=== PATIENT | female | born 1930 | race Caucasian/White ===

== ENCOUNTER → 2016-11-11 | Outpatient (CLI) | payer OTHER, BC ==
[~2016-11-11] MED LIST: DONE1TAB11 PO; EZET10TA47 PO; LEVO100T7 PO; SOLI10TA2 PO
[2016-11-11 19:20] LABS: BLOOD UREA NITROGEN 24 mg/dl (7-18); BUN/CREATININE RATIO 27.9 (10-20); CALCIUM 8.9 mg/dl (8.5-10.1); CARBON DIOXIDE 28 mmol/L (21-32); CHLORIDE 107 mmol/L (98-107); CREATININE 0.85 mg/dl (0.60-1.20); GLUCOSE 107 mg/dl (70-99); POTASSIUM 4.3 mmol/L (3.5-5.1); SODIUM 143 mmol/L (136-145)
--- NOTE | 2016-11-11 19:21 | DIAGNOSTIC IMAGING REPORT ---
LEFT TIBIA/FIBULA 2 VIEWS ROUTINE CLINICAL HISTORY: Lower leg pain status post trauma COMPARISON: 09/20/2016 DISCUSSION: No acute fractures or dislocations are visualized. There is a plantar calcaneal spur. There is lower leg soft tissue edema. IMPRESSION: Soft tissue edema. No fractures are visualized. Electronically signed by: Cirilo Rice M.D. 11/11/2016 7:19 PM Dictated Date/Time: 11/11/2016 7:19 PM
--- NOTE | 2016-11-11 19:22 | DIAGNOSTIC IMAGING REPORT ---
LEFT HIP UNILATERAL 2 VIEWS CLINICAL HISTORY: Left hip pain COMPARISON: None. DISCUSSION: No fractures or dislocations are visualized. The joint space appears well-preserved for age. There are no erosive or destructive changes. IMPRESSION: No fractures or dislocations identified. Electronically signed by: Cirilo Rice M.D. 11/11/2016 7:20 PM Dictated Date/Time: 11/11/2016 7:20 PM
[2016-11-11 19:34] LABS: BASO % 0.3 %; BASO ABS # 0.02 K/uL (0-0.2); COMPLETE YES; EOS % 2.9 %; HEMATOCRIT 39.9 % (37-47); IG% 0.2 %; LYMPH % 26.1 %; LYMPH ABS # 1.55 K/uL (1.2-3.4); MEAN CELL VOLUME 93.2 fL (80-100); MEAN CORPUSCULAR HEMOGLOBIN 29.7 pg (25-34); MEAN CORPUSCULAR HGB CONC 31.8 g/dl (32-36); MEAN PLATELET VOLUME 11.3 fL (7.4-10.4); MONO % 8.6 %; NEUT % 61.9 %; PLATELET COUNT 166 K/uL (130-400); PLT ESTIMATE DECREASED; RED BLOOD COUNT 4.28 M/uL (4.2-5.4); WHITE BLOOD COUNT 5.94 K/uL (4.8-10.8)
== END | disposition home or self-care (01) ==
LOC: C.LAB 17:33
PROVIDERS: ATTEND Internal Medicine Geriatric Medicine
DX: M79.606 Pain in leg, unspecified (principal); W19.XXXA Unspecified fall, initial encounter; R60.0 Localized edema

== ENCOUNTER → 2017-02-24 | Outpatient (CLI) | payer OTHER, BC ==
[~2017-02-24] MED LIST changes: +CEPH500C PO; +CLC/300 PO
--- NOTE | 2017-02-24 17:50 | DIAGNOSTIC IMAGING REPORT ---
ULTRASOUND LEFT LOWER EXTREMITY VENOUS CLINICAL HISTORY: Left leg edema. COMPARISON STUDY: No priors. TECHNIQUE: Real-time, grayscale, and color Doppler sonography of the deep veins of the left lower extremity was performed from the inguinal crease to the calf. Compression and augmentation were utilized. FINDINGS: There is no sonographic evidence of deep venous thrombosis identified in the left lower extremity. The common femoral, superficial femoral, and popliteal veins are patent and normally compressible. The greater saphenous vein and the profunda femoris vein at the junction with the common femoral vein are clear. The visualized calf veins are patent. IMPRESSION: There is no sonographic evidence of deep venous thrombosis identified in the left lower extremity. Electronically signed by: Cristofer Medina M.D. 02/24/2017 5:49 PM Dictated Date/Time: 02/24/2017 5:48 PM
--- NOTE | 2017-02-24 17:55 | DIAGNOSTIC IMAGING REPORT ---
TWO VIEW CHEST CLINICAL HISTORY: Dyspnea. FINDINGS: PA and lateral chest radiographs are compared to study dated 10/26/2012. The PA view is degraded by patient rotation. A 2-lead cardiac pacemaker partially obscures the left upper chest. This is new from 2013. The heart is enlarged and there is atherosclerotic calcification of the thoracic aorta. Pulmonary vasculature is noncongested. Chronic interstitial thickening is unchanged. There is bibasilar atelectasis. The lungs and pleural spaces are otherwise clear. There is no pneumothorax. The skeletal structures are osteopenic. The bony thorax appears intact. Degenerative change and hyperkyphosis are noted in the thoracic spine. IMPRESSION: 1. Cardiomegaly and cardiac pacemaker. There is no radiographic evidence of congestive failure. 2. There is no airspace consolidation or pleural effusion. Electronically signed by: Cristofer Medina M.D. 02/24/2017 5:54 PM Dictated Date/Time: 02/24/2017 5:53 PM
[2017-02-24 18:09] LABS: BASO % 0.5 %; BASO ABS # 0.04 K/uL (0-0.2); COMPLETE YES; EOS % 2.1 %; HEMATOCRIT 44.4 % (37-47); IG% 0.1 %; LYMPH % 27.1 %; LYMPH ABS # 2.05 K/uL (1.2-3.4); MEAN CELL VOLUME 93.5 fL (80-100); MEAN CORPUSCULAR HEMOGLOBIN 29.9 pg (25-34); MEAN PLATELET VOLUME 10.9 fL (7.4-10.4); MONO % 9.9 %; NEUT % 60.3 %; PLATELET COUNT 256 K/uL (130-400); RED BLOOD COUNT 4.75 M/uL (4.2-5.4); WHITE BLOOD COUNT 7.57 K/uL (4.8-10.8)
[2017-02-24 18:41] LABS: BLOOD UREA NITROGEN 22 mg/dl (7-18); BUN/CREATININE RATIO 27.6 (10-20); CALCIUM 8.9 mg/dl (8.5-10.1); CARBON DIOXIDE 29 mmol/L (21-32); CHLORIDE 107 mmol/L (98-107); GLUCOSE 93 mg/dl (70-99); SODIUM 142 mmol/L (136-145)
== END | disposition home or self-care (01) ==
LOC: C.ULTR 17:03
PROVIDERS: ATTEND Physician Assistant Medical
DX: R06.02 Shortness of breath (principal); R60.9 Edema, unspecified; I51.7 Cardiomegaly; Z95.0 Presence of cardiac pacemaker

== ENCOUNTER 2017-09-03 16:40 | Emergency (ER) | payer OTHER, BC ==
[~2017-09-03] VITALS: Ht 175.3 cm; Wt 79.6 kg
[~2017-09-03 16:40] MED LIST changes: -CEPH500C PO; -CLC/300 PO
[2017-09-03 16:43] VITALS: TEMP 36.7; Ht 175.3 cm; Wt 79.6 kg
[2017-09-03 17:38] LABS: BASO % 0.3 %; BASO ABS # 0.02 K/uL (0-0.2); COMPLETE YES; EOS % 3.6 %; HEMATOCRIT 38.8 % (37-47); LYMPH % 28.7 %; LYMPH ABS # 1.68 K/uL (1.2-3.4); MEAN CELL VOLUME 94.2 fL (80-100); MEAN CORPUSCULAR HEMOGLOBIN 29.9 pg (25-34); MEAN CORPUSCULAR HGB CONC 31.7 g/dl (32-36); MEAN PLATELET VOLUME 11.6 fL (7.4-10.4); MONO % 11.8 %; NEUT % 55.6 %; PLATELET COUNT 236 K/uL (130-400); RED BLOOD COUNT 4.12 M/uL (4.2-5.4); WHITE BLOOD COUNT 5.85 K/uL (4.8-10.8)
[2017-09-03 18:04] LABS: ALB/GLOB RATIO 0.9 (0.9-2); BUN/CREATININE RATIO 22.9 (10-20); CALCIUM 8.8 mg/dl (8.5-10.1); CREATININE 0.72 mg/dl (0.60-1.20)
--- NOTE | 2017-09-03 18:45 | DIAGNOSTIC IMAGING REPORT ---
LEFT LOWER EXTREMITY VENOUS DOPPLER CLINICAL HISTORY: Left leg swelling. COMPARISON STUDY: Left lower extremity venous Doppler Feb 24 2017. TECHNIQUE: Sonography of the deep venous system of the left lower extremity was performed. Compression and augmentation were evaluated. FINDINGS: The left common femoral, superficial femoral and popliteal veins were compressible. Augmentation was normal. Flow was shown within the deep calf vessels. Subcutaneous edema of the left calf was noted. IMPRESSION: No evidence of deep venous thrombus within the left lower extremity. Electronically signed by: Irwin Villar M.D. 09/03/2017 6:43 PM Dictated Date/Time: 09/03/2017 6:43 PM
--- NOTE | 2017-09-03 19:35 | EMERGENCY ROOM VISIT NOTE ---
ED Visit Note First contact with patient: 16:48 87-year-old female with swelling of her left lower leg was fully evaluated by Gabe Edmonds PA-C. Please see his note. I also independently evaluated the patient. The patient appears to have early cellulitis. The patient will be placed on antibiotics. The patient will require close follow-up.
[2017-09-03] MEDS ORDERED: CEPHALEXIN 500MG HOME PACK 1 EA BTL PO ONE (19:45)
[2017-09-03] MEDS ORDERED: CEPHALEXIN MONOHYDRATE 250 MG CAP PO ONE (19:45)
[2017-09-03] MEDS ORDERED: CEPH500C PO (19:45)
[2017-09-03 20:03] VITALS: BP 167/90; PULSE 78; O2SAT 97
--- NOTE | 2017-09-04 16:38 | EMERGENCY ROOM VISIT NOTE ---
History First contact with patient: 16:48 Chief Complaint: WOUND INFECTION Stated Complaint: BLOOD BLISTERS ON LT LEG, DISCOMFORT, SWELLING Nursing Triage Summary: pt arrived with daughter c/o left lower leg pain with reddend and swollen "its been coming on today" pt hx of pace maker History of Present Illness The patient is a 87 year old female who presents to the Emergency Room with complaints of redness and swelling to her left lower leg. She states the swelling has been off and on for a few days, but now she has some increased redness on the outside part of her leg. The patient does not recall injury or trauma. She has not had a fever chills. No chest pain or shortness of breath. 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 She is accompanied by her daughter today. The patient does not have other complaints. She is able to ambulate without difficulty. No recent travel history or history of DVT. Review of Systems More than 10 systems were reviewed and otherwise negative with the exception of history of present illness. Past Medical/Surgical History Medical Problems: (1) H/O cardiac pacemaker (2) Heart disease (3) HTN (hypertension) (4) HYPOTHYROIDISM NOS (5) Urinary problem Family History Cancer Social History Smoking Status: Never Smoker Alcohol Use: none Marital Status: Housing Status: lives with family Occupation Status: retired Current/Historical Medications Scheduled Cephalexin Monohydrate (Keflex), 500 MG PO TID Ezetimibe (Zetia), 10 MG PO DAILY Levothyroxine Sodium (Levothyroxine Sodium), 100 MCG PO DAILY Solifenacin (Vesicare), 10 MG PO DAILY Physical Exam Vital Signs Date Time Temp Pulse Resp B/P (MAP) Pulse Ox O2 Delivery O2 Flow Rate FiO2 09/03/17 20:03 78 18 167/90 97 09/03/17 18:45 81 167/90 95 Room Air 09/03/17 16:43 36.7 99 18 162/87 99 Room Air Physical Exam VITALS: Vitals are noted on the nurse's note and reviewed by myself. Vital signs stable. GENERAL: Pleasant elderly female who does not appear toxic and is cooperative with the examination HEART: Regular rate and rhythm without murmurs gallops or rubs. LUNGS: Clear to auscultation bilaterally without wheezes, rales or rhonchi. No retractions or accessory muscle use. MUSCULOSKELETAL: Bilateral 2+ pretibial edema is noted. The left lower extremity is with some erythema laterally that seems to extend roughly from the lateral malleolus to the proximal fibula. There is no distinct abscess or lymphangitic streaking. This area is not warm on palpation. NEURO: Patient was alert and oriented to person place and time. CN II through XII grossly intact. Medical Decision & Procedures ER Provider Diagnostic Interpretation: LEFT LOWER EXTREMITY VENOUS DOPPLER CLINICAL HISTORY: Left leg swelling. COMPARISON STUDY: Left lower extremity venous Doppler Feb 24 2017. TECHNIQUE: Sonography of the deep venous system of the left lower extremity was performed. Compression and augmentation were evaluated. FINDINGS: The left common femoral, superficial femoral and popliteal veins were compressible. Augmentation was normal. Flow was shown within the deep calf vessels. Subcutaneous edema of the left calf was noted. IMPRESSION: No evidence of deep venous thrombus within the left lower extremity. Laboratory Results 09/03/17 17:15 Red Blood Count 4.12, Mean Corpuscular Volume 94.2, Mean Corpuscular Hemoglobin 29.9, Mean Corpuscular Hemoglobin Concent 31.7, Mean Platelet Volume 11.6, Neutrophils (%) (Auto) 55.6, Lymphocytes (%) (Auto) 28.7, Monocytes (%) (Auto) 11.8, Eosinophils (%) (Auto) 3.6, Basophils (%) (Auto) 0.3, Neutrophils # (Auto ) 3.25, Lymphocytes # (Auto) 1.68, Monocytes # (Auto) 0.69, Eosinophils # (Auto ) 0.21, Basophils # (Auto) 0.02 09/03/17 17:15 Test 09/03/17 17:15 09/03/17 17:20 White Blood Count 5.85 K/uL (4.8-10.8) Red Blood Count 4.12 M/uL (4.2-5.4) Hemoglobin 12.3 g/dL (12.0-16.0) Hematocrit 38.8 % (37-47) Mean Corpuscular Volume 94.2 fL (80-100) Mean Corpuscular Hemoglobin 29.9 pg (25-34) Mean Corpuscular Hemoglobin Concent 31.7 g/dl (32-36) Platelet Count 236 K/uL (130-400) Mean Platelet Volume 11.6 fL (7.4-10.4) Neutrophils (%) (Auto) 55.6 % Lymphocytes (%) (Auto) 28.7 % Monocytes (%) (Auto) 11.8 % Eosinophils (%) (Auto) 3.6 % Basophils (%) (Auto) 0.3 % Neutrophils # (Auto) 3.25 K/uL (1.4-6.5) Lymphocytes # (Auto) 1.68 K/uL (1.2-3.4) Monocytes # (Auto) 0.69 K/uL (0.11-0.59) Eosinophils # (Auto) 0.21 K/uL (0-0.5) Basophils # (Auto) 0.02 K/uL (0-0.2) RDW Standard Deviation 49.2 fL (36.4-46.3) RDW Coefficient of Variation 14.4 % (11.5-14.5) Immature Granulocyte % (Auto) 0.0 % Immature Granulocyte # (Auto) 0.00 K/uL (0.00-0.02) Anion Gap 5.0 mmol/L (3-11) Est Creatinine Clear Calc Drug Dose 61.0 ml/min Estimated GFR () 86.7 Estimated GFR (Non- 74.8 BUN/Creatinine Ratio 22.9 (10-20) Calcium Level 8.8 mg/dl (8.5-10.1) Total Bilirubin 0.4 mg/dl (0.2-1) Aspartate Amino Transf (AST/SGOT) 23 U/L (15-37) Alanine Aminotransferase (ALT/SGPT) 18 U/L (12-78) Alkaline Phosphatase 83 U/L (45-117) Pro-B-Type Natriuretic Peptide 368 pg/ml (0-1800) Total Protein 7.4 gm/dl (6.4-8.2) Albumin 3.5 gm/dl (3.4-5.0) Globulin 3.9 gm/dl (2.5-4.0) Albumin/Globulin Ratio 0.9 (0.9-2) Chemistry Specimen Hemolysis Bedside Troponin I < 0.030 ng/ml (0-0.045) Medications Administered Medications (Trade) Dose Ordered Sig/Anselmo Route Start Time Stop Time Status Last Admin Dose Admin Cephalexin Monohydrate (Keflex 500MG Home Pack) 1 homepack NOW ONCE PO 09/03/17 19:45 09/03/17 19:46 DC 09/03/17 19:56 1 HOMEPACK Cephalexin Monohydrate (Keflex Cap) 500 mg NOW ONCE PO 09/03/17 19:45 09/03/17 19:46 DC 09/03/17 19:56 500 MG ED Course Physical exam and history were performed. Nursing notes, EMR, and Medication List were personally reviewed. Patient appears to have redness and swelling to her left lower extremity without injury or trauma. She is not diabetic. She does not appear toxic on examination, however there is concern for early cellulitis versus DVT. IV access was established and labs were obtained. Ultrasound was performed. The patient's blood work is as above and was reviewed. She does not have a significantly elevated white blood cell count, gross anemia, bandemia, or significant electrolyte imbalance. Her ultrasound did not reveal evidence of DVT. The case was discussed with my attending physician, Dr. Tsang, who also independently evaluated the patient. We agree the patient seems to have a very early cellulitis of this lower extremity. We will start her on a course of Keflex here in the department and provide her a prescription of the same. The patient will need close follow-up of this to ensure that it is improving, however today the Friday before , and her PCP office will be closed. I did engage case management regarding this need for follow-up, and case management will attempt to contact her PCPs office on Friday. The patient was thoroughly educated to return to the ER with any new, worsening, or concerning symptoms. The family was pleased with plan of care and voiced understanding. The chart was completed utilizing [employer] Speech Voice Recognition Software. Grammatical errors, random word insertions, pronoun errors, and incomplete sentences are an occasional consequence of this system due to software limitations, ambient noise, and hardware issues. Any formal questions or concerns about the content, text, or information contained within the body of this dictation should be directly addressed to the provider for clarification. . Medical Decision Differential diagnosis: Etiologies such as cellulitis, abscess, MRSA infection, DVT, necrotizing fasciitis, dermatitis, drug eruption, as well as others were entertained.. Medication Reconcilliation Current Medication List: was personally reviewed by me Blood Pressure Screening Patient's blood pressure: Elevated blood pressure Blood pressure disposition: Elevated BP felt to be situational, Referred to PCP Impression Primary Impression: Cellulitis of leg, left Departure Information Dispostion Home / Self-Care Condition GOOD Prescriptions Cephalexin Monohydrate (Keflex) 500 Mg Cap 500 MG PO TID for 10 Days, #30 CAP Prov: Gabe Edmonds PA-C 09/03/17 Forms HOME CARE DOCUMENTATION FORM, IMPORTANT VISIT INFORMATION Patient Instructions My [facility] Additional Instructions You were seen and evaluated today on an emergency basis only. This is not a substitute for, or an effort to provide, complete comprehensive medical care. It is not possible to recognize and treat all injuries or illnesses in a single emergency department visit. For this reason it is recommended that you followup with your primary care physician on Friday or Friday for recheck of your condition. Our briefcase sewer here from the ER will try to call and help facilitate this appointment for you. Cephalexin(Keflex) 500mg: Take one pill 3 times daily for 10 days for your skin infection. All antibiotics can cause diarrhea. If this occurs and you feel worse or it does not resolve in 1-2 days follow up with your doctor or return to the Emergency Department as this could be signs of serious underlying problems. Any medication can cause an allergic reaction, stop the pills immediately and return to the ER for rash, hives, breathing difficulties, or swelling. Elevate your left leg to help reduce the swelling You are welcome to return to the emergency department anytime with new, worsening, or concerning symptoms.
== END 2017-09-03 20:03 | disposition home or self-care (01) ==
LOC: C.EDB 16:41 → C.EDC 20:03
DX: L03.116 Cellulitis of left lower limb (principal); I11.9 Hypertensive heart disease without heart failure; E03.9 Hypothyroidism, unspecified; Z95.0 Presence of cardiac pacemaker; Z80.9 Family history of malignant neoplasm, unspecified; Z79.899 Other long term (current) drug therapy

== ENCOUNTER 2017-09-05 18:57 | Inpatient (IN) | payer OTHER, BC ==
[~2017-09-05] VITALS: Ht 165.1 cm; Wt 77.5 kg
[~2017-09-05 18:57] MED LIST changes: +CEPH500C PO; -DONE1TAB11 PO
--- NOTE | 2017-09-05 19:22 | EMERGENCY ROOM VISIT NOTE ---
History Report prepared by Rosetta: Hayden Joyce Under the Supervision of: Dr. Mike Garcia M.D. First contact with patient: 19:11 Chief Complaint: WOUND INFECTION Stated Complaint: LEG INFECTION,TENDERNESS,SWELLING,RED SORES History of Present Illness The patient is an 87 year old female who presents to the Emergency Room with complaints of worsening bilateral lower leg cellulitis that started a few days ago. The patient was seen here 2 days ago, and had a negative ultrasound of her left leg, and was diagnosed with cellulitis. She was put on Keflex. The patient' s daughter states that the patient's left leg is looking much brighter red, and the infection appears deeper, and the right leg has worsened as well. The patient states that she has been taking her Keflex, but still is having lower leg pain. The patient has been having trouble getting warm today, and her teeth were chattering earlier. The patient denies any chest pain, shortness of breath , or abdominal pain. She notes that she has a pacemaker, and has had trouble with fluid in her legs years ago. The patient says that she normally runs some fluid in her legs. She is not on any blood thinners. The patient states that she is feeling fine besides the legs, but per the patient's daughter, the patient has seemed fatigued and not herself recently. Source of History: patient, family (daughter) Onset: A few days ago Position: leg (bilateral) Symptom Intensity: looks much worse than 2 days ago Quality: other (diagnosed with cellulitis - redness, pain, deep infection) Timing: worsening Associated Symptoms: + fatigue, No chest pain, No SOB, No abdominal pain Note: Associated symptoms: Trouble getting warm, teeth chattering. Review of Systems See HPI for pertinent positives & negatives. A total of 10 systems reviewed and were otherwise negative. Past Medical & Surgical Medical Problems: (1) Cellulitis of both lower extremities (2) H/O cardiac pacemaker (3) Heart disease (4) HTN (hypertension) (5) HYPOTHYROIDISM NOS (6) Urinary problem Old medical records were reviewed. Nurse's notes were reviewed and I agree with. Family History Cancer Social History Smoking Status: Never Smoker Alcohol Use: none Marital Status: Housing Status: lives with family Occupation Status: retired Current/Historical Medications Scheduled Cephalexin Monohydrate (Keflex), 500 MG PO TID Ezetimibe (Zetia), 10 MG PO DAILY Levothyroxine Sodium (Levothyroxine Sodium), 100 MCG PO DAILY Solifenacin (Vesicare), 10 MG PO DAILY Allergies Coded Allergies: Adhesives (Verified Allergy, Unknown, ., 09/03/17) Morphine (Verified Allergy, Unknown, ., 09/03/17) Sulfa Drugs (Verified Allergy, Unknown, ., 09/03/17) Physical Exam Vital Signs Date Time Temp Pulse Resp B/P (MAP) Pulse Ox O2 Delivery O2 Flow Rate FiO2 09/05/17 19:01 36.2 69 21 134/64 97 Room Air Physical Exam General: Non-ill appearing older female in no acute distress. HEENT: Normal cephalic atraumatic. Pupils are equal round and reactive to light. Extraocular movements are intact. Oropharynx is pink with moist mucous membranes. No swelling of the mouth lips or tongue. Neck: Supple with a midline trachea. No meningeal signs or stiffness, no JVD or bruits. No Stridor. Chest: Clear to auscultation bilaterally. No wheezes or rhonchi. No increased work of breathing. Heart: regular rate and rhythm. Abdomen: Soft nontender, nondistended without rebound guarding or rigidity. Extremities: Has 1+ bilateral lower extremity edema. Shins are red and tender bilaterally, normal distal pulses. Feet appear well-perfused. Left lateral thigh has lacy bruising that is nonblanching. Spine/Back. Non tender to palpation. No CVA tenderness Skin: Good turgor without rashes. Neurologic exam: Cranial nerves two through 12 are intact. Motor and sensation are intact and symmetrical throughout. Medical Decision & Procedures Laboratory Results 09/05/17 19:42 Red Blood Count 4.53, Mean Corpuscular Volume 94.0, Mean Corpuscular Hemoglobin 31.1, Mean Corpuscular Hemoglobin Concent 33.1, Mean Platelet Volume 11.8, Neutrophils (%) (Auto) 73.9, Lymphocytes (%) (Auto) 10.3, Monocytes (%) (Auto) 9.6, Eosinophils (%) (Auto) 5.6, Basophils (%) (Auto) 0.3, Neutrophils # (Auto) 7.11, Lymphocytes # (Auto) 0.99, Monocytes # (Auto) 0.92, Eosinophils # (Auto) 0.54, Basophils # (Auto) 0.03 09/05/17 19:42 Test 09/05/17 19:42 09/05/17 19:45 White Blood Count 9.62 K/uL (4.8-10.8) Red Blood Count 4.53 M/uL (4.2-5.4) Hemoglobin 14.1 g/dL (12.0-16.0) Hematocrit 42.6 % (37-47) Mean Corpuscular Volume 94.0 fL (80-100) Mean Corpuscular Hemoglobin 31.1 pg (25-34) Mean Corpuscular Hemoglobin Concent 33.1 g/dl (32-36) Platelet Count 231 K/uL (130-400) Mean Platelet Volume 11.8 fL (7.4-10.4) Neutrophils (%) (Auto) 73.9 % Lymphocytes (%) (Auto) 10.3 % Monocytes (%) (Auto) 9.6 % Eosinophils (%) (Auto) 5.6 % Basophils (%) (Auto) 0.3 % Neutrophils # (Auto) 7.11 K/uL (1.4-6.5) Lymphocytes # (Auto) 0.99 K/uL (1.2-3.4) Monocytes # (Auto) 0.92 K/uL (0.11-0.59) Eosinophils # (Auto) 0.54 K/uL (0-0.5) Basophils # (Auto) 0.03 K/uL (0-0.2) RDW Standard Deviation 48.8 fL (36.4-46.3) RDW Coefficient of Variation 14.3 % (11.5-14.5) Immature Granulocyte % (Auto) 0.3 % Immature Granulocyte # (Auto) 0.03 K/uL (0.00-0.02) Red Blood Cell Morphology Unremarkable Prothrombin Time 10.6 SECONDS (9.0-12.0) Prothromb Time International Ratio 1.0 (0.9-1.1) Activated Partial Thromboplast Time 28.5 SECONDS (21.0-31.0) Partial Thromboplastin Ratio 1.1 Anion Gap 5.0 mmol/L (3-11) Estimated GFR () 62.8 Estimated GFR (Non- 54.2 BUN/Creatinine Ratio 21.4 (10-20) Calcium Level 9.0 mg/dl (8.5-10.1) Total Bilirubin 0.7 mg/dl (0.2-1) Direct Bilirubin 0.1 mg/dl (0-0.2) Aspartate Amino Transf (AST/SGOT) 24 U/L (15-37) Alanine Aminotransferase (ALT/SGPT) 20 U/L (12-78) Alkaline Phosphatase 99 U/L (45-117) Total Protein 8.5 gm/dl (6.4-8.2) Albumin 3.6 gm/dl (3.4-5.0) Lipase 137 U/L (73-393) Bedside Lactic Acid Venous 1.35 mmol/L (0.90-1.70) Laboratory studies as stated above per my review. Medications Administered Medications (Trade) Dose Ordered Sig/Anselmo Route Start Time Stop Time Status Last Admin Dose Admin Cefepime HCl 2000 mg/Syringe 20 ml @ 5 mls/min NOW STAT IV 09/05/17 19:33 09/05/17 19:36 DC 09/05/17 19:33 5 MLS/MIN Vancomycin HCl 2000 mg/Sodium Chloride 540 ml @ 200 mls/hr NOW STAT IV 09/05/17 19:33 09/05/17 22:14 DC 09/05/17 19:58 200 MLS/HR ECG Indication: other (cellulitis) Rate (beats per minute): 81 Rhythm: other (ventricular paced rhythm) Findings: PVC, no acute ischemic change Change: no significant change (from Sep 03 2017) ED Course 1911: Past medical records reviewed. The patient was evaluated in room A9B, and a complete history and physical examination were performed. 3: I consulted the pharmacist, and she recommended Vancomycin and Cefepime IV , and she will order them. We will potentially order Clindamycin if the patient' s white count and lactic acid are significantly elevated. Ordered Vancomycin HCl 2000 mg/Sodium Chloride 540 ml @ 200 mls/hr IV. 2019: Upon reevaluation, the patient is resting. I discussed the results and treatment plan with the patient. She verbalized agreement of the treatment plan. The patient will be evaluated for further management. 2024: I discussed the patient with Dr. Mtz - [facility] work distributor - he will evaluate the patient for further treatment. Medical Decision Differentials include cellulitis, sepsis, venous or arterial disease, necrotizing fasciitis. This patient comes in as described above. She was placed in room A9. She comes in after having worsening of cellulitis. She has no fever may have had some chills earlier she's been on Keflex. It's on both of her legs left greater than right. The left leg did have an ultrasound 2 days ago which showed no evidence of DVT she has no evidence of any vascular compromise has normal motor and sensation both of her shins are red and tender she has had a lacy rash up into her thigh as well which is nonblanching. There is no crepitus. She has no significant elevation of her white count or lactic acid, to suggest sepsis. IV access established and blood work was obtained. I did discuss antibiotic coverage with our pharmacist and we are going to give her IV cefepime and IV vancomycin for broad-spectrum coverage for cellulitis. I have discussed case with Dr. Bradshaw. I do think she needs to be admitted for IV antibiotics as she has failed outpatient therapy as well as further treatment and evaluation. The patient and her daughter were happy with the plan. Medication Reconcilliation Current Medication List: was personally reviewed by me Blood Pressure Screening Patient's blood pressure: Elevated blood pressure Blood pressure disposition: Elevated BP felt to be situational Consults Time Called: 1929 Consulting Physician: Pharmacist Returned Call: 1932 I consulted the pharmacist, and she recommended Vancomycin and Cefepime IV, and she will order them. We will potentially order Clindamycin if the patient's white count and lactic acid are significantly elevated. Additional Consults: Time Called: 2019 Consulted Physician: Dr. Bibi ALEJANDRA work distributor Returned Call: 2024 Additional Comments: I discussed the patient with Dr. Bibi ALEJANDRA work distributor - he will evaluate the patient for further treatment. Impression Primary Impression: Cellulitis Additional Impression: Failure of outpatient treatment Scribe Attestation The scribe's documentation has been prepared under my direction and personally reviewed by me in its entirety. I confirm that the note above accurately reflects all work, treatment, procedures, and medical decision making performed by me. Departure Information Dispostion Being Evaluated By Hospitalist Referrals Devin Jackson M.D. (PCP) Patient Instructions My [facility] Problem Qualifiers
[2017-09-05] MEDS ORDERED: PIPERACILLIN/TAZOBACTAM 4.5 GM/100ML D5W IV STA (19:25)
[2017-09-05] MEDS ORDERED: VANCOMYCIN INJ 2,000 MG in SODIUM CHLORIDE 0.9% 500ML 500 ML IV STA (19:33)
[2017-09-05] MEDS ORDERED: CEFEPIME IV 2,000 MG in SYRINGE 7.5 ML IV STA (19:33)
[2017-09-05 20:08] LABS: BASO % 0.3 %; BASO ABS # 0.03 K/uL (0-0.2); COMPLETE YES; EOS % 5.6 %; HEMATOCRIT 42.6 % (37-47); IG% 0.3 %; LYMPH % 10.3 %; LYMPH ABS # 0.99 K/uL (1.2-3.4); MEAN CORPUSCULAR HEMOGLOBIN 31.1 pg (25-34); MEAN CORPUSCULAR HGB CONC 33.1 g/dl (32-36); MONO % 9.6 %; NEUT % 73.9 %; PLATELET COUNT 231 K/uL (130-400); RED BLOOD COUNT 4.53 M/uL (4.2-5.4); WHITE BLOOD COUNT 9.62 K/uL (4.8-10.8)
[2017-09-05 20:10] LABS: PARTIAL THROMBOPLASTIN RATIO 1.1; PROTHROMBIN TIME (PATIENT) 10.6 SECONDS (9.0-12.0)
[2017-09-05 20:17] LABS: ALT/SGPT 20 U/L (12-78); BLOOD UREA NITROGEN 20 mg/dl (7-18); BUN/CREATININE RATIO 21.4 (10-20); CARBON DIOXIDE 29 mmol/L (21-32); CHLORIDE 103 mmol/L (98-107); CREATININE 0.94 mg/dl (0.60-1.20); GLUCOSE 110 mg/dl (70-99); POTASSIUM 4.1 mmol/L (3.5-5.1); SODIUM 137 mmol/L (136-145)
[2017-09-05 20:20] LABS: ALKALINE PHOSPHATASE 99 U/L (45-117); AST/SGOT 24 U/L (15-37)
[2017-09-05 20:24] LABS: MEAN PLATELET VOLUME 11.8 fL (7.4-10.4)
[2017-09-05] MEDS ORDERED: POLYETHYLENE (MIRALAX) 17 GM PACK PO PRN (21:00)
[2017-09-05] MEDS ORDERED: CEFEPIME IV 1,000 MG in DEXTROSE 5% 100ML 100 ML IV SCH (21:00)
[2017-09-05] MEDS ORDERED: ALUMINUM/MAGNESIUM/SIMETH (MAALOX MAX) 30 ML UDC PO PRN (21:00)
[2017-09-05] MEDS ORDERED: ONDANSETRON INJ 2 MG/ML 2 ML VIAL IV PRN (21:00)
[2017-09-05] MEDS ORDERED: ACETAMINOPHEN 325 MG TAB PO PRN (21:00)
[2017-09-05] MEDS ORDERED: MAGNESIUM HYDROXIDE SUSP 30 ML UDC PO PRN (21:00)
[2017-09-05 21:06] VITALS: O2SAT 96
--- NOTE | 2017-09-05 21:07 | History and Physical ---
History & Physical Date & Time of Service: Sep 05, 2017 at 20:53 Chief Complaint: Leg Infection,Tenderness,Swelling,Red Sores Primary Care Physician: Devin Jackson M.D. History of Present Illness Source: patient, family Preston is an 87 year old female who presents with her daughter for evaluation of cellulitis. She came to the ED on Friday with early bilateral cellulitis, was started on Keflex, and had US to rule out a DVT, and was sent home. She felt ok yesterday and enjoyed her Thanksgiving, but frequently had chills. She denied fevers. She noticed the redness spread up the leg higher, and so came back to the ED today. There are some areas with bloody drainage on the L leg as well. She has chronic venous stasis but has never had cellulitis. She is otherwise healthy and lives at home with her daughter in [place]. She denies chest pain, shortness of breath, itch to the legs, pain in the legs, or other new symptoms compared to before apart from spreading of the redness up her legs. She normally ambulates with a cane but has been on bedrest since the cellulitis developed. Past Medical/Surgical History PMHx: Heart disease HTN Hypothyroidism Urinary incontinence Short-term memory loss PSHx: Pacemaker placement Family History Cancer Social History Smoking Status: Never Smoker Marital Status: Occupational Status: retired Allergies Coded Allergies: Adhesives (Verified Allergy, Unknown, ., 09/03/17) Morphine (Verified Allergy, Unknown, ., 09/03/17) Sulfa Drugs (Verified Allergy, Unknown, ., 09/03/17) Home Medications Scheduled Cephalexin Monohydrate (Keflex), 500 MG PO TID Ezetimibe (Zetia), 10 MG PO DAILY Levothyroxine Sodium (Levothyroxine Sodium), 100 MCG PO DAILY Solifenacin (Vesicare), 10 MG PO DAILY Review of Systems See HPI for pertinent positives & negatives. A total of 10 systems reviewed and were otherwise negative. Physical Exam Vital Signs Date Time Temp Pulse Resp B/P (MAP) Pulse Ox O2 Delivery O2 Flow Rate FiO2 09/05/17 19:01 36.2 69 21 134/64 97 Room Air General Appearance: WD/WN, no apparent distress Head: normocephalic, atraumatic Eyes: normal inspection, PERRL ENT: hearing grossly normal Neck: supple, no JVD Respiratory/Chest: lungs clear, normal breath sounds, no respiratory distress Cardiovascular: regular rate, rhythm, no murmur, normal peripheral pulses Abdomen/GI: normal bowel sounds, non tender, soft Back: normal inspection, no CVA tenderness, no muscle spasm Extremities/Musculoskelatal: no calf tenderness, no pedal edema Neurologic/Psych: alert, normal mood/affect, oriented x 3 Skin: + rash (erythema bilaterally up to mid-leg, including feet. areas of dried blood to lateral L leg.) Diagnostics Laboratory Results Results Past 24 Hours Test 09/05/17 19:42 09/05/17 19:45 Range/Units White Blood Count 9.62 4.8-10.8 K/uL Red Blood Count 4.53 4.2-5.4 M/uL Hemoglobin 14.1 12.0-16.0 g/dL Hematocrit 42.6 37-47 % Mean Corpuscular Volume 94.0 80-100 fL Mean Corpuscular Hemoglobin 31.1 25-34 pg Mean Corpuscular Hemoglobin Concent 33.1 32-36 g/dl Platelet Count 231 130-400 K/uL Mean Platelet Volume 11.8 7.4-10.4 fL Neutrophils (%) (Auto) 73.9 % Lymphocytes (%) (Auto) 10.3 % Monocytes (%) (Auto) 9.6 % Eosinophils (%) (Auto) 5.6 % Basophils (%) (Auto) 0.3 % Neutrophils # (Auto) 7.11 1.4-6.5 K/uL Lymphocytes # (Auto) 0.99 1.2-3.4 K/uL Monocytes # (Auto) 0.92 0.11-0.59 K/uL Eosinophils # (Auto) 0.54 0-0.5 K/uL Basophils # (Auto) 0.03 0-0.2 K/uL RDW Standard Deviation 48.8 36.4-46.3 fL RDW Coefficient of Variation 14.3 11.5-14.5 % Immature Granulocyte % (Auto) 0.3 % Immature Granulocyte # (Auto) 0.03 0.00-0.02 K/uL Red Blood Cell Morphology Unremarkable Prothrombin Time 10.6 9.0-12.0 SECONDS Prothromb Time International Ratio 1.0 0.9-1.1 Activated Partial Thromboplast Time 28.5 21.0-31.0 SECONDS Partial Thromboplastin Ratio 1.1 Sodium Level 137 136-145 mmol/L Potassium Level 4.1 3.5-5.1 mmol/L Chloride Level 103 98-107 mmol/L Carbon Dioxide Level 29 21-32 mmol/L Anion Gap 5.0 3-11 mmol/L Blood Urea Nitrogen 20 7-18 mg/dl Creatinine 0.94 0.60-1.20 mg/dl Estimated GFR () 62.8 Estimated GFR (Non- 54.2 BUN/Creatinine Ratio 21.4 10-20 Random Glucose 110 70-99 mg/dl Calcium Level 9.0 8.5-10.1 mg/dl Total Bilirubin 0.7 0.2-1 mg/dl Direct Bilirubin 0.1 0-0.2 mg/dl Aspartate Amino Transf (AST/SGOT) 24 15-37 U/L Alanine Aminotransferase (ALT/SGPT) 20 12-78 U/L Alkaline Phosphatase 99 45-117 U/L Total Protein 8.5 6.4-8.2 gm/dl Albumin 3.6 3.4-5.0 gm/dl Lipase 137 73-393 U/L Bedside Lactic Acid Venous 1.35 0.90-1.70 mmol/L Microbiology Results 09/05/17 Blood Culture, Received Pending 09/05/17 Blood Culture, Received Pending Diagnostic Radiology (From ED visit on 09/03) LEFT LOWER EXTREMITY VENOUS DOPPLER CLINICAL HISTORY: Left leg swelling. COMPARISON STUDY: Left lower extremity venous Doppler Feb 24 2017. TECHNIQUE: Sonography of the deep venous system of the left lower extremity was performed. Compression and augmentation were evaluated. FINDINGS: The left common femoral, superficial femoral and popliteal veins were compressible. Augmentation was normal. Flow was shown within the deep calf vessels. Subcutaneous edema of the left calf was noted. IMPRESSION: No evidence of deep venous thrombus within the left lower extremity. Impression Assessment and Plan 87 yo F, bilateral cellulitis, failed outpatient tx w/Keflex Bilateral cellulitis, with failure of outpatient tx - Received Vanc and Zosyn in ED, will continue for now and narrow tomorrow - Blood cx obtained in ED - Elevate legs - Wound care consult for open areas Hyperlipidemia - Continue Zetia Hypothyroidism - Continue Synthroid VTE: Heparin Dispo: Med/Surg Code status: Full Resident Physician Supervision Note: Pt seen/evaluated independently. I discussed the case with the resident and agree with the findings and plan as documented in the note. Any exceptions or clarifications are listed here: 87 y/o F Hx HPL, hypothyroidism - presented with cellulitis to ER 2 days prior - she was D/Cd with reasonable outpt treatment but has not responded and her cellulitis appears severe currently - she does not report fevers/rigors OE AAO x 3 S1,2 R slight murmur CTAB NT, ND Extensive erythema and warmth of LE B/L above knees P: Placed on ceftriaxone and Vanc pending culture results Cont Synthroid, Zetia Documented By: Wayne Mtz Level of Care Med/Surg Resuscitation Status FULL RESUSCITATION VTE Prophylaxis VTE Risk Assessment Done? Y/N: Yes Risk Level: Moderate Given or contraindicated: Unfractionated heparin SQ Resident Tracking Resident Involvement: Resident Care Provided Care Provided: Adult Hospital Medicine
[2017-09-05] MEDS ORDERED: PATIENT'S HEIGHT AND/OR WEIGHT NEEDED SCH (21:45)
[2017-09-05] MEDS ORDERED: VANCOMYCIN CONSULT ACTIVE PRN (21:45)
[2017-09-05] MEDS ORDERED: CEFEPIME CONSULT ACTIVE PRN ×2 (21:45)
[2017-09-05 23:05] VITALS: BP 146/85; TEMP 36.9; Ht 165.1 cm; Wt 77.5 kg
[2017-09-05 23:24] VITALS: BP 146/85; PULSE 106; TEMP 36.9; O2SAT 94
[2017-09-06] MEDS: VESICARE~ORDER AWAITING ACTION SCH ×4 (00:02→15:44)
[2017-09-06] MEDS ORDERED: PNEUMOCOCCAL POLYSACCHARIDES 25 MCG/0.5 ML VIAL/SYR IM. ONE (00:15)
[2017-09-06] MEDS ORDERED: PNEUMOCOCCAL ADMINISTRATION CHARGE ONE (00:15)
[2017-09-06] MEDS ORDERED: INFLUENZA ADMINISTRATION CHARGE ONE (01:00)
[2017-09-06] MEDS ORDERED: INFLUENZA VACCINE HIGH DOSE 65+ 0.5 ML SYR IM. ONE (01:00)
[2017-09-06 06:02] LABS: CREATININE 0.59 mg/dl (0.60-1.20)
[2017-09-06] MEDS: LEVOTHYROXINE 100 MCG TAB PO SCH (06:35)
--- NOTE | 2017-09-06 06:52 | Pharmacy Progress Note ---
Pharmacy Abx Initial Consult Date of Service Sep 06, 2017. Pharmacy Dosing Scope Date of Consult: 09/05/17 Consultation requested by: Dr. Crane Pharmacy is consulted to continue Vancomycin and Cefepime IV dosing therapy started in ED, order appropriate labs and adjust drug dose/frequency. Subjective The patient is a 87 year old female admitted on Sep 05, 2017 at 20:53 with worsening bilateral lower extremity cellulitis that has failed outpatient Keflex. Objective Height (Feet): 5 Height (Inches): 5.00 Weight (Kilograms): 77.500 Vital Signs (Past 12Hrs) Vital Signs Past 12 Hours Date Time Temp Pulse Resp B/P (MAP) Pulse Ox O2 Delivery O2 Flow Rate FiO2 09/05/17 23:24 36.9 106 18 146/85 (105) 94 Room Air 09/05/17 23:05 36.9 18 146/85 Room Air 09/05/17 21:06 103 19 157/90 96 09/05/17 19:01 36.2 69 21 134/64 97 Room Air Lab Results (24Hrs) Laboratory Tests (24 Hours) Test 09/05/17 19:42 White Blood Count 9.62 K/uL (4.8-10.8) Red Blood Count 4.53 M/uL (4.2-5.4) Hemoglobin 14.1 g/dL (12.0-16.0) Hematocrit 42.6 % (37-47) Mean Corpuscular Volume 94.0 fL (80-100) Mean Corpuscular Hemoglobin 31.1 pg (25-34) Mean Corpuscular Hemoglobin Concent 33.1 g/dl (32-36) Platelet Count 231 K/uL (130-400) Mean Platelet Volume 11.8 fL (7.4-10.4) H Neutrophils (%) (Auto) 73.9 % Lymphocytes (%) (Auto) 10.3 % Monocytes (%) (Auto) 9.6 % Eosinophils (%) (Auto) 5.6 % Basophils (%) (Auto) 0.3 % Neutrophils # (Auto) 7.11 K/uL (1.4-6.5) H Lymphocytes # (Auto) 0.99 K/uL (1.2-3.4) L Monocytes # (Auto) 0.92 K/uL (0.11-0.59) H Eosinophils # (Auto) 0.54 K/uL (0-0.5) H Basophils # (Auto) 0.03 K/uL (0-0.2) Micro Results Date/Time Source Procedure Growth Status 09/05/17 19:42 Blood Blood Culture Pending Received 09/05/17 19:42 Blood Blood Culture Pending Received Risk Factors for Resistance * Antimicrobial use within the last 90 days: Keflex Assessment & Plan Assessment 87 year old female with lower extremity cellulitis being treated with Cefepime and Vancomycin Plan Vancomcyin for treatment of Cellulitis Vancomycin IV * Loading dose: 2000 mg in ED (26 mg/kg) * Maintenance dose: 1000mg IV (13 mg/kg) every 12 hours * Goal trough level: 15 to 20 mcg/mL * Trough level ordered prior to 1200 dose on 09/08/17 Cefepime IV 2gm IV q12h for est crcl>60ml/min Pharmacy will continue to follow and will adjust dose/frequency as necessary. Thank you.
[2017-09-06 07:21] VITALS: BP 151/91; PULSE 59; TEMP 36.8; O2SAT 93
[2017-09-06] MEDS ORDERED: CEFEPIME IV 2,000 MG in SYRINGE 7.5 ML IV SCH ×2 (08:00→20:00)
[2017-09-06] MEDS: EZETIMIBE 10MG TAB PO SCH (08:55)
[2017-09-06] MEDS: HEPARIN SOD 5000 UNIT/0.5 ML CARP SQ SCH ×2 (08:59→21:31)
--- NOTE | 2017-09-06 09:28 | Family Medicine Progress Note ---
Progress Note Date of Service Sep 06, 2017. Subjective Pt evaluation today including: conversation w/ patient, physical exam, chart review, lab review Pain: says legs are a little sore Voiding: no voiding problems Found pt resting comfortably, says her left leg feels a little sore but otherwise denies any acute pains or concerns. Constitutional: No fever, No chills Respiratory: No cough, No shortness of breath Cardiovascular: + edema, No chest pain Abdomen: No nausea, No vomiting Female : No dysuria Skin: + rash, + color change Medications Current Inpatient Medications Medications (Trade) Dose Ordered Sig/Anselmo Route Start Time Stop Time Status Last Admin Dose Admin Acetaminophen (Tylenol Tab) 650 mg Q4H PRN PO 09/05/17 21:00 10/05/17 20:59 Al Hydrox/Mg Hydrox/Simethicone (Maalox Max Susp) 15 ml Q4H PRN PO 09/05/17 21:00 10/05/17 20:59 Magnesium Hydroxide (Milk Of Magnesia Susp) 30 ml Q6H PRN PO 09/05/17 21:00 10/05/17 20:59 Polyethylene (Miralax Powder Packet) 17 gm DAILY PRN PO 09/05/17 21:00 10/05/17 20:59 Ondansetron HCl (Zofran Inj) 4 mg Q6H PRN IV 09/05/17 21:00 10/05/17 20:59 Heparin Sodium (Porcine) (Heparin Sq 5000 Unit/0.5ml) 5,000 unit Q12H SQ 09/06/17 09:00 10/06/17 08:59 09/06/17 08:59 5,000 UNIT EZETIMIBE (Zetia Tab) 10 mg DAILY PO 09/06/17 08:00 10/06/17 08:59 09/06/17 08:55 10 MG Levothyroxine Sodium (Synthroid Tab) 100 mcg DAILYBB PO 09/06/17 06:30 10/06/17 06:29 09/06/17 06:35 100 MCG Miscellaneous Information (Order Awaiting Action) 1 ea QS N/A 09/05/17 22:00 10/05/17 21:59 Vancomycin HCl 1000 mg/Sodium Chloride 270 ml @ 125 mls/hr Q12H IV 09/06/17 12:00 09/16/17 11:59 Cefepime HCl (Consult) 1 ea UD PRN N/A 09/05/17 21:45 10/05/17 21:44 Vancomycin HCl (Consult) 1 ea UD PRN N/A 09/05/17 21:45 10/05/17 21:44 Cefepime HCl 2000 mg/Syringe 20 ml @ 4 mls/min Q12H IV 09/06/17 08:00 09/16/17 07:59 09/06/17 08:54 4 MLS/MIN Objective Vital Signs Date Time Temp Pulse Resp B/P (MAP) Pulse Ox O2 Delivery O2 Flow Rate FiO2 09/06/17 07:21 36.8 59 20 151/91 (111) 93 Room Air 09/05/17 23:24 36.9 106 18 146/85 (105) 94 Room Air 09/05/17 23:05 36.9 18 146/85 Room Air 09/05/17 21:06 103 19 157/90 96 09/05/17 19:01 36.2 69 21 134/64 97 Room Air Physical Exam General Appearance: WD/WN, no apparent distress Respiratory/Chest: lungs clear, normal breath sounds, no respiratory distress Cardiovascular: regular rate, rhythm, no murmur Abdomen: non tender, soft Extremities: + calf tenderness (over cellulitic areas), + pedal edema, + swelling Skin: + rash (dark red erythema up to mid-shins (B). ), + pertinent finding ( small circular lesions/ulcerations sporatically superior to cellulitis) Laboratory Results 09/05/17 19:42 Red Blood Count 4.53, Mean Corpuscular Volume 94.0, Mean Corpuscular Hemoglobin 31.1, Mean Corpuscular Hemoglobin Concent 33.1, Mean Platelet Volume 11.8, Neutrophils (%) (Auto) 73.9, Lymphocytes (%) (Auto) 10.3, Monocytes (%) (Auto) 9.6, Eosinophils (%) (Auto) 5.6, Basophils (%) (Auto) 0.3, Neutrophils # (Auto) 7.11, Lymphocytes # (Auto) 0.99, Monocytes # (Auto) 0.92, Eosinophils # (Auto) 0.54, Basophils # (Auto) 0.03 09/05/17 19:42 09/06/17 05:23 Test 11/24/17 19:42 09/05/17 19:45 09/06/17 05:23 White Blood Count 9.62 K/uL (4.8-10.8) Red Blood Count 4.53 M/uL (4.2-5.4) Hemoglobin 14.1 g/dL (12.0-16.0) Hematocrit 42.6 % (37-47) Mean Corpuscular Volume 94.0 fL (80-100) Mean Corpuscular Hemoglobin 31.1 pg (25-34) Mean Corpuscular Hemoglobin Concent 33.1 g/dl (32-36) Platelet Count 231 K/uL (130-400) Mean Platelet Volume 11.8 fL (7.4-10.4) Neutrophils (%) (Auto) 73.9 % Lymphocytes (%) (Auto) 10.3 % Monocytes (%) (Auto) 9.6 % Eosinophils (%) (Auto) 5.6 % Basophils (%) (Auto) 0.3 % Neutrophils # (Auto) 7.11 K/uL (1.4-6.5) Lymphocytes # (Auto) 0.99 K/uL (1.2-3.4) Monocytes # (Auto) 0.92 K/uL (0.11-0.59) Eosinophils # (Auto) 0.54 K/uL (0-0.5) Basophils # (Auto) 0.03 K/uL (0-0.2) RDW Standard Deviation 48.8 fL (36.4-46.3) RDW Coefficient of Variation 14.3 % (11.5-14.5) Immature Granulocyte % (Auto) 0.3 % Immature Granulocyte # (Auto) 0.03 K/uL (0.00-0.02) Red Blood Cell Morphology Unremarkable Prothrombin Time 10.6 SECONDS (9.0-12.0) Prothromb Time International Ratio 1.0 (0.9-1.1) Activated Partial Thromboplast Time 28.5 SECONDS (21.0-31.0) Partial Thromboplastin Ratio 1.1 Anion Gap 5.0 mmol/L (3-11) BUN/Creatinine Ratio 21.4 (10-20) Calcium Level 9.0 mg/dl (8.5-10.1) Total Bilirubin 0.7 mg/dl (0.2-1) Direct Bilirubin 0.1 mg/dl (0-0.2) Aspartate Amino Transf (AST/SGOT) 24 U/L (15-37) Alanine Aminotransferase (ALT/SGPT) 20 U/L (12-78) Alkaline Phosphatase 99 U/L (45-117) Total Protein 8.5 gm/dl (6.4-8.2) Albumin 3.6 gm/dl (3.4-5.0) Lipase 137 U/L (73-393) Bedside Lactic Acid Venous 1.35 mmol/L (0.90-1.70) Est Creatinine Clear Calc Drug Dose 67.8 ml/min Estimated GFR () 94.8 Estimated GFR (Non- 81.8 Assessment and Plan 87 yo pleasant female with a PMH of chronic venous stasis (but not cellulitis), HTN, hypothyroidism, urinary incontinence, heart disease (hx pacemaker) and hyperlipidemia was admitted from ED on 24Nov with bilateral lower extremity cellulitis after failed outpatient tx w/Keflex. Bilateral cellulitis, with failure of outpatient tx - Pt has hx of chronic venous stasis that has caused some chronic skin changes, making degree of cellulitis assessment more challenging. Pt denies baseline pain. Afebrile thus far, no leukocytosis. - In ED, received Vanc 2 grams IV and Cefepime 2 grams IV. Pt has allergy to sulfa. - Will convert to clindamycin 300 mg PO q6h beginning today. Planned total 10 days of abx. - Blood cx x2 obtained in ED on 24Nov - results pending - Ordered nasal MRSA swab as partial assessment of same on legs. - LLE Doppler on 22Nov was negative for DVT (ordered for left leg swelling). - Elevate legs here - Wound care consult placed for open areas/ulcerations on legs, appreciate recs Hyperlipidemia - Continue Zetia 10 mg daily Hypothyroidism - Continue Synthroid 100 mcg daily Hypertension - No report of home meds for same. - Will monitor while inpt. VTE: Heparin 5000 q12h Dispo: Pending Code status: Full Resident Tracking Resident Involvement: Resident Care Provided Care Provided: Adult Hospital Medicine (inpt rounds)
[2017-09-06] MEDS ORDERED: VANCOMYCIN INJ 1,000 MG in SODIUM CHLORIDE 0.9% 250ML 250 ML IV SCH (12:00)
[2017-09-06 16:04] VITALS: BP 146/72; PULSE 92; TEMP 36.8; O2SAT 94
[2017-09-06] MEDS: CLINDAMYCIN HCL 150 MG CAP PO SCH ×3 (16:59→21:27)
[2017-09-06 23:58] VITALS: BP 114/68; PULSE 83; TEMP 36.8; O2SAT 93
[2017-09-07] MEDS: LEVOTHYROXINE 100 MCG TAB PO SCH (06:39)
[2017-09-07 07:06] LABS: CREATININE 0.62 mg/dl (0.60-1.20)
[2017-09-07 07:18] VITALS: BP 117/68; PULSE 67; TEMP 36.6; O2SAT 96
[2017-09-07] MEDS: VESICARE~ORDER AWAITING ACTION SCH ×2 (08:00)
[2017-09-07] MEDS: EZETIMIBE 10MG TAB PO SCH (08:29)
[2017-09-07] MEDS: CLINDAMYCIN HCL 150 MG CAP PO SCH ×2 (08:29→11:39)
[2017-09-07] MEDS: HEPARIN SOD 5000 UNIT/0.5 ML CARP SQ SCH (08:37)
--- NOTE | 2017-09-07 10:33 | Discharge Instructions ---
Discharge Instructions Date of Service Sep 07, 2017. Admission Reason for Admission: Cellulitis Of Both Lower Extremities Discharge Discharge Diagnosis / Problem: Bilateral lower extremity cellulitis; Chronic venous stasis Discharge Goals Goal(s): Improve disease control, Learn about illness Activity Recommendations Activity Limitations: resume your previous activity . Instructions / Follow-Up Instructions / Follow-Up You were diagnosed with two primary issues: 1) Cellulitis of your legs: This is an infection of the skin, likely due to a bacteria, for which you were started on an antibiotic called Clindamycin. Please take the antibiotic every six hours for a total of 10 days. Last dose should be in the evening on Friday, September 15. 2) Chronic venous stasis in your legs: This is something that has likely been going on for awhile now. It does not look like there have been any acute changes during your hospital stay. This is something you should follow up with your doctor about. The clindamycin antibiotic is a very common antibiotic and is rather safe. The primary thing you have to watch for is diarrhea. All antibiotics increase the chances of loose stools for a few days even after stopping the medicine. However, if you were to develop any abdominal pain, fevers, or blood in your stools you should be seen by your doctor (or in an emergency department) that same day. Please call your doctor's office on Friday and see if you can get a routine follow up with them for around September 15 to make sure that your cellulitis has resolved. See them sooner if you have any concerns about your health. You can also go to the emergency department if you have any immediate concerns such as severe pain, inability to walk, high fevers, or if you cannot reach your doctor in a timely manner. Current Hospital Diet Patient's current hospital diet: Regular Diet Discharge Diet Recommended Diet: Regular Diet Pending Studies Studies pending at discharge: yes List of pending studies: Final results of blood cultures (no growth as of ) Medical Emergencies . Who to Call and When: Medical Emergencies: If at any time you feel your situation is an emergency, please call 911 immediately. . Non-Emergent Contact Non-Emergency issues call your: Primary Care Provider . . "Provider Documentation" section prepared by Antoni Snyder. . VTE Core Measure Inpt VTE Proph given/why not?: Unfractionated heparin SQ Resident Tracking Resident Involvement: Resident Care Provided Care Provided: Adult [facility] Medicine (in care)
[2017-09-07] MEDS ORDERED: CLC/300 PO (10:37)
--- NOTE | 2017-09-07 10:52 | Discharge Summary ---
Discharge Summary Date of Service Sep 07, 2017. Discharge Summary Admission Date: Sep 05, 2017 at 20:53 Discharge Date: Sep 07, 2017 Discharge Disposition: Home Principal Diagnosis: Bilateral lower extremity cellulitis Problems/Secondary Diagnoses: Bilateral lower extremity venous stasis Procedures: None. Consultations: None Medication Reconciliation New Medications: Clindamycin HCl (Clindamycin HCl) 300 Mg Cap 1 CAP PO Q6H for 9 Days, #36 CAP Continued Medications: Ezetimibe (Zetia) 10 Mg Tab 10 MG PO DAILY, TAB Levothyroxine Sodium (Levothyroxine Sodium) 100 Mcg Tab 100 MCG PO DAILY Solifenacin (Vesicare) 10 Mg Tab 10 MG PO DAILY, TAB Discontinued Medications: Cephalexin Monohydrate (Keflex) 500 Mg Cap 500 MG PO TID for 10 Days, #30 CAP Discharge Exam Review of Systems: Constitutional: No fever, No chills Respiratory: No cough, No shortness of breath Cardiovascular: + edema, No chest pain Abdomen: No nausea, No vomiting, No diarrhea Integumentary: + rash, + new/changing skin lesions Physical Exam: General Appearance: WD/WN, no apparent distress Neck: supple Respiratory/Chest: lungs clear, normal breath sounds, no respiratory distress Cardiovascular: regular rate, rhythm Abdomen / GI: normal bowel sounds, non tender, soft Extremities: + calf tenderness (mildly posterior left calf), + swelling, + pertinent finding (BLE from mid-hall distally erythema, edema, and underlying chronic venous changes) Skin: warm/dry (erythematous portions of calves warm to touch), + rash (as noted above) Hospital Course History and Physical Date & Time of Service: Sep 05, 2017 at 20:53 Chief Complaint: Leg Infection,Tenderness,Swelling,Red Sores Primary Care Physician: Devin Jackson M.D. History of Present Illness Source: patient, family Preston is an 87 year old female who presents with her daughter for evaluation of cellulitis. She came to the ED on Friday with early bilateral cellulitis, was started on Keflex, and had US to rule out a DVT, and was sent home. She felt ok yesterday and enjoyed her Thanksgiving, but frequently had chills. She denied fevers. She noticed the redness spread up the leg higher, and so came back to the ED today. There are some areas with bloody drainage on the L leg as well. She has chronic venous stasis but has never had cellulitis. She is otherwise healthy and lives at home with her daughter in [place]. She denies chest pain, shortness of breath, itch to the legs, pain in the legs, or other new symptoms compared to before apart from spreading of the redness up her legs. She normally ambulates with a cane but has been on bedrest since the cellulitis developed. Discharge summary on [id number] 87 yo female with a PMH of chronic venous stasis (but not cellulitis), HTN, hypothyroidism, urinary incontinence, heart disease (hx pacemaker) and hyperlipidemia was admitted from ED on with bilateral lower extremity cellulitis after failed outpatient tx w/Keflex. Bilateral lower extremity cellulitis, with failure of outpatient treatment - Pt has hx of chronic venous stasis that has caused some chronic skin changes, making assessment of degree of cellulitis assessment more challenging. She denied any baseline pain throughout her hospitalization. Afebrile, no leukocytosis as well. In the ED, she received Vancomycin 2 grams IV and Cefepime 2 grams IV (she has an allergy to sulfa). She was converted to cindamycin 300 mg PO q6h beginning with planned total 10 days of antibiotics coverage. - Results from blood cultures x 2 on were no growth to date on day of discharge. - Nasal MRSA swab was negative. Hyperlipidemia - Continued home zetia as inpatient. No acute changes. Hypothyroidism - Continue home Synthroid as inpatient. No acute changes. Hypertension - Noted to be elevated as high as 151/91 but resolved on re-checks. No report of home meds for same. - Recommended routine PCM follow up for same. - Will monitor while inpt. As inpatient: VTE: Heparin 5000 q12h. Stop anticoagulation on discharge. Dispo: Home Code status: Full Total Time Spent: Less than 30 minutes This includes examination of the patient, discharge planning, medication reconciliation, and communication with other providers. Discharge Instructions Please refer to the electronic Patient Visit Report (Discharge Instructions) for additional information. Follow-Up With PCM. Additional Copies To Ashwin Jackson M.D.
[2017-09-07 10:59] VITALS: BP 117/68; PULSE 67; TEMP 36.6; O2SAT 96
[2017-09-08] MEDS ORDERED: VANCOMYCIN TROUGH ONE (11:30)
== END 2017-09-07 15:28 | disposition home or self-care (01) | DRG 603 ==
LOC: C.EDB 18:58 → C.4E 20:53 → ENRESERV 21:00
PROVIDERS: ADMIT Internal Medicine; ATTEND Hospitalist
DX: L03.116 Cellulitis of left lower limb (principal); L03.115 Cellulitis of right lower limb; E78.5 Hyperlipidemia, unspecified; I11.9 Hypertensive heart disease without heart failure; E03.9 Hypothyroidism, unspecified; Z95.0 Presence of cardiac pacemaker; Z91.19 Patient's noncompliance with other medical treatment and regimen; Z80.9 Family history of malignant neoplasm, unspecified; Z79.899 Other long term (current) drug therapy

== ENCOUNTER 2017-10-22 21:21 | Inpatient (IN) | payer OTHER, BC ==
[~2017-10-22] VITALS: Ht 165.1 cm; Wt 73.9 kg
[~2017-10-22 21:21] MED LIST changes: -CEPH500C PO
[2017-10-22] MEDS ORDERED: ACETAMINOPHEN 500 MG TAB PO STA (22:00)
[2017-10-22] MEDS ORDERED: SODIUM CHLORIDE 0.9% 500ML 500 ML IV STA (22:00)
[2017-10-22 23:06] LABS: BASO % 0.2 %; BASO ABS # 0.02 K/uL (0-0.2); EOS % 0.8 %; EOS ABS # 0.09 K/uL (0-0.5); HEMATOCRIT 41.4 % (37-47); HEMOGLOBIN 13.3 g/dL (12.0-16.0); IG# 0.04 K/uL (0.00-0.02); LYMPH ABS # 1.24 K/uL (1.2-3.4); MEAN CELL VOLUME 92.6 fL (80-100); MEAN CORPUSCULAR HEMOGLOBIN 29.8 pg (25-34); MEAN CORPUSCULAR HGB CONC 32.1 g/dl (32-36); MEAN PLATELET VOLUME 10.7 fL (7.4-10.4); MONO % 7.6 %; MONO ABS # 0.86 K/uL (0.11-0.59); NEUT ABS # 9.03 K/uL (1.4-6.5); PLATELET COUNT 238 K/uL (130-400); RED CELL DISTRIBUTION WIDTH CV 14.5 % (11.5-14.5); RED CELL DISTRIBUTION WIDTH SD 49.2 fL (36.4-46.3); WHITE BLOOD COUNT 11.28 K/uL (4.8-10.8)
[2017-10-22 23:26] LABS: ALBUMIN 3.3 gm/dl (3.4-5.0); ALT/SGPT 17 U/L (12-78); AST/SGOT 18 U/L (15-37); BLOOD UREA NITROGEN 17 mg/dl (7-18); CALCIUM 8.6 mg/dl (8.5-10.1); CARBON DIOXIDE 29 mmol/L (21-32); CREATININE 0.74 mg/dl (0.60-1.20); GLUCOSE 109 mg/dl (70-99); POTASSIUM 3.7 mmol/L (3.5-5.1); SODIUM 142 mmol/L (136-145)
[2017-10-22 23:31] LABS: ALKALINE PHOSPHATASE 68 U/L (45-117); CKMB 1.4 ng/ml (0.5-3.6); TOTAL PROTEIN 7.2 gm/dl (6.4-8.2)
[2017-10-23] VITALS (10 sets, daily range): BP systolic 126–147; BP diastolic 65–82; PULSE 70–79; TEMP 36.3–36.8; O2SAT 93–96; Ht 165.1 cm; Wt 73.9 kg
[2017-10-23] MEDS ORDERED: CEFTRIAXONE SOD INJ 1 GM ADDVIAL IV STA (00:35)
--- NOTE | 2017-10-23 01:22 | EMERGENCY ROOM VISIT NOTE ---
ED Visit Note First contact with patient: 21:42 I have personally seen and evaluated the patient with the PA. I agree with the diagnosis and management decisions and have been personally involved in the case. Please see Tita Silverio PA-C's notes for further details of the history, physical and visit.
[2017-10-23] MEDS ORDERED: ACETAMINOPHEN 325 MG TAB PO PRN (01:30)
[2017-10-23] MEDS: SODIUM CHLORIDE 0.9% 1000ML 1,000 ML IV SCH ×2 (03:08→16:15)
[2017-10-23] MEDS: KETOROLAC TROMETHAMINE 15 MG/ML VIAL IV PRN ×2 (03:08→14:08)
--- NOTE | 2017-10-23 04:09 | EMERGENCY ROOM VISIT NOTE ---
History First contact with patient: 21:42 Chief Complaint: FALL Stated Complaint: FALL, FRACTURE OF HUMERAL HEAD, RIGHT, CLOSED History of Present Illness The patient is a 87 year old female who presents to the Emergency Room with complaints of fall from unknown mechanism tonight. Patient states she was walking in the living room and fell. She is not sure if she tripped and fell or got weak and fell. Patient laid on the ground for a few hours until her daughter came home. No more than 4 hours. She states she could not get up. She ambulates with a walker and lives at home with her daughter. Patient complains of right shoulder and right knee pain. Pain currently 4 out of 10 worse with movement and better with rest. It does not radiate. No prior fractures to these areas. Patient denies headache, neck pain, back pain, chest pain, dyspnea, abdominal pain, numbness, tingling or any other medical complaints. Review of Systems See HPI for pertinent positives & negatives. A total of 10 systems reviewed and were otherwise negative. Past Medical/Surgical History Medical Problems: (1) Cellulitis of both lower extremities (2) Fall (3) Fracture of humeral head, right, closed (4) H/O cardiac pacemaker (5) Heart disease (6) HTN (hypertension) (7) HYPOTHYROIDISM NOS (8) Urinary problem Family History Cancer Social History Smoking Status: Never Smoker Alcohol Use: none Marital Status: Housing Status: lives with family Occupation Status: retired Current/Historical Medications Scheduled Ezetimibe (Zetia), 10 MG PO DAILY Levothyroxine Sodium (Levothyroxine Sodium), 100 MCG PO DAILY Solifenacin (Vesicare), 10 MG PO DAILY Physical Exam Vital Signs Date Time Temp Pulse Resp B/P (MAP) Pulse Ox O2 Delivery O2 Flow Rate FiO2 10/22/17 23:09 88 16 164/87 10/22/17 21:51 76 10/22/17 21:34 36.8 86 20 161/83 95 Room Air Physical Exam PHYSICAL EXAM: VITALS: Vitals are noted on the nurse's note and reviewed by myself. Vital signs hypertensive GENERAL: Elderly female, in no acute distress, nondiaphoretic, well-developed well-nourished. SKIN: The skin was without obvious lacerations or abrasions. Capillary reflex less than 2 seconds. HEAD: Normocephalic atraumatic. EARS: External auditory canals clear, tympanic membranes pearly anthony without erythema or effusion bilaterally. No hemotympanums. No pollock sign. No mastoid tenderness. EYES: Pupils equal round and reactive to light and accommodation. Conjunctivae without injection, sclerae without icterus. Extraocular movements intact. NOSE: Patent, turbinates without inflammation or discharge. No sinus tenderness. No septal hematoma or bleeding. MOUTH: Mucous membranes mildly dry. Pharynx without erythema or exudate. Uvula midline. Airway patent. Tongue does not deviate. NECK: Supple without nuchal rigidity. Cervical spine is nontender. Full range of motion of the neck without tenderness. No JVD. HEART: Regular rate and rhythm LUNGS: Clear to auscultation bilaterally without wheezes, rales or rhonchi. No dullness to percussion. No retractions or accessory muscle use. No chest wall tenderness. ABDOMEN: Positive bowel sounds x 4. Normal tympanic percussion. Soft, nontender, without masses or organomegaly. No guarding or rebound tenderness. MUSCULOSKELETAL: No tenderness of the thoracic or lumbar spine. No tenderness with pelvic rocking. Right shoulder tender to palpation and unable to assess range of motion secondary to pain. Right knee tender to palpation with no obvious deformity Full range of motion without tenderness to palpation in all other extremities. Peripheral pulses 2+. NEURO: Patient was alert and oriented to person place and time. Normal sensation to light and sharp touch. No focal neurological deficits. Medical Decision & Procedures Laboratory Results 10/22/17 22:45 Red Blood Count 4.47, Mean Corpuscular Volume 92.6, Mean Corpuscular Hemoglobin 29.8, Mean Corpuscular Hemoglobin Concent 32.1, Mean Platelet Volume 10.7, Neutrophils (%) (Auto) 80.0, Lymphocytes (%) (Auto) 11.0, Monocytes (%) (Auto) 7.6, Eosinophils (%) (Auto) 0.8, Basophils (%) (Auto) 0.2, Neutrophils # (Auto) 9.03, Lymphocytes # (Auto) 1.24, Monocytes # (Auto) 0.86, Eosinophils # (Auto) 0.09, Basophils # (Auto) 0.02 10/22/17 22:45 Test 10/22/17 22:40 10/22/17 22:45 10/22/17 22:58 Urine Color YELLOW Urine Appearance CLEAR (CLEAR) Urine pH >= 9.0 (4.5-7.5) Urine Specific [place] 1.011 (1.000-1.030) Urine Protein NEG (NEG) Urine Glucose (UA) NEG (NEG) Urine Ketones NEG (NEG) Urine Occult Blood NEG (NEG) Urine Nitrite POS (NEG) Urine Bilirubin NEG (NEG) Urine Urobilinogen NEG (NEG) Urine Leukocyte Esterase SMALL (NEG) Urine WBC (Auto) 10-30 /hpf (0-5) Urine RBC (Auto) 0-4 /hpf (0-4) Urine Hyaline Casts (Auto) 0 /lpf (0-5) Urine Epithelial Cells (Auto) >30 /lpf (0-5) Urine Bacteria (Auto) 2+ (NEG) White Blood Count 11.28 K/uL (4.8-10.8) Red Blood Count 4.47 M/uL (4.2-5.4) Hemoglobin 13.3 g/dL (12.0-16.0) Hematocrit 41.4 % (37-47) Mean Corpuscular Volume 92.6 fL (80-100) Mean Corpuscular Hemoglobin 29.8 pg (25-34) Mean Corpuscular Hemoglobin Concent 32.1 g/dl (32-36) Platelet Count 238 K/uL (130-400) Mean Platelet Volume 10.7 fL (7.4-10.4) Neutrophils (%) (Auto) 80.0 % Lymphocytes (%) (Auto) 11.0 % Monocytes (%) (Auto) 7.6 % Eosinophils (%) (Auto) 0.8 % Basophils (%) (Auto) 0.2 % Neutrophils # (Auto) 9.03 K/uL (1.4-6.5) Lymphocytes # (Auto) 1.24 K/uL (1.2-3.4) Monocytes # (Auto) 0.86 K/uL (0.11-0.59) Eosinophils # (Auto) 0.09 K/uL (0-0.5) Basophils # (Auto) 0.02 K/uL (0-0.2) RDW Standard Deviation 49.2 fL (36.4-46.3) RDW Coefficient of Variation 14.5 % (11.5-14.5) Immature Granulocyte % (Auto) 0.4 % Immature Granulocyte # (Auto) 0.04 K/uL (0.00-0.02) Anion Gap 7.0 mmol/L (3-11) Est Creatinine Clear Calc Drug Dose 53.3 ml/min Estimated GFR () 83.8 Estimated GFR (Non- 72.3 BUN/Creatinine Ratio 22.9 (10-20) Calcium Level 8.6 mg/dl (8.5-10.1) Total Bilirubin 0.3 mg/dl (0.2-1) Direct Bilirubin < 0.1 mg/dl (0-0.2) Aspartate Amino Transf (AST/SGOT) 18 U/L (15-37) Alanine Aminotransferase (ALT/SGPT) 17 U/L (12-78) Alkaline Phosphatase 68 U/L (45-117) Total Creatine Kinase 80 U/L (26-192) Creatine Kinase MB 1.4 ng/ml (0.5-3.6) Creatine Kinase MB Ratio 1.7 (0-3.0) Troponin I 0.027 ng/ml (0-0.045) Total Protein 7.2 gm/dl (6.4-8.2) Albumin 3.3 gm/dl (3.4-5.0) Bedside Troponin I < 0.030 ng/ml (0-0.045) Medications Administered Medications (Trade) Dose Ordered Sig/Anselmo Route Start Time Stop Time Status Last Admin Dose Admin Sodium Chloride 500 ml @ 999 mls/hr Q31M STAT IV 10/22/17 22:00 10/22/17 22:30 DC 10/22/17 22:00 999 MLS/HR Ceftriaxone Sodium (Rocephin Inj) 1 gm NOW STAT IV 10/23/17 00:35 10/23/17 00:37 DC 10/23/17 01:00 1 GM Ketorolac Tromethamine (Toradol Inj) 15 mg Q6H PRN IV 10/23/17 01:30 10/28/17 01:29 10/23/17 03:08 15 MG ED Course Prior records/ancillary studies reviewed and summarized above. Nursing notes reviewed. Additional history obtained from family. The patient's history was concerning for fall with right shoulder and right knee pain. Differential diagnosis: Etiologies such as fracture, dislocation, contusion, metabolic, infection, hypo/ hyperglycemia, electrolyte abnormalities, cardiac sources, intracerebral event, toxicologic, neurologic, as well as others were entertained. Physical examination: As above. ER treatment provided: IV Lock By mouth fluids On reassessment the patient felt better. Diagnostics interpretation by me: ECG: Ventricular paced rhythm with no acute ST-T wave changes, rate of 85. Impression ventricular paced rhythm interpreted by myself The labs revealed stable H&H. Urine concerning for possible infection and sent for culture. Imaging studies: Head and cervical CT and negative for fracture per radiology Shoulder x-ray concerning for fracture and possible dislocation so CT imaging was ordered and concerning for comminuted humeral head fracture Knee and humeral x-ray negative for fracture per my interpretation Consultation: A consultation was placed with the hospitalist, Dr. Zhang. The case was discussed and diagnostics were reviewed. The patient was evaluated in the ER for further treatment. Exam and history seem consistent with fall with unclear etiology and with right humeral head fracture and possible UTI. Patient was placed in a sling. Neurovascular status is rechecked after placement and is intact. She was started on antibiotics for possible UTI and a urine culture was sent. Patient did not have acute abdomen on exam. Unchanged EKG. No other acute findings were noted. Patient did initially become extremely upset when a male nurse came in to the room to help assist with the bedpan. She made it clear that she wanted no males near her and would prefer a female nurse to attend her personal needs. I informed my nurse fur dressing supervisor, Rhoda. I did apologize for the male nurse being present during her exam. Patient and family were were agreeable to this and seemed pleased with this. Patient was reassessed multiple times. She was tolerating fluids and applesauce without difficulties. She will be evaluated by medicine for admission. Patient lives at home and ambulates with a cane. Her daughter does not feel comfortable caring for her by herself as she does have to leave the house for a few hours each day for work. By the evaluation outlined above emergent etiologies such as electrolyte abnormalities, cardiac sources, intracerebral event, toxologic, neurologic, abnormalities blood glucose, metabolic, as well as others were deemed relatively unlikely. The pt informed about the findings as listed above. All questions were answered and pleased with the treatment. Case reviewed with my attending The chart was completed utilizing [employer] Speech voice recognition software. Grammatical errors, random word insertions, pronoun errors, and incomplete sentences are an occassional consequence of this system due to software limitations, ambient noise, and hardware issues. Any formal questions or concerns about the content, text, or information contained within the body of this dictation should be directly addressed to the physician pharmaceutical assistant for clarification. . Medical Decision As above Head Trauma GCS Score: 15 Medication Reconcilliation Current Medication List: was personally reviewed by me Blood Pressure Screening Patient's blood pressure: Elevated blood pressure Impression Primary Impression: Fracture of humeral head, right, closed Additional Impressions: UTI (urinary tract infection) Fall Knee injury Departure Information Dispostion Still a Patient Condition FAIR Referrals China Goncalves D.O. (PCP) Forms HOME CARE DOCUMENTATION FORM, IMPORTANT VISIT INFORMATION Patient Instructions Replaced By [facility] Problem Qualifiers Primary Impression: Fracture of humeral head, right, closed Encounter type: initial encounter Qualified Codes: S42.291A - Other displaced fracture of upper end of right humerus, initial encounter for closed fracture
--- NOTE | 2017-10-23 05:46 | History and Physical ---
History & Physical Date & Time of Service: Oct 23, 2017 at 05:44 Chief Complaint: Fall, Fracture Of Humeral Head, Right, Closed Primary Care Physician: hCina Goncalves D.O. History of Present Illness This is a 87 year old female patient who fell. Based on review of the ED notes and conversation with the patient, it is unclear what had preceded the fall whether this was mechanical fall vs other reasons for falling down on her face. Patient does not know whether she lost consciousness of not. Head and cervical CT and negative for fracture per radiology. CT of right upper extremity with comminuted fracture of right femoral head/neck. Past Medical/Surgical History Medical Problems: (1) H/O cardiac pacemaker Status: Resolved (2) Heart disease Status: Chronic (3) HTN (hypertension) Status: Chronic (4) HYPOTHYROIDISM NOS Status: Chronic (5) Urinary problem Status: Chronic Family History Cancer Social History Smoking Status: Never Smoker Marital Status: Occupational Status: retired Allergies Coded Allergies: Adhesives (Verified Allergy, Unknown, ., 09/03/17) Morphine (Verified Allergy, Unknown, ., 09/03/17) Sulfa Drugs (Verified Allergy, Unknown, ., 09/03/17) Home Medications Scheduled Ezetimibe (Zetia), 10 MG PO DAILY Levothyroxine Sodium (Levothyroxine Sodium), 100 MCG PO DAILY Solifenacin (Vesicare), 10 MG PO DAILY Review of Systems Constitutional: No fever Eyes: No worsening of vision ENT: No nasal symptoms Respiratory: No cough, No shortness of breath Cardiovascular: No chest pain Abdomen: No pain, No nausea, No vomiting Musculoskeletal: + problem reported (right arm pain) Genitourinary - Female: No dysuria Neurologic: No paralysis, No numbness/tingling Psychiatric: No substance abuse Endocrine: No fatigue Hematologic / Lymphatic: No abnormal bleeding/bruising Integumentary: No rash Physical Exam Vital Signs Date Time Temp Pulse Resp B/P (MAP) Pulse Ox O2 Delivery O2 Flow Rate FiO2 10/23/17 04:00 93 Room Air 10/23/17 03:17 36.7 77 18 143/72 95 Room Air 10/23/17 02:22 131/71 10/22/17 23:09 88 16 164/87 10/22/17 21:51 76 10/22/17 21:34 36.8 86 20 161/83 95 Room Air General Appearance: no apparent distress Head: normocephalic, atraumatic Eyes: normal inspection, EOMI, sclerae normal ENT: normal ENT inspection, hearing grossly normal, pharynx normal Neck: supple, no JVD, trachea midline Respiratory/Chest: chest non-tender, lungs clear, normal breath sounds, no respiratory distress, no accessory muscle use Cardiovascular: regular rate, rhythm, no edema, no JVD Abdomen/GI: normal bowel sounds, non tender, soft Extremities/Musculoskelatal: no calf tenderness, no pedal edema, + pertinent finding (can squeeze with right hand but cannot life right arm) Neurologic/Psych: alert, normal mood/affect, oriented x 3 Skin: normal color, warm/dry, no rash Diagnostics Laboratory Results Results Past 24 Hours Test 10/22/17 22:40 10/22/17 22:45 10/22/17 22:58 Range/Units Urine Color YELLOW Urine Appearance CLEAR CLEAR Urine pH >= 9.0 4.5-7.5 Urine Specific [place] 1.011 1.000-1.030 Urine Protein NEG NEG Urine Glucose (UA) NEG NEG Urine Ketones NEG NEG Urine Occult Blood NEG NEG Urine Nitrite POS NEG Urine Bilirubin NEG NEG Urine Urobilinogen NEG NEG Urine Leukocyte Esterase SMALL NEG Urine WBC (Auto) 10-30 0-5 /hpf Urine RBC (Auto) 0-4 0-4 /hpf Urine Hyaline Casts (Auto) 0 0-5 /lpf Urine Epithelial Cells (Auto) >30 0-5 /lpf Urine Bacteria (Auto) 2+ NEG White Blood Count 11.28 4.8-10.8 K/uL Red Blood Count 4.47 4.2-5.4 M/uL Hemoglobin 13.3 12.0-16.0 g/dL Hematocrit 41.4 37-47 % Mean Corpuscular Volume 92.6 80-100 fL Mean Corpuscular Hemoglobin 29.8 25-34 pg Mean Corpuscular Hemoglobin Concent 32.1 32-36 g/dl Platelet Count 238 130-400 K/uL Mean Platelet Volume 10.7 7.4-10.4 fL Neutrophils (%) (Auto) 80.0 % Lymphocytes (%) (Auto) 11.0 % Monocytes (%) (Auto) 7.6 % Eosinophils (%) (Auto) 0.8 % Basophils (%) (Auto) 0.2 % Neutrophils # (Auto) 9.03 1.4-6.5 K/uL Lymphocytes # (Auto) 1.24 1.2-3.4 K/uL Monocytes # (Auto) 0.86 0.11-0.59 K/uL Eosinophils # (Auto) 0.09 0-0.5 K/uL Basophils # (Auto) 0.02 0-0.2 K/uL RDW Standard Deviation 49.2 36.4-46.3 fL RDW Coefficient of Variation 14.5 11.5-14.5 % Immature Granulocyte % (Auto) 0.4 % Immature Granulocyte # (Auto) 0.04 0.00-0.02 K/uL Sodium Level 142 136-145 mmol/L Potassium Level 3.7 3.5-5.1 mmol/L Chloride Level 106 98-107 mmol/L Carbon Dioxide Level 29 21-32 mmol/L Anion Gap 7.0 3-11 mmol/L Blood Urea Nitrogen 17 7-18 mg/dl Creatinine 0.74 0.60-1.20 mg/dl Est Creatinine Clear Calc Drug Dose 53.3 ml/min Estimated GFR () 83.8 Estimated GFR (Non- 72.3 BUN/Creatinine Ratio 22.9 10-20 Random Glucose 109 70-99 mg/dl Calcium Level 8.6 8.5-10.1 mg/dl Total Bilirubin 0.3 0.2-1 mg/dl Direct Bilirubin < 0.1 0-0.2 mg/dl Aspartate Amino Transf (AST/SGOT) 18 15-37 U/L Alanine Aminotransferase (ALT/SGPT) 17 12-78 U/L Alkaline Phosphatase 68 45-117 U/L Total Creatine Kinase 80 26-192 U/L Creatine Kinase MB 1.4 0.5-3.6 ng/ml Creatine Kinase MB Ratio 1.7 0-3.0 Troponin I 0.027 0-0.045 ng/ml Total Protein 7.2 6.4-8.2 gm/dl Albumin 3.3 3.4-5.0 gm/dl Bedside Troponin I < 0.030 0-0.045 ng/ml Microbiology Results 10/23/17 MRSA DNA Surveillance Screen - Final, Complete Specimen Negative for MRSA by DNA Probe 10/22/17 Urine Culture, Received Pending Impression Assessment and Plan This is a 87 year old female patient who fell. Based on review of the ED notes and conversation with the patient, it is unclear what had preceded the fall whether this was mechanical fall vs other reasons for falling down on her face. Patient does not know whether she lost consciousness of not. Head and cervical CT and negative for fracture per radiology. CT of right upper extremity with comminuted fracture of right femoral head/neck -admission for evaluation whether patient had mechanical fall vs syncope -initial troponin negative -ECG: Ventricular paced rhythm with no acute ST-T wave changes, rate of 85. Impression ventricular paced rhythm -telemetry monitoring if any arrhythmia -orthopedic consult for evaluation of comminuted fracture of right femoral head/ neck -NPO except medications for possible orthopedic surgery -restart home medications of Zetia, Levothyroxine, and Vesicare until after orthopedic evaluation -patient has leukocytosis, lower extremities with bilateral erythema possible cellulitis, UA with bacteria and was given 1 dose of ceftriaxone in the ED, continue ceftriaxone 1 gram IV daily -blood culture, ESR, CRP to be sent -DVT ppx SCD Advanced Directives Existing Living Will: No Existing Power of Test Automation Architect: No VTE Prophylaxis VTE Risk Assessment Done? Y/N: Yes Risk Level: Moderate
[2017-10-23 06:17] LABS: BASO % 0.3 %; BASO ABS # 0.02 K/uL (0-0.2); EOS % 1.3 %; EOS ABS # 0.09 K/uL (0-0.5); HEMATOCRIT 35.7 % (37-47); HEMOGLOBIN 11.5 g/dL (12.0-16.0); IG# 0.01 K/uL (0.00-0.02); LYMPH % 19.9 %; LYMPH ABS # 1.34 K/uL (1.2-3.4); MEAN CORPUSCULAR HEMOGLOBIN 29.9 pg (25-34); MEAN CORPUSCULAR HGB CONC 32.2 g/dl (32-36); MEAN PLATELET VOLUME 10.7 fL (7.4-10.4); MONO % 10.4 %; NEUT ABS # 4.59 K/uL (1.4-6.5); PLATELET COUNT 209 K/uL (130-400); RED CELL DISTRIBUTION WIDTH CV 14.5 % (11.5-14.5); RED CELL DISTRIBUTION WIDTH SD 49.9 fL (36.4-46.3); WHITE BLOOD COUNT 6.75 K/uL (4.8-10.8)
--- NOTE | 2017-10-23 06:35 | DIAGNOSTIC IMAGING REPORT ---
CT HEAD WITHOUT CONTRAST (CT) CLINICAL HISTORY: Head pain status post trauma COMPARISON STUDY: 09/20/2016 TECHNIQUE: Axial CT of the brain is performed from the vertex to the skull base. IV contrast was not administered for this examination. A dose lowering technique was utilized adhering to the principles of ALARA. CT DOSE: 949.66 mGy.cm FINDINGS: No intra or extra-axial mass lesions are visualized. There is no CT evidence of acute cortical infarction. There is no evidence of midline shift. There is no acute hemorrhage. No calvarial fractures are visualized. There are patchy white matter hypodensities likely on a small vessel basis. There is no evidence of pathologic ventricular dilatation. There is no evidence of acute sinusitis There is a right humeral head fracture is visualized on the interventional physician image. IMPRESSION: No acute intracranial findings Electronically signed by: Cirilo Rice M.D. 10/23/2017 6:33 AM Dictated Date/Time: 10/23/2017 6:31 AM
[2017-10-23 06:49] LABS: CALCIUM 8.2 mg/dl (8.5-10.1); CREATININE 0.63 mg/dl (0.60-1.20); POTASSIUM 3.9 mmol/L (3.5-5.1)
[2017-10-23 06:52] LABS: TOTAL PROTEIN 6.5 gm/dl (6.4-8.2)
--- NOTE | 2017-10-23 06:52 | DIAGNOSTIC IMAGING REPORT ---
R SHOULDER MIN 2 VIEWS ROUTINE CLINICAL HISTORY: fall, pain COMPARISON: None. DISCUSSION: There is acute humeral head fracture which is mildly comminuted. There is no dislocation. IMPRESSION: Humeral head fracture. No evidence of dislocation. Electronically signed by: Cirilo Rice M.D. 10/23/2017 6:51 AM Dictated Date/Time: 10/23/2017 6:50 AM
--- NOTE | 2017-10-23 07:01 | DIAGNOSTIC IMAGING REPORT ---
R HUMERUS 5 VIEWS ROUTINE CLINICAL HISTORY: Right humeral pain status post trauma COMPARISON: None. DISCUSSION: There is a humeral head fracture. There is no dislocation. No additional fractures are evident. The examination is limited from a positioning standpoint. IMPRESSION: Humeral head fracture. No dislocation identified. Electronically signed by: Cirilo Rice M.D. 10/23/2017 7:00 AM Dictated Date/Time: 10/23/2017 6:59 AM
--- NOTE | 2017-10-23 07:10 | DIAGNOSTIC IMAGING REPORT ---
RIGHT SHOULDER CT CT DOSE: 766.48 mGy.cm HISTORY: fall, right shoulder dislocation and fracture TECHNIQUE: Multiaxial CT images of the right shoulder were performed and reformatted in the sagittal and coronal plane without the use of contrast. A dose lowering technique was utilized adhering to the principles of ALARA. COMPARISON: Right shoulder 10/22/2017. FINDINGS: Comminuted and slightly displaced fracture involving the lateral aspect of the right humeral humeral head and neck. This demonstrates up to 5 mm of distraction at the greater tuberosity. The scapula and right clavicle appear intact. No dislocation within the right shoulder. Pacemaker wires are noted. Mild soft tissue edema within the right shoulder. Moderate cartilage space narrowing within the right shoulder. A 4 mm indeterminate pulmonary nodule within the right lower lobe. No right-sided pneumothorax. IMPRESSION: Comminuted and slightly displaced fracture involving the lateral aspect of the right humeral head and neck. No dislocation. Electronically signed by: Alberto Baer M.D. 10/23/2017 7:08 AM Dictated Date/Time: 10/23/2017 7:04 AM
--- NOTE | 2017-10-23 07:21 | DIAGNOSTIC IMAGING REPORT ---
RIGHT KNEE 3 VIEWS HISTORY: Right knee pain. fall, pain COMPARISON: None. FINDINGS: There is no fracture or dislocation. Soft tissues are unremarkable. No significant knee effusion. Mild to moderate tricompartmental osteoarthritis. IMPRESSION: No fracture or dislocation within the right knee. Electronically signed by: Alberto Baer M.D. 10/23/2017 7:20 AM Dictated Date/Time: 10/23/2017 7:19 AM
--- NOTE | 2017-10-23 07:21 | DIAGNOSTIC IMAGING REPORT ---
CT SCAN OF THE CERVICAL SPINE CLINICAL HISTORY: Trauma. Fall. COMPARISON STUDY: No priors. TECHNIQUE: CT scan of the cervical spine is performed from the skull base to the upper thoracic spine. Images are reviewed in the axial, sagittal, and coronal planes. IV contrast was not administered for this examination. A dose lowering technique was utilized adhering to the principles of ALARA. FINDINGS: Skeletal structures: The skeletal structures are osteopenic. There is no evidence of fracture or subluxation involving the cervical spine. Vertebral body height is preserved. There is minimal anterolisthesis at C6-C7. Alignment is otherwise maintained. Hyperlordosis is noted. The odontoid process and lateral masses are intact. The atlantoaxial articulation is preserved noting productive degenerative change. The spinous processes appear intact. Small anterior osteophytes are seen throughout. There is mild to moderate multilevel cervical spondylosis. Uncovertebral and facet arthropathy are present several levels and contribute to neural foraminal stenosis. Intervertebral discs: There is moderate to advanced disc space narrowing seen at C3-C4 and C4-C5. Moderate disc space narrowing is seen at C5-C6. Central canal: Posterior disc osteophyte complexes at C3-C4, C4-C5, C5-C6 may contribute to mild acquired compromise of the central canal. Soft tissues: The prevertebral and paraspinous soft tissues are within normal limits. There is atherosclerotic calcification of the carotid bulbs. Calvarium: The visualized calvarium at the skull base appears intact. Brain parenchyma: Partially visualized brain parenchyma the skull base is within normal limits. Sinuses and mastoids: The visualized paranasal sinuses are clear. The mastoid air cells are well pneumatized. Lung apices: Clear as visualized. IMPRESSION: 1. There is no evidence of fracture or subluxation involving the cervical spine. 2. Osteopenia and spondylotic change as above. Electronically signed by: Cristofer Medina M.D. 10/23/2017 7:20 AM Dictated Date/Time: 10/23/2017 7:04 AM
--- NOTE | 2017-10-23 14:50 | CONSULTATION REPORT ---
DATE OF CONSULTATION: 10/23/2017 DATE OF CONSULTATION: 10/23/2017 REASON FOR CONSULT: Right proximal humerus fracture. HISTORY OF PRESENT ILLNESS: The patient is an 87-year-old white female who was admitted to the hospital after having a fall at home. It was unclear why she had fallen. The patient states that if she walked into the family room at her home she feels that the room was somewhat spinning and she ended up falling face forward with outstretched arms. She initially was feeling around and did not have any pain; however, as she was able to get up and mobile with help from her daughter after lying on the floor for approximately 3-4 hours she noted right shoulder pain and she was brought to the Emergency Room. She was seen by the staff and x-rays were taken of the right shoulder as well as a CT scan showed a comminuted slightly displaced fracture involving the lateral aspect of the right humeral head and neck. There was no dislocation noted. We have now been consulted to see her for her right proximal humerus fracture. PAST MEDICAL HISTORY: Heart disease, hypertension, hypothyroidism, history of pacemaker insertion in the past. FAMILY HISTORY: Cancer. SOCIAL HISTORY: The patient is a nonsmoker. She is retired and is . MEDICATIONS: Zetia 10 mg p.o. daily, levothyroxine 100 mcg p.o. daily, VESIcare 10 mg p.o. daily. ALLERGIES: SHE IS ALLERGIC TO ADHESIVES, MORPHINE AND SULFA DRUGS. REVIEW OF SYSTEMS: As per admitting history and physical. PHYSICAL EXAMINATION: VITAL SIGNS: Latest vital signs today were showing temperature 36.7, pulse 75, respirations 16, BP 130/73, pulse ox 96 on room air. GENERAL: The patient is a well-developed, well-nourished white female who is alert and oriented x3 and in no acute distress, pleasant and cooperative. EXTREMITIES: On examination of her right shoulder, she has a sling on the right upper extremity and some mild swelling noted over the right shoulder. She has tenderness on palpation over the shoulder laterally and anteriorly but not so much posteriorly and no pain around the clavicle and/or scapula. She denies neck pain at this time on palpation. She has no pain in the biceps, triceps area and no pain in the right elbow and/or wrist. She has limited range of motion due to pain in the right shoulder at this time. She has good range of motion of her right wrist and fingers. Elbow is somewhat limited due to being in a sling, which is left on during exam. No pain in the forearm on palpation. Capillary refill of the fingers is less than 2 seconds. Other than her inability to do range of motion of the right shoulder due to pain she has no other gross motor or sensory deficits at this time. ASSESSMENT: Right comminuted with slightly displaced fracture of the proximal humerus. PLAN: Films were reviewed with Dr. Mullins and it is felt that this is not an operative fracture and can be taken care with use of sling. She will need to be in a sling 05/05 at this time and can do gentle range of motion of her elbow and wrist. No overt range of motion of the right shoulder at this time other than for getting dressed, etc. She can be treated with tramadol for pain control or if she can tolerate something a little stronger OxyIR may be beneficial if the patient is able to tolerate narcotics. She can follow up with Dr. Mullins in the office in 10-14 days. Thank you for this consult.
--- NOTE | 2017-10-23 21:01 | Progress Note ---
Medicine Progress Note Date & Time of Visit: Oct 23, 2017 at 13:15 . Subjective CC: Follow-up visit for fall and fracture of right humerus. HPI: Moderate RUE pain. No chest pain. No cough or SOB. No nausea or vomiting. No urinary symptoms. ROS: as noted above in HPI . Objective Last 8 Hrs Date Time Temp Pulse Resp B/P (MAP) Pulse Ox O2 Delivery O2 Flow Rate FiO2 10/23/17 19:29 36.3 77 22 126/73 (90) 94 Room Air 10/23/17 16:00 95 Room Air 10/23/17 16:00 36.8 74 18 147/75 (99) 96 Room Air 10/23/17 15:58 79 144/81 (102) 10/23/17 15:56 72 134/65 (88) Physical Exam: General- lying in bed; no distress Lungs- clear; no respiratory distress Cardiovascular- RRR, III/ sys murmur, no gallop; no JVD; 1+ pretibial edema Abdomen- + BS, soft, nontender Extremities- RUE immobilized; no cyanosis; no calf tenderness Neuro- alert, oriented Skin- mild erythema and warmth bilateral lower extremities . Laboratory Results: Last 24 Hours Test 10/22/17 22:40 10/22/17 22:45 10/22/17 22:58 10/23/17 05:49 Urine Color YELLOW Urine Appearance CLEAR Urine pH >= 9.0 Urine Specific [place] 1.011 Urine Protein NEG Urine Glucose (UA) NEG Urine Ketones NEG Urine Occult Blood NEG Urine Nitrite POS Urine Bilirubin NEG Urine Urobilinogen NEG Urine Leukocyte Esterase SMALL Urine WBC (Auto) 10-30 /hpf Urine RBC (Auto) 0-4 /hpf Urine Hyaline Casts (Auto) 0 /lpf Urine Epithelial Cells (Auto) >30 /lpf Urine Bacteria (Auto) 2+ White Blood Count 11.28 K/uL 6.75 K/uL Red Blood Count 4.47 M/uL 3.84 M/uL Hemoglobin 13.3 g/dL 11.5 g/dL Hematocrit 41.4 % 35.7 % Mean Corpuscular Volume 92.6 fL 93.0 fL Mean Corpuscular Hemoglobin 29.8 pg 29.9 pg Mean Corpuscular Hemoglobin Concent 32.1 g/dl 32.2 g/dl Platelet Count 238 K/uL 209 K/uL Mean Platelet Volume 10.7 fL 10.7 fL Neutrophils (%) (Auto) 80.0 % 68.0 % Lymphocytes (%) (Auto) 11.0 % 19.9 % Monocytes (%) (Auto) 7.6 % 10.4 % Eosinophils (%) (Auto) 0.8 % 1.3 % Basophils (%) (Auto) 0.2 % 0.3 % Neutrophils # (Auto) 9.03 K/uL 4.59 K/uL Lymphocytes # (Auto) 1.24 K/uL 1.34 K/uL Monocytes # (Auto) 0.86 K/uL 0.70 K/uL Eosinophils # (Auto) 0.09 K/uL 0.09 K/uL Basophils # (Auto) 0.02 K/uL 0.02 K/uL RDW Standard Deviation 49.2 fL 49.9 fL RDW Coefficient of Variation 14.5 % 14.5 % Immature Granulocyte % (Auto) 0.4 % 0.1 % Immature Granulocyte # (Auto) 0.04 K/uL 0.01 K/uL Sodium Level 142 mmol/L 138 mmol/L Potassium Level 3.7 mmol/L 3.9 mmol/L Chloride Level 106 mmol/L 108 mmol/L Carbon Dioxide Level 29 mmol/L 27 mmol/L Anion Gap 7.0 mmol/L 3.0 mmol/L Blood Urea Nitrogen 17 mg/dl 17 mg/dl Creatinine 0.74 mg/dl 0.63 mg/dl Est Creatinine Clear Calc Drug Dose 53.3 ml/min 62.6 ml/min Estimated GFR () 83.8 92.8 Estimated GFR (Non- 72.3 80.1 BUN/Creatinine Ratio 22.9 27.5 Random Glucose 109 mg/dl 106 mg/dl Calcium Level 8.6 mg/dl 8.2 mg/dl Total Bilirubin 0.3 mg/dl 0.4 mg/dl Direct Bilirubin < 0.1 mg/dl Aspartate Amino Transf (AST/SGOT) 18 U/L 15 U/L Alanine Aminotransferase (ALT/SGPT) 17 U/L 14 U/L Alkaline Phosphatase 68 U/L 60 U/L Total Creatine Kinase 80 U/L Creatine Kinase MB 1.4 ng/ml Creatine Kinase MB Ratio 1.7 Troponin I 0.027 ng/ml Total Protein 7.2 gm/dl 6.5 gm/dl Albumin 3.3 gm/dl 3.0 gm/dl Bedside Troponin I < 0.030 ng/ml Erythrocyte Sedimentation Rate 23 mm/hr C-Reactive Protein 0.44 mg/dl Globulin 3.5 gm/dl Albumin/Globulin Ratio 0.9 Date/Time Source Procedure Growth Status 10/23/17 05:54 Blood Blood Culture Pending Received 10/23/17 05:49 Blood Blood Culture Pending Received 10/23/17 03:00 Nasal MRSA DNA Surveillance Screen - Final Specimen Negative for MRSA by DNA Probe Complete 10/22/17 22:40 Urine , Clean Catch Urine Culture Pending Received Assessment & Plan FALL Nature of fall uncertain. Monitor for arrhythmias. Pacemaker interrogation requested. Check orthostatic vital signs. PT / OT evals. FRACTURE RIGHT HUMERUS Ortho consulted. POSSIBLE CELLULITIS LOWER EXTREMITIES Continue ceftriaxone. SYSTOLIC MURMUR Check echo reports. HYPERTENSION Follow and titrate Rx. ABNORMAL UA UA showed WBC's, bacteria, epithelial cells. No fever or dysuria. C&S pending. VTE PROPHYLAXIS SCD' s ordered. Ambulate. DISPOSITION To be determined. Family Medicine follow-up with Dr. Goncalves Daughter visiting and given update. . Current Inpatient Medications: Current Inpatient Medications Medications (Trade) Dose Ordered Sig/Anselmo Route Start Time Stop Time Status Last Admin Dose Admin Acetaminophen (Tylenol Tab) 650 mg Q4H PRN PO 10/23/17 01:30 11/22/17 01:29 Ketorolac Tromethamine (Toradol Inj) 15 mg Q6H PRN IV 10/23/17 01:30 10/28/17 01:29 10/23/17 14:08 15 MG Sodium Chloride 1,000 ml @ 75 mls/hr [id number] IV 10/23/17 03:00 11/22/17 02:59 10/23/17 16:15 75 MLS/HR Ceftriaxone Sodium 1 gm/ Dextrose 50 ml @ 100 mls/hr Q24H IV 10/24/17 01:00 11/01/17 01:29
[2017-10-24] VITALS (8 sets, daily range): BP systolic 121–182; BP diastolic 75–99; PULSE 77–99; TEMP 36.3–36.9; O2SAT 93–95
[2017-10-24] MEDS: CEFTRIAXONE SOD INJ 1 GM in DEXTROSE 5% ADD-VANTAGE 50ML 50 ML IV SCH (00:42)
[2017-10-24] MEDS: SODIUM CHLORIDE 0.9% 1000ML 1,000 ML IV SCH ×2 (05:40→19:15)
--- NOTE | 2017-10-24 22:56 | Progress Note ---
Medicine Progress Note Date & Time of Visit: Oct 24, 2017 at 16:07 . Subjective CC: Follow-up visit for multiple problems. HPI: No fever. Has some RUE discomfort, but not severe. No chest pain, palpitations, SOB. No lower extremity pain. No dysuria. Daughter visiting. ROS: General- no fever, no chills Resp- no cough; no shortness of breath Cardiac- noted above in HPI GI- no nausea, no vomiting, no diarrhea, no constipation - no dysuria, no difficulty voiding . Objective Last 8 Hrs Date Time Temp Pulse Resp B/P (MAP) Pulse Ox O2 Delivery O2 Flow Rate FiO2 10/24/17 16:01 93 Room Air 10/24/17 15:08 36.8 77 20 149/78 (101) 95 Room Air 10/24/17 11:53 93 Room Air 10/24/17 11:39 36.7 83 20 121/75 (90) 94 Physical Exam: General- lying in bed; no distress Lungs- clear; no respiratory distress Cardiovascular- RRR, III/ sys murmur, no gallop; no JVD; 1+ pretibial edema Abdomen- + BS, soft, nontender Extremities- RUE immobilized; no cyanosis; no calf tenderness Neuro- alert, oriented essentially x 3, but some problems with short-term memory and exact date Skin- mild erythema and warmth bilateral lower extremities . Assessment & Plan FALL Nature of fall uncertain. Monitor for arrhythmias. Pacemaker interrogation requested. Orthostatic vital signs - no BP drop from supine to standing. Check f/u echo as discussed below. PT / OT evals. FRACTURE RIGHT HUMERUS Ortho consulted. Nonoperative management recommended. OSTEOPOROSIS Check vitamin D level. POSSIBLE CELLULITIS LOWER EXTREMITIES Erythema and warmth bilateral lower extremities. Afebrile. C-reactive protein slightly elevated. Continue ceftriaxone. BACTERURIA / POSSIBLE UTI UA showed WBC's, bacteria, epithelial cells. No fever, no dysuria. Urine culture growing E coli. Patient had a fall and is more confused than baseline, so must assume that she is symptomatic from UTI. Continue ceftriaxone pending sensitivities. SYSTOLIC MURMUR Echo @ [facility] 10/21/10showed mild aortic stenosis (EVELYN 1.4 cm2). Follow-up echo @ [facility] 09/09/16 showed moderate-severe aortic stenosis. Check f/u echo in light of unexplained fall. S/P PACEMAKER PLACEMENT Pacemaker interrogation requested. HYPERTENSION Follow and titrate Rx. HYPOTHYROIDISM Check TSH. Continue levothyroxine. DYSLIPIDEMIA Continue ezetimibe. DEMENTIA Patient and her daughter indicate chronic problems with short-term memory, somewhat worse with current hospitalization. Monitor for delirium. May be best to stop solifenacin due to anticholinergic effects. Pt has been prescribed donepezil in the past, but not on med reconciliation. Need to clarify if she is still taking it at home. VTE PROPHYLAXIS SCD' s ordered. Ambulate. DISPOSITION To be determined. Anticipate need for skilled care or inpatient rehab. Family Medicine follow-up with Dr. Goncalves Daughter visiting and given update. . Current Inpatient Medications: Current Inpatient Medications Medications (Trade) Dose Ordered Sig/Anselmo Route Start Time Stop Time Status Last Admin Dose Admin Acetaminophen (Tylenol Tab) 650 mg Q4H PRN PO 10/23/17 01:30 11/22/17 01:29 Ketorolac Tromethamine (Toradol Inj) 15 mg Q6H PRN IV 10/23/17 01:30 10/28/17 01:29 10/23/17 14:08 15 MG Sodium Chloride 1,000 ml @ 75 mls/hr [id number] IV 10/23/17 03:00 11/22/17 02:59 10/24/17 05:40 75 MLS/HR Ceftriaxone Sodium 1 gm/ Dextrose 50 ml @ 100 mls/hr Q24H IV 10/24/17 01:00 11/01/17 01:29 10/24/17 00:42 100 MLS/HR
[2017-10-25] VITALS (7 sets, daily range): BP systolic 134–161; BP diastolic 69–80; PULSE 68–79; TEMP 36.4–36.8; O2SAT 94–97
[2017-10-25] MEDS: KETOROLAC TROMETHAMINE 15 MG/ML VIAL IV PRN (00:18)
[2017-10-25] MEDS: CEFTRIAXONE SOD INJ 1 GM in DEXTROSE 5% ADD-VANTAGE 50ML 50 ML IV SCH (00:18)
[2017-10-25] MEDS: LEVOTHYROXINE 100 MCG TAB PO SCH (06:06)
[2017-10-25] MEDS: EZETIMIBE 10MG TAB PO SCH (08:28)
[2017-10-25] MEDS: SODIUM CHLORIDE 0.9% 1000ML 1,000 ML IV SCH ×2 (08:28→21:03)
[2017-10-25 09:49] LABS: CALCIUM 8.2 mg/dl (8.5-10.1); CREATININE 0.67 mg/dl (0.60-1.20); POTASSIUM 3.6 mmol/L (3.5-5.1)
--- NOTE | 2017-10-25 13:56 | CARDIOLOGY CONSULTATION ---
DATE OF CONSULTATION: 10/25/2017 DATE OF CONSULTATION: 10/25/2017 REFERRING: Dr. Gandhi. INDICATIONS: Fall with humeral fracture. History of aortic stenosis, prior pacemaker insertion. HISTORY OF PRESENT ILLNESS: The patient is an 87-year-old female admitted after a fall. The patient feels she is swooned and fell to the floor. She does not note complete syncope but did note unsteadiness on her feet. The patient is a poor historian due to underlying history of dementia cognitive disorder. Information is obtained from discussion with the patient, review of chart but also review of outpatient records. The patient carries a history of prior multiple falls and similar events. Pacemaker appears to have been placed empirically due to past history of possible syncope. The patient received at that time a [employer] dual chamber device in 2016 and though per review of records, patient continued to have similar symptoms. 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 The patient is unable to offer additional information specifically denies any prior past history or disorders. Notes no current complaints at time of examination. Denies specifically chest pain or discomfort. Notes no orthopnea, worsening peripheral edema though historical accuracy is suspect. ALLERGIES: ADHESIVE, MORPHINE AND SULFA. MEDICATIONS PRIOR TO HOSPITALIZATION: Ezetimibe, levothyroxine, VESIcare per medical reconciliation though outpatient records also include Aricept and Myrbetriq. PAST SURGICAL HISTORY: Notable for prior repair cystocele, cataract surgeries, remote D&C, past hemorrhoidectomy and rectocele repair, hysterectomy. FAMILY HISTORY: Not specifically notable for cardiac disease per records. SOCIAL HISTORY: The patient is a nonsmoker, nondrinker. She states she lives with her daughter in [place]. PHYSICAL EXAMINATION: GENERAL: The patient is a pleasant, age-appropriate female. She has a right arm in a sling. VITAL SIGNS: Reveal a heart rate of 69, blood pressure is 134/72. HEAD, EYES, EARS, NOSE, AND THROAT: Normocephalic, atraumatic. Nares without discharge. Throat was clear. NECK: Supple without thyromegaly, lymphadenopathy, JVD. There are no carotid bruits. There is a referred murmur to the base of carotids. LUNGS: Clear to auscultation. CARDIOVASCULAR: Regular with a harsh grade 3/6 systolic murmur. There is no diastolic murmur. PMI is nondisplaced. ABDOMEN: Soft, nontender. EXTREMITIES: Without cyanosis or clubbing. There is no peripheral edema. There are intact distal pulses at 2/4 with mild chronic stasis changes present. LABORATORY DATA: Sed rate 23, white cell count on presentation was 11.28, repeat was 6.75, hemoglobin was 11.5. Sodium is 138, potassium is 3.6, chloride 108, bicarbonate 24, BUN 11, creatinine 0.6. TSH was 3.3. EKG reveals atrial sensed and ventricular paced rhythm. Pacer interrogation on initial evaluation revealed no significant arrhythmias with normal atrial sensing ventricular paced rhythm. Echocardiogram formally is pending. Initial review of studies prior to complete availability demonstrates mild left ventricular hypertrophy with preserved LV systolic function, moderate annular calcification mitral valve, heavy calcifications aortic valve with borderline severe aortic stenosis, calculated valve area 1.0 cm2. There was moderate mitral insufficiency. No evidence of pulmonary hypertension. The aortic root was not enlarged. IMPRESSION: The patient is an 87-year-old female who per review of records, appears to have had multiple issues with falls dating back several years in duration with frequent recurrences and ultimately underwent empiric pacemaker insertion for concern whether these represented conduction system disease with patient receiving a dual chamber [employer] Kel[employer] device in 2016. She carries an underlying history of aortic valvular disease with borderline severe aortic stenosis by echocardiogram performed today. Suspect the patient's recent symptoms however given heart rate with normal pacemaker function and blood pressure reflects past issues rather than acute decline in cardiac function or worsening valvular disease, though she certainly would be at greater risk for orthostasis in the setting of any acute illness, urinary tract infection, etc. Per records, she takes Myrbetriq as an outpatient. If she is still on this medication would consider discontinuing. No other recommendations at this point in time.
--- NOTE | 2017-10-25 15:21 | ECHOCARDIOGRAM REPORT ---
*NOTICE TO RECEIVING [employer] This information is strictly Confidential and protected under [place] law. [place] law prohibits you from making any further disclosure of this information unless further disclosure is expressly permitted by the written consent of the person to whom it pertains or is authorized by law. A general authorization for the release of medical or other information is not sufficient for this purpose. Hospital accepts no responsibility if the information is made available to any other person, INCLUDING THE PATIENT. Interpretation Summary * Name: ARMEN ROME Study Date: 10/25/2017 11:38 AM BP: 134/72 mmHg * Patient Location: .MED\S\N285\S\2 HR: 69 * : 1930 (M/d/yyyy) Gender: Female Height: 65 in * Age: 87 yrs Ethnicity: CA Weight: 162 lb * Ordering Physician: Jhon Gandhi * Referring Physician: Self, Referred * Performed By: Tona Uriarte RDCS * * Reason For Study: MURMURS * BSA: 1.8 m2 * -- Conclusions -- * The left ventricle is normal in size. * There is moderate concentric left ventricular hypertrophy. * Left ventricular systolic function is normal. * Apical wall motion abnormality may reflect pacemaker activation. * There is mild apical wall hypokinesis. * Ejection Fraction = 50-55%. * The aortic valve is calcified and restricted in mobility * Borderline severe aortic steosisis present, aortic valve area 1.0 cm2. * There is mild mitral regurgitation. * There is trace tricuspid regurgitation. Procedure Details * A complete two-dimensional transthoracic echocardiogram was performed (2D, M-mode, Doppler and color flow Doppler). Left Ventricle * The left ventricle is normal in size. * There is moderate concentric left ventricular hypertrophy. * Left ventricular systolic function is normal. * Ejection Fraction = 50-55%. * Apical wall motion abnormality may reflect pacemaker activation. * There is mild apical wall hypokinesis. Right Ventricle * The right ventricle is normal in size and function. * There is a pacemaker lead in the right ventricle. Atria * The left atrial size is normal. * Right atrial size is normal. * No ASD detected; PFO is not assessed. Mitral Valve * There is moderate mitral annular calcification. * There is no mitral valve stenosis. * There is mild mitral regurgitation. Tricuspid Valve * The tricuspid valve anatomy is normal. * There is no tricuspid stenosis. * There is trace tricuspid regurgitation. * Doppler findings do not suggest pulmonary hypertension. Aortic Valve * The aortic valve is trileaflet. * The aortic valve is calcified and restricted in mobility Borderline severe aortic steosisis present, aortic valve area 1.0 cm2. * No aortic regurgitation is present. Pulmonic Valve * The pulmonic valve is not well visualized. Great Vessels * The aortic root is normal size. Pericardium/Pleural * There is no pericardial effusion. Great Vessels * Normal inferior vena cava diameter and respiratory variation suggests normal central venous pressure. Left Ventricular Diastolic Function * Grade I diastolic dysfunction, (abnormal relaxation pattern). MMode 2D Measurements and Calculations IVSd 1.4 cm IVSs 1.7 cm LVIDd 3.7 cm LVIDs 2.4 cm LVPWd 1.1 cm LVPWs 1.3 cm IVS/LVPW 1.3 FS 33.9 % EDV(Teich) 57.9 ml ESV(Teich) 21.1 ml EF(Teich) 63.6 % EDV(cubed) 50.4 ml ESV(cubed) 14.6 ml EF(cubed) 71.1 % % IVS thick 19.6 % % LVPW thick 25.7 % LV mass(C)d 156.0 grams LV mass(C)dI 86.2 grams/m\S\2 LV mass(C)s 126.3 grams LV mass(C)sI 69.8 grams/m\S\2 SV(Teich) 36.9 ml SI(Teich) 20.4 ml/m\S\2 SV(cubed) 35.9 ml SI(cubed) 19.8 ml/m\S\2 LA dimension 3.0 cm LVOT diam 1.9 cm LVOT area 2.8 cm\S\2 LVAd ap4 37.1 cm\S\2 LVLd ap4 9.0 cm EDV(MOD-sp4) 120.3 ml EDV(sp4-el) 130.4 ml LVAs ap4 20.9 cm\S\2 LVLs ap4 8.1 cm ESV(MOD-sp4) 43.9 ml ESV(sp4-el) 45.7 ml EF(MOD-sp4) 63.5 % EF(sp4-el) 64.9 % LVAd ap2 31.8 cm\S\2 LVLd ap2 8.6 cm EDV(MOD-sp2) 93.9 ml EDV(sp2-el) 100.0 ml LVAs ap2 17.8 cm\S\2 LVLs ap2 7.6 cm ESV(MOD-sp2) 35.7 ml ESV(sp2-el) 35.4 ml EF(MOD-sp2) 62.0 % EF(sp2-el) 64.6 % LVLd %diff -4.78 % EDV(MOD-bp) 106.8 ml LVLs %diff -6.43 % ESV(MOD-bp) 39.4 ml EF(MOD-bp) 63.1 % SV(MOD-sp4) 76.4 ml SI(MOD-sp4) 42.2 ml/m\S\2 SV(MOD-sp2) 58.2 ml SI(MOD-sp2) 32.2 ml/m\S\2 SV(MOD-bp) 67.4 ml SI(MOD-bp) 37.2 ml/m\S\2 SV(sp4-el) 84.6 ml SI(sp4-el) 46.8 ml/m\S\2 SV(sp2-el) 64.6 ml SI(sp2-el) 35.7 ml/m\S\2 Doppler Measurements and Calculations MV E max cameron 102.5 cm/sec MV A max cameron 126.7 cm/sec MV E/A 0.81 MV dec time 0.30 sec Ao V2 max 346.7 cm/sec Ao max PG 48.1 mmHg Ao max PG (full) 42.3 mmHg Ao V2 mean 239.1 cm/sec Ao mean PG 25.7 mmHg Ao mean PG (full) 22.7 mmHg Ao V2 VTI 74.2 cm EVELYN(I,A) 0.99 cm\S\2 EVELYN(I,D) 0.99 cm\S\2 EVELYN(V,A) 0.98 cm\S\2 EVELYN(V,D) 0.98 cm\S\2 LV V1 max PG 5.8 mmHg LV V1 mean PG 3.0 mmHg LV V1 max 120.2 cm/sec LV V1 mean 80.1 cm/sec LV V1 VTI 25.9 cm SV(LVOT) 73.2 ml SI(LVOT) 40.5 ml/m\S\2 TR max cameron 244.8 cm/sec
--- NOTE | 2017-10-25 19:38 | Progress Note ---
Medicine Progress Note Date & Time of Visit: Oct 25, 2017 at 17:10 . Subjective CC: Follow-up visit for multiple problems. HPI: No fever. Minimal pain right upper extremity. No chest pain, palpitations, SOB. No lower extremity pain. No dysuria. Daughter and granddaughter visiting. ROS: General- no fever, no chills Resp- no cough; no shortness of breath Cardiac- noted above in HPI GI- no nausea, no vomiting, no diarrhea - no dysuria, no difficulty voiding . Objective Last 8 Hrs Date Time Temp Pulse Resp B/P (MAP) Pulse Ox O2 Delivery O2 Flow Rate FiO2 10/25/17 16:00 Room Air 10/25/17 15:17 36.5 71 16 148/80 (102) 95 Room Air 10/25/17 12:00 Room Air 10/25/17 11:39 36.4 69 20 134/72 (92) 96 Room Air Physical Exam: General- lying in bed; no distress Lungs- clear; no respiratory distress Cardiovascular- RRR, III/ sys murmur, no gallop; no JVD; 1+ pretibial edema Abdomen- + BS, soft, nontender Extremities- RUE immobilized; no cyanosis; no calf tenderness Neuro- alert, oriented essentially x 3, but some problems with short-term memory Skin- warm & dry, less erythema and warmth bilateral lower extremities . Laboratory Results: Last 24 Hours Test 10/25/17 08:49 Sodium Level 138 mmol/L Potassium Level 3.6 mmol/L Chloride Level 108 mmol/L Carbon Dioxide Level 24 mmol/L Anion Gap 6.0 mmol/L Blood Urea Nitrogen 11 mg/dl Creatinine 0.67 mg/dl Est Creatinine Clear Calc Drug Dose 58.6 ml/min Estimated GFR () 91.0 Estimated GFR (Non- 78.5 BUN/Creatinine Ratio 17.0 Random Glucose 155 mg/dl Calcium Level 8.2 mg/dl 25-Hydroxy Vitamin D Total 8.6 ng/ml Thyroid Stimulating Hormone (TSH) 3.370 uIu/ml Assessment & Plan FALL Nature of fall uncertain. Monitor for arrhythmias Pacemaker interrogation requested. Orthostatic vital signs - no BP drop from supine to standing. Echo showed borderline severe . PT / OT. FRACTURE RIGHT HUMERUS Ortho consulted. Nonoperative management recommended. OSTEOPOROSIS Vitamin D level = 9. Replace. Follow. POSSIBLE CELLULITIS LOWER EXTREMITIES Erythema and warmth bilateral lower extremities. Afebrile. C-reactive protein slightly elevated. Continue ceftriaxone. BACTERURIA / POSSIBLE UTI UA showed WBC's, bacteria, epithelial cells. No fever, no dysuria. Urine culture growing E coli. Patient had a fall and is more confused than baseline, so must assume that she is symptomatic from UTI. Continue ceftriaxone. SYSTOLIC MURMUR Echo @ [facility] 10/21/10showed mild aortic stenosis (EVELYN 1.4 cm2). Follow-up echo @ [facility] 09/09/16 showed moderate-severe aortic stenosis. Echo now shows borderline severe . Management per Cardiology. S/P PACEMAKER PLACEMENT Pacemaker interrogation performed. Device sensing and pacing appropriately. HYPERTENSION Follow and titrate Rx. HYPOTHYROIDISM TSH normal. Continue levothyroxine. DYSLIPIDEMIA Continue ezetimibe. URINARY SYMPTOMS Outpatient medication list includes mirabegron and solifenacin. Patient uncertain whether or not she is taking both at this time. May be best to stop both- mirabegron because of cardiac issues and solifenacin because of dementia. DEMENTIA Patient and her daughter indicate chronic problems with short-term memory, somewhat worse with current hospitalization. Continue donepezil. Monitor for delirium. May be best to stop solifenacin due to anticholinergic effects. VTE PROPHYLAXIS SCD' s ordered. Ambulate. DISPOSITION Anticipate need for skilled care or inpatient rehab. Family Medicine follow-up with Dr. Goncalves Daughter visiting and given update. . Current Inpatient Medications: Current Inpatient Medications Medications (Trade) Dose Ordered Sig/Anselmo Route Start Time Stop Time Status Last Admin Dose Admin Acetaminophen (Tylenol Tab) 650 mg Q4H PRN PO 10/23/17 01:30 11/22/17 01:29 Ketorolac Tromethamine (Toradol Inj) 15 mg Q6H PRN IV 10/23/17 01:30 10/28/17 01:29 10/25/17 00:18 15 MG Sodium Chloride 1,000 ml @ 75 mls/hr [id number] IV 10/23/17 03:00 11/22/17 02:59 10/25/17 08:28 75 MLS/HR Ceftriaxone Sodium 1 gm/ Dextrose 50 ml @ 100 mls/hr Q24H IV 10/24/17 01:00 1/20/18 01:29 10/25/17 00:18 100 MLS/HR EZETIMIBE (Zetia Tab) 10 mg DAILY PO 10/25/17 09:00 11/24/17 08:59 10/25/17 08:28 10 MG Levothyroxine Sodium (Synthroid Tab) 100 mcg DAILYBB PO 10/25/17 06:30 11/24/17 06:29 10/25/17 06:06 100 MCG
[2017-10-26] VITALS (7 sets, daily range): BP systolic 145–152; BP diastolic 69–77; PULSE 72–86; TEMP 36.3–36.9; O2SAT 94–96
[2017-10-26] MEDS: CEFTRIAXONE SOD INJ 1 GM in DEXTROSE 5% ADD-VANTAGE 50ML 50 ML IV SCH (00:37)
[2017-10-26] MEDS ORDERED: DONE5TAB9 PO (01:15)
[2017-10-26] MEDS ORDERED: MIRA1TAB3 PO (01:15)
[2017-10-26] MEDS: LEVOTHYROXINE 100 MCG TAB PO SCH (06:42)
[2017-10-26] MEDS: EZETIMIBE 10MG TAB PO SCH (07:50)
[2017-10-26] MEDS ORDERED: ERGOCALCIFEROL 50,000 INTER.UNIT CAP PO SCH (09:00)
[2017-10-26] MEDS: SODIUM CHLORIDE 0.9% 1000ML 1,000 ML IV SCH (11:18)
--- NOTE | 2017-10-26 11:57 | PROGRESS NOTE ---
DATE: 10/26/2017 CARDIOLOGY CONSULTATION FOLLOWUP NOTE The patient seen and examined. Chart, medications, telemetry reviewed. SUBJECTIVE: The patient notes no complaints this morning, pain is tolerated. She is pleasant, sitting upright in bed. OBJECTIVE: VITAL SIGNS: Heart rate is 72, blood pressure is 148/77. NECK: Thin. There is no jugular venous distention. No carotid bruits. LUNGS: Clear to auscultation. CARDIOVASCULAR: Regular with a grade 2-3/6 systolic murmur. There is no diastolic murmur. Pacemaker sites without tenderness. ABDOMEN: Soft, nontender. EXTREMITIES: Without cyanosis or clubbing. There is no peripheral edema. DATA: Telemetry reveals no significant arrhythmias. IMPRESSION AND PLAN: An 87-year-old female admitted after a fall with humeral fracture. The patient carries a history of multiple falls in the past and has empirically placed pacemaker due to concerns regarding arrhythmias as source. No defined arrhythmias other than transient atrial tachycardia brief, nonsustained on past pacemaker interrogations. Telemetry reveals no significant arrhythmias. Echocardiogram does demonstrate severe aortic stenosis which preclude her to orthostatic hypotension and symptomatic complaints, possibly of sudden positional changes or illness. I have made no adjustments in medical therapy. YENNIFER
[2017-10-26] MEDS: DONEPEZIL HCL 5 MG TAB PO SCH (20:48)
--- NOTE | 2017-10-26 23:30 | Progress Note ---
Medicine Progress Note Date & Time of Visit: Oct 26, 2017 at 16:00 . Subjective CC: Follow-up visit for multiple problems. HPI: Doing well. No fever. Denies pain right upper extremity. No chest pain, palpitations, SOB. No lower extremity pain. No dysuria. Daughter visiting. ROS: General- no fever, no chills Resp- no cough; no shortness of breath Cardiac- noted above in HPI GI- no nausea, no vomiting, no diarrhea - no dysuria . Objective Last 8 Hrs Date Time Temp Pulse Resp B/P (MAP) Pulse Ox O2 Delivery O2 Flow Rate FiO2 10/26/17 18:56 36.6 79 18 152/69 (96) 96 Room Air 10/26/17 16:00 96 Room Air 10/26/17 15:21 36.4 77 18 149/76 (100) 96 Room Air 10/26/17 12:01 Room Air 10/26/17 11:52 36.3 86 16 145/70 (95) 95 Physical Exam: General- lying in bed; no distress Lungs- clear; no respiratory distress Cardiovascular- RRR, III/ sys murmur, no gallop; no JVD; 1+ pretibial edema Abdomen- + BS, soft, nontender Extremities- RUE immobilized; no cyanosis; no calf tenderness Neuro- alert, oriented essentially x 3, but states that it is 2017. Skin- warm & dry, less erythema and warmth bilateral lower extremities . Assessment & Plan FALL Nature of fall uncertain. Monitoring for arrhythmias; has had some ectopy and occasional runs of PAT. Pacemaker interrogation requested. Orthostatic vital signs - no BP drop from supine to standing. Echo showed borderline severe . PT / OT. FRACTURE RIGHT HUMERUS Ortho consulted. Nonoperative management recommended. OSTEOPOROSIS Vitamin D level = 9. Replace. Follow. CELLULITIS LOWER EXTREMITIES Erythema and warmth bilateral lower extremities at time of admission, worse than baseline per daughter's observation. Afebrile. C-reactive protein slightly elevated. Improving. Continue ceftriaxone. BACTERURIA / POSSIBLE UTI UA showed WBC's, bacteria, epithelial cells. No fever, no dysuria. Urine culture growing E coli. Patient had a fall and is more confused than baseline, so must assume that she is symptomatic from UTI. Continue ceftriaxone. SYSTOLIC MURMUR Echo @ [facility] 10/21/10showed mild aortic stenosis (EVELYN 1.4 cm2). Follow[place] echo [place] [facility] 09[place]09[place]16 showed moderate-severe aortic stenosis. Echo now shows borderline severe . Management per Cardiology. S/P PACEMAKER PLACEMENT Pacemaker interrogation performed. Device sensing and pacing appropriately. HYPERTENSION Follow and titrate Rx. HYPOTHYROIDISM TSH normal. Continue levothyroxine. DYSLIPIDEMIA Continue ezetimibe. URINARY SYMPTOMS Outpatient medication list includes mirabegron and solifenacin. Patient uncertain whether or not she is taking both at this time. Stopped mirabegron because of cardiac issues and solifenacin because of dementia. DEMENTIA Patient and her daughter indicate chronic problems with short-term memory, somewhat worse with current hospitalization. Continue donepezil. Monitor for delirium. Stopped solifenacin due to anticholinergic effects. VTE PROPHYLAXIS SCD' s ordered. Ambulate. DISPOSITION Anticipate need for skilled care or inpatient rehab. Family Medicine follow-up with Dr. Goncalves Daughter visiting and given update. . Current Inpatient Medications: Current Inpatient Medications Medications (Trade) Dose Ordered Sig/Anselmo Route Start Time Stop Time Status Last Admin Dose Admin Acetaminophen (Tylenol Tab) 650 mg Q4H PRN PO 10/23/17 01:30 11/22/17 01:29 Ketorolac Tromethamine (Toradol Inj) 15 mg Q6H PRN IV 10/23/17 01:30 10/28/17 01:29 10/25/17 00:18 15 MG Sodium Chloride 1,000 ml @ 75 mls/hr [id number] IV 10/23/17 03:00 11/22/17 02:59 10/26/17 11:18 75 MLS/HR Ceftriaxone Sodium 1 gm/ Dextrose 50 ml @ 100 mls/hr Q24H IV 10/24/17 01:00 11/01/17 01:29 10/26/17 00:37 100 MLS/HR EZETIMIBE (Zetia Tab) 10 mg DAILY PO 10/25/17 09:00 11/24/17 08:59 10/26/17 07:50 10 MG Levothyroxine Sodium (Synthroid Tab) 100 mcg DAILYBB PO 10/25/17 06:30 11/24/17 06:29 10/26/17 06:42 100 MCG Donepezil HCl (Aricept Tab) 5 mg HS PO 10/26/17 21:00 11/25/17 20:59
[2017-10-27] MEDS: SODIUM CHLORIDE 0.9% 1000ML 1,000 ML IV SCH ×2 (00:28→14:22)
[2017-10-27] MEDS: CEFTRIAXONE SOD INJ 1 GM in DEXTROSE 5% ADD-VANTAGE 50ML 50 ML IV SCH (00:28)
[2017-10-27] MEDS: LEVOTHYROXINE 100 MCG TAB PO SCH (06:06)
[2017-10-27 06:55] VITALS: BP 148/75; PULSE 75; TEMP 36.8; O2SAT 95
[2017-10-27] MEDS: EZETIMIBE 10MG TAB PO SCH (10:46)
[2017-10-27 11:33] VITALS: BP 132/77; PULSE 75; TEMP 37.1; O2SAT 95
[2017-10-27 14:55] VITALS: BP 145/78; PULSE 76; TEMP 36.7; O2SAT 95
[2017-10-27] MEDS ORDERED: POLYETHYLENE (MIRALAX) 17 GM PACK PO ONE (15:20)
[2017-10-27 16:00] VITALS: O2SAT 95
[2017-10-27 20:00] VITALS: O2SAT 95
--- NOTE | 2017-10-27 20:27 | Progress Note ---
Medicine Progress Note Date & Time of Visit: Oct 27, 2017 at ~ 16:30 . Subjective CC: Follow-up visit for multiple problems. HPI: Doing well. No fever. Intermittent pain right upper extremity, but tends to be stoic. No chest pain, palpitations, SOB. No lower extremity pain. No dysuria. Articulating frustration regarding short-term memory deficits. Daughter visiting. ROS: General- no fever, no chills Resp- no cough; no shortness of breath Cardiac- noted above in HPI GI- no nausea, no vomiting, no diarrhea - as noted above in HPI . Objective Last 8 Hrs Date Time Temp Pulse Resp B/P (MAP) Pulse Ox O2 Delivery O2 Flow Rate FiO2 10/27/17 16:00 95 Room Air 10/27/17 14:55 36.7 76 16 145/78 (100) 95 Room Air Physical Exam: General- lying in bed; no distress Lungs- clear; no respiratory distress Cardiovascular- RRR, III/ sys murmur, no gallop; no JVD; 1+ pretibial edema Abdomen- + BS, soft, nontender Extremities- RUE immobilized; no cyanosis; no calf tenderness Neuro- alert, oriented essentially x 3, initially stated that it was 2017, but self-corrected to 2018 Skin- warm & dry, no erythema and warmth bilateral lower extremities . Assessment & Plan FALL Nature of fall uncertain. Monitoring for arrhythmias; has had some ectopy and occasional runs of PAT. Pacemaker interrogation requested. Orthostatic vital signs - no BP drop from supine to standing. Echo showed borderline severe . PT / OT. FRACTURE RIGHT HUMERUS Imaging by plain films and CT demonstrated comminuted and slightly displaced fracture involving the lateral aspect of the right humeral head and neck. Ortho consulted. Nonoperative management recommended. OSTEOPOROSIS Vitamin D level = 9. Replace. Follow. CELLULITIS LOWER EXTREMITIES Erythema and warmth bilateral lower extremities at time of admission, worse than baseline per daughter's observation. Afebrile. C-reactive protein slightly elevated. Improving. Transition from IV ceftriaxone to oral therapy with cephalexin. BACTERURIA / POSSIBLE UTI UA showed WBC's, bacteria, epithelial cells. No fever, no dysuria. Urine culture growing E coli. Patient had a fall and is more confused than baseline, so must assume that she is symptomatic from UTI. Transition from IV ceftriaxone to oral therapy with cephalexin. SYSTOLIC MURMUR Echo @ [facility] 10/21/10showed mild aortic stenosis (EVELYN 1.4 cm2). Follow-up echo @ [facility] [place] [facility] 09/09/16 showed moderate-severe aortic stenosis. Echo now shows borderline severe . Management per Cardiology. S/P PACEMAKER PLACEMENT Pacemaker interrogation performed. Device sensing and pacing appropriately. HYPERTENSION Follow and titrate Rx. HYPOTHYROIDISM TSH normal. Continue levothyroxine. DYSLIPIDEMIA Continue ezetimibe. URINARY SYMPTOMS Outpatient medication list includes mirabegron and solifenacin. Patient uncertain whether or not she is taking both at this time. Stopped mirabegron because of cardiac issues and solifenacin because of dementia. DEMENTIA Patient and her daughter indicate chronic problems with short-term memory, somewhat worse with current hospitalization. Continue donepezil. Monitor for delirium. Stopped solifenacin due to anticholinergic effects. VTE PROPHYLAXIS SCD' s ordered. Ambulate. DISPOSITION Anticipate need for skilled care or inpatient rehab. Family Medicine follow-up with Dr. Goncalves. Cardiology follow-up with Dr. Caceres. Daughter visiting and given update. . Current Inpatient Medications: Current Inpatient Medications Medications (Trade) Dose Ordered Sig/Anselmo Route Start Time Stop Time Status Last Admin Dose Admin Acetaminophen (Tylenol Tab) 650 mg Q4H PRN PO 10/23/17 01:30 11/22/17 01:29 Ketorolac Tromethamine (Toradol Inj) 15 mg Q6H PRN IV 10/23/17 01:30 10/28/17 01:29 10/25/17 00:18 15 MG Ceftriaxone Sodium 1 gm/ Dextrose 50 ml @ 100 mls/hr Q24H IV 10/24/17 01:00 11/01/17 01:29 10/27/17 00:28 100 MLS/HR EZETIMIBE (Zetia Tab) 10 mg DAILY PO 10/25/17 09:00 11/24/17 08:59 10/27/17 10:46 10 MG Levothyroxine Sodium (Synthroid Tab) 100 mcg DAILYBB PO 10/25/17 06:30 11/24/17 06:29 10/27/17 06:06 100 MCG Donepezil HCl (Aricept Tab) 5 mg HS PO 10/26/17 21:00 11/25/17 20:59 10/26/17 20:48 5 MG Polyethylene (Miralax Powder Packet) 17 gm BID PO 10/27/17 21:00 11/26/17 20:59
[2017-10-27] MEDS: POLYETHYLENE (MIRALAX) 17 GM PACK PO SCH (20:29)
[2017-10-27] MEDS: DONEPEZIL HCL 5 MG TAB PO SCH (20:30)
[2017-10-27 23:19] VITALS: BP 159/83; PULSE 78; TEMP 36.2; O2SAT 97
[2017-10-28] VITALS (11 sets, daily range): BP systolic 114–174; BP diastolic 64–81; PULSE 68–90; TEMP 36.5–36.9; O2SAT 94–95
[2017-10-28] MEDS: CEFTRIAXONE SOD INJ 1 GM in DEXTROSE 5% ADD-VANTAGE 50ML 50 ML IV SCH (00:32)
[2017-10-28] MEDS: LEVOTHYROXINE 100 MCG TAB PO SCH (06:01)
[2017-10-28] MEDS: POLYETHYLENE (MIRALAX) 17 GM PACK PO SCH ×2 (08:54→20:43)
[2017-10-28] MEDS: EZETIMIBE 10MG TAB PO SCH (08:55)
[2017-10-28] MEDS ORDERED: CEPHALEXIN MONOHYDRATE 500 MG CAP PO SCH (09:00)
[2017-10-28 17:28] LABS: CALCIUM 8.9 mg/dl (8.5-10.1); CREATININE 0.62 mg/dl (0.60-1.20); POTASSIUM 3.7 mmol/L (3.5-5.1)
[2017-10-28] MEDS ORDERED: POTASSIUM CHLORIDE 20 MEQ TABCR PO STA (17:44)
--- NOTE | 2017-10-28 18:32 | PROGRESS NOTE ---
DATE: 10/28/2017 The patient seen and examined. Chart, medications, telemetry reviewed. SUBJECTIVE: The patient notes no new complaints, is more oriented today. Notes no chest pain or discomfort. Notes no dizziness or lightheadedness. Anticipates discharge in a.m. I reviewed telemetry, revealed transient run of atrial fibrillation earlier today though with controlled ventricular response rate. No tachy or bradyarrhythmias. OBJECTIVE: VITAL SIGNS: Heart rate of 75, blood pressure of 174/72. NECK: Thin. There is no jugular venous distention. LUNGS: Clear. CARDIOVASCULAR: Regular, grade 2-3/6 systolic murmur. There is no diastolic murmur. ABDOMEN: Soft. EXTREMITIES: Free of edema. IMPRESSION: An 87-year-old female seen after fall and humeral fracture carries a history of multiple falls and prior pacemaker insertion for possible tachybrady syndrome concerns. Telemetry did demonstrate a short run of atrial fibrillation today. The patient's rates were controlled and there were no signs and symptoms of hemodynamic instability or rates to suggest such, would recommend supplementing potassium. Continue current therapies as prescribed. Would not initiate any further medications for now and patient has multiple anticoagulation contraindications. [facility]
[2017-10-28] MEDS: DONEPEZIL HCL 5 MG TAB PO SCH (20:41)
--- NOTE | 2017-10-28 20:59 | Progress Note ---
Medicine Progress Note Date & Time of Visit: Oct 28, 2017 at ~ 15:00 . Subjective CC: Follow-up visit for multiple problems. HPI: Does not feel well today. Tired. Nauseated. No fever, CP, SOB, urinary symptoms. PAF noted on telemetry. ROS: General- no fever, no chills Resp- no cough; no shortness of breath Cardiac- no CP or palpitations GI- as noted above in HPI - as noted above in HPI . Objective Last 8 Hrs Date Time Temp Pulse Resp B/P (MAP) Pulse Ox O2 Delivery O2 Flow Rate FiO2 10/28/17 20:00 95 Room Air 10/28/17 19:53 36.7 90 20 123/75 (91) 95 Room Air 10/28/17 16:00 94 Room Air 10/28/17 15:00 36.9 75 16 174/72 (106) 94 Room Air 10/28/17 14:26 36.7 72 18 95 Room Air Physical Exam: General- lying in bed; no acute distress Lungs- clear; no respiratory distress Cardiovascular- RRR, III/ sys murmur, no gallop; no JVD; 1+ pretibial edema Abdomen- + BS, soft, nontender Extremities- RUE immobilized; no cyanosis; no calf tenderness Neuro- alert Skin- warm & dry, no erythema or warmth bilateral lower extremities . Laboratory Results: Last 24 Hours Test 10/28/17 16:53 Sodium Level 136 mmol/L Potassium Level 3.7 mmol/L Chloride Level 103 mmol/L Carbon Dioxide Level 26 mmol/L Anion Gap 8.0 mmol/L Blood Urea Nitrogen 13 mg/dl Creatinine 0.62 mg/dl Est Creatinine Clear Calc Drug Dose 63.2 ml/min Estimated GFR () 93.3 Estimated GFR (Non- 80.5 BUN/Creatinine Ratio 21.1 Random Glucose 120 mg/dl Calcium Level 8.9 mg/dl Assessment & Plan FALL Nature of fall uncertain. Monitoring for arrhythmias; has had some ectopy and occasional runs of PAT and AF. Pacemaker interrogation requested; device sensing and pacing appropriately. Orthostatic vital signs - no BP drop from supine to standing. Echo showed borderline severe . PT / OT. FRACTURE RIGHT HUMERUS Imaging by plain films and CT demonstrated comminuted and slightly displaced fracture involving the lateral aspect of the right humeral head and neck. Ortho consulted. Nonoperative management recommended. OSTEOPOROSIS Vitamin D level = 9. Replace. Follow. CELLULITIS LOWER EXTREMITIES Erythema and warmth bilateral lower extremities at time of admission, worse than baseline per daughter's observation. Afebrile. C-reactive protein slightly elevated. Improving. Transitioned from IV ceftriaxone to oral therapy with cephalexin. Nausea today could be due to cephalexin; daughter reports GI intolerance to oral antibiotics. DC cephalexin and resume ceftriaxone; tentative course of therapy = 10 days. BACTERURIA / POSSIBLE UTI UA showed WBC's, bacteria, epithelial cells. No fever, no dysuria. Urine culture growing E coli. Patient had a fall and is more confused than baseline, so must assume that she is symptomatic from UTI. Antibiotic management as discussed above. SYSTOLIC MURMUR Echo @ [facility] 10/21/10showed mild aortic stenosis (EVELYN 1.4 cm2). Follow-up echo @ [facility] [place] [facility] 09/09/16 showed moderate-severe aortic stenosis. Echo now shows borderline severe . Management per Cardiology. S/P PACEMAKER PLACEMENT Pacemaker interrogation performed. Device sensing and pacing appropriately. HYPERTENSION Follow and titrate Rx. HYPOTHYROIDISM TSH normal. Continue levothyroxine. DYSLIPIDEMIA Continue ezetimibe. URINARY SYMPTOMS Outpatient medication list includes mirabegron and solifenacin. Patient uncertain whether or not she is taking both at this time. Stopped mirabegron because of cardiac issues and solifenacin because of dementia. DEMENTIA Patient and her daughter indicate chronic problems with short-term memory, somewhat worse with current hospitalization. Continue donepezil. Monitor for delirium. Stopped solifenacin due to anticholinergic effects. VTE PROPHYLAXIS SCD' s ordered. Ambulate. DISPOSITION Needs skilled care or inpatient rehab. [facility] has accepted patient. Family Medicine follow-up with Dr. Goncalves. Cardiology follow-up with Dr. Caceres. Daughter given update by phone. . Current Inpatient Medications: Current Inpatient Medications Medications (Trade) Dose Ordered Sig/Anselmo Route Start Time Stop Time Status Last Admin Dose Admin Acetaminophen (Tylenol Tab) 650 mg Q4H PRN PO 10/23/17 01:30 11/22/17 01:29 EZETIMIBE (Zetia Tab) 10 mg DAILY PO 10/25/17 09:00 11/24/17 08:59 10/28/17 08:55 10 MG Levothyroxine Sodium (Synthroid Tab) 100 mcg DAILYBB PO 10/25/17 06:30 11/24/17 06:29 10/28/17 06:01 100 MCG Donepezil HCl (Aricept Tab) 5 mg HS PO 10/26/17 21:00 11/25/17 20:59 10/28/17 20:41 5 MG Polyethylene (Miralax Powder Packet) 17 gm BID PO 10/27/17 21:00 11/26/17 20:59 10/27/17 20:29 17 GM Potassium Chloride (Klor-Con M10) 10 meq QAM PO 10/29/17 09:00 11/28/17 08:59
[2017-10-28] MEDS ORDERED: CEFTRIAXONE SOD INJ 1 GM in DEXTROSE 5% ADD-VANTAGE 50ML 50 ML IV SCH (22:00)
[2017-10-29] MEDS: LEVOTHYROXINE 100 MCG TAB PO SCH (05:55)
[2017-10-29 07:00] LABS: HEMATOCRIT 35.8 % (37-47); HEMOGLOBIN 11.4 g/dL (12.0-16.0); MEAN CELL VOLUME 93.2 fL (80-100); MEAN CORPUSCULAR HEMOGLOBIN 29.7 pg (25-34); MEAN CORPUSCULAR HGB CONC 31.8 g/dl (32-36); MEAN PLATELET VOLUME 10.4 fL (7.4-10.4); PLATELET COUNT 227 K/uL (130-400); RED CELL DISTRIBUTION WIDTH CV 14.9 % (11.5-14.5); RED CELL DISTRIBUTION WIDTH SD 50.8 fL (36.4-46.3); WHITE BLOOD COUNT 5.66 K/uL (4.8-10.8)
[2017-10-29 07:32] LABS: CALCIUM 8.6 mg/dl (8.5-10.1); CREATININE 0.55 mg/dl (0.60-1.20); POTASSIUM 3.7 mmol/L (3.5-5.1)
[2017-10-29 07:33] VITALS: BP 133/72; PULSE 72; TEMP 36.5; O2SAT 95
[2017-10-29] MEDS: POLYETHYLENE (MIRALAX) 17 GM PACK PO SCH (08:20)
[2017-10-29] MEDS: EZETIMIBE 10MG TAB PO SCH (08:57)
[2017-10-29] MEDS ORDERED: POTASSIUM CHLORIDE 10 MEQ TABCR PO SCH (09:00)
[2017-10-29] MEDS ORDERED: METOPROLOL SUCC 25MG EXT REL TAB PO ONE (11:00)
[2017-10-29 11:28] VITALS: BP 112/64; PULSE 86; TEMP 36.2; O2SAT 95
--- NOTE | 2017-10-29 13:47 | CARDIOLOGY PROGRESS NOTE ---
DATE: 10/29/2017 SUBJECTIVE: The patient has no complaints this morning. Telemetry once again has demonstrated short salvos of atrial fibrillation without elevated ventricular response rate, occasional ventricular ectopic beats, otherwise normally functioning pacemaker. OBJECTIVE: NECK: The patient on exam has no jugular venous distention or carotid bruits. LUNGS: Clear. CARDIOVASCULAR: Regular with a grade 2-3/6 systolic murmur. ABDOMEN: Soft, nontender. EXTREMITIES: Right arm is in a sling. Without cyanosis or clubbing. There is no peripheral edema. Pacemaker sites without irritation. LABORATORY DATA: This morning sodium is 138, potassium is 3.7, chloride is 105, bicarbonate is 27, BUN is 16, creatinine is 0.55. IMPRESSION: An 87-year-old female admitted after a fall, having fracture of arm noted on telemetry and in pacemaker interrogations incidental runs of short atrial tachycardia, atrial fibrillation, elevated ventricular response rates not significantly noted. Current event may have been precipitated by a urinary tract infection. We will recommend adding low dose beta kyree to regimen, metoprolol 12.5. The patient anticipates going to rehab where this may be monitored. Underlying issues also noted findings of [id number] severe aortic stenosis on echocardiogram on admission. We will make arrangements for patient to be seen in approximately 1 month's time for cardiology followup. Otherwise, findings as noted above.
--- NOTE | 2017-10-29 14:08 | Progress Note ---
Medicine Progress Note Date & Time of Visit: Oct 29, 2017 at 11:30 . Subjective CC: Follow-up visit for multiple problems. HPI: Feels well today- nausea and malaise experienced yesterday have resolved. No fever. Denies right upper extremity pain (but daughter notes intermittent discomfort). No chest pain, palpitations, SOB. No lower extremity pain. No dysuria. Frustrated regarding short-term memory deficits. ROS: General- no fever, no chills Resp- no cough; no shortness of breath Cardiac- noted above in HPI GI- no nausea, no vomiting, no diarrhea - as noted above in HPI . Objective Last 8 Hrs Date Time Temp Pulse Resp B/P (MAP) Pulse Ox O2 Delivery O2 Flow Rate FiO2 10/29/17 12:09 Room Air 10/29/17 11:28 36.2 86 16 112/64 (80) 95 Room Air 10/29/17 07:33 36.5 72 16 133/72 (92) 95 Room Air 10/29/17 07:20 Room Air Physical Exam: General- sitting in chair; no acute distress Lungs- clear; no respiratory distress Cardiovascular- RRR, III/ sys murmur, no gallop; no JVD; 2+ pretibial edema Abdomen- + BS, soft, nontender Extremities- RUE immobilized; no cyanosis; no calf tenderness Neuro- alert, oriented to person, place, year, president Skin- warm & dry, chronic venous changes bilateral lower extremities with mild erythema . Laboratory Results: Last 24 Hours Test 10/28/17 16:53 10/29/17 06:42 Sodium Level 136 mmol/L 138 mmol/L Potassium Level 3.7 mmol/L 3.7 mmol/L Chloride Level 103 mmol/L 105 mmol/L Carbon Dioxide Level 26 mmol/L 27 mmol/L Anion Gap 8.0 mmol/L 6.0 mmol/L Blood Urea Nitrogen 13 mg/dl 16 mg/dl Creatinine 0.62 mg/dl 0.55 mg/dl Est Creatinine Clear Calc Drug Dose 63.2 ml/min 71.2 ml/min Estimated GFR () 93.3 97.1 Estimated GFR (Non- 80.5 83.7 BUN/Creatinine Ratio 21.1 28.5 Random Glucose 120 mg/dl 108 mg/dl Calcium Level 8.9 mg/dl 8.6 mg/dl White Blood Count 5.66 K/uL Red Blood Count 3.84 M/uL Hemoglobin 11.4 g/dL Hematocrit 35.8 % Mean Corpuscular Volume 93.2 fL Mean Corpuscular Hemoglobin 29.7 pg Mean Corpuscular Hemoglobin Concent 31.8 g/dl RDW Standard Deviation 50.8 fL RDW Coefficient of Variation 14.9 % Platelet Count 227 K/uL Mean Platelet Volume 10.4 fL Assessment & Plan FALL Nature of fall uncertain. Monitoring for arrhythmias; has had some ectopy and occasional runs of PAT and AF. Pacemaker interrogation requested; device sensing and pacing appropriately. Orthostatic vital signs - no significant BP drop from supine to standing. Echo showed borderline severe . PT / OT. FRACTURE RIGHT HUMERUS Imaging by plain films and CT demonstrated comminuted and slightly displaced fracture involving the lateral aspect of the right humeral head and neck. Ortho consulted. Nonoperative management recommended. OSTEOPOROSIS Vitamin D level = 9. Received vitamin D 50,000 units on 10/26/17. Suggest continuing 50,000 units weekly until levels improve, then transition to daily dose of 1000 units daily. Add calcium in form of TUMS 500 BID. BACTERURIA / POSSIBLE UTI (present on admission) UA showed WBC's, bacteria, epithelial cells. No fever, no dysuria. Urine culture grew E coli. Patient had a fall and is more confused than baseline, so must assume that she is symptomatic from UTI. Initially received ceftriaxone, then transitioned to oral therapy with cephalexin. Experienced nausea after cephalexin started, so it was discontinued and nausea resolved. Resumed ceftriaxone to complete 10 day course of therapy for UTI and possible cellulitis. POSSIBLE CELLULITIS LOWER EXTREMITIES Erythema and warmth bilateral lower extremities at time of admission, worse than baseline per daughter's observation. Afebrile. C-reactive protein slightly elevated. Difficult to determine with certainty if physical findings due to cellulitis or only venous insufficiency. Receiving antibiotics as discussed above for suspected UTI. Follow exam. AORTIC STENOSIS Echo @ [facility] 10/21/10showed mild aortic stenosis (EVELYN 1.4 cm2). [place] [facility] [place] [facility] [place]16 showed moderate-severe aortic stenosis. Echo now shows borderline severe . Management per Cardiology. S/P PACEMAKER PLACEMENT Pacemaker interrogation performed. Device sensing and pacing appropriately. ARRHYTHMIA Noted to have runs of AF and PAT. Serum potassium low normal- replace & follow. Started on metoprolol succinate 12.5 mg daily. HYPERTENSION Blood pressures fluctuated. Started on metoprolol succinate 12.5 mg daily. HYPOTHYROIDISM TSH normal. Continue levothyroxine. DYSLIPIDEMIA Continue ezetimibe. URINARY SYMPTOMS Outpatient medication list includes mirabegron and solifenacin. Patient uncertain whether or not she is taking both at this time. Stopped mirabegron because of cardiac issues and solifenacin because of dementia. DEMENTIA Patient and her daughter indicate chronic problems with short-term memory, somewhat worse with current hospitalization. Continue donepezil. Monitor for delirium. Stopped solifenacin due to anticholinergic effects. VTE PROPHYLAXIS SCD' s ordered. Ambulate. DISPOSITION Unable to return home at this time due to fracture right humerus and falls. [facility] has accepted patient for inpatient rehab. Family Medicine follow-up with Dr. Goncalves. Cardiology follow-up with Dr. Caceres. . Consultants: Cardiology . Procedures: cardiac monitoring CT head CT cervical spine CT upper extremity echo PT OT . Current Inpatient Medications: Current Inpatient Medications Medications (Trade) Dose Ordered Sig/Anselmo Route Start Time Stop Time Status Last Admin Dose Admin Acetaminophen (Tylenol Tab) 650 mg Q4H PRN PO 10/23/17 01:30 11/22/17 01:29 EZETIMIBE (Zetia Tab) 10 mg DAILY PO 10/25/17 09:00 11/24/17 08:59 10/29/17 08:57 10 MG Levothyroxine Sodium (Synthroid Tab) 100 mcg DAILYBB PO 10/25/17 06:30 11/24/17 06:29 10/29/17 05:55 100 MCG Donepezil HCl (Aricept Tab) 5 mg HS PO 10/26/17 21:00 11/25/17 20:59 10/28/17 20:41 5 MG Polyethylene (Miralax Powder Packet) 17 gm BID PO 10/27/17 21:00 11/26/17 20:59 10/27/17 20:29 17 GM Potassium Chloride (Klor-Con M10) 10 meq QAM PO 10/29/17 09:00 11/28/17 08:59 10/29/17 08:20 10 MEQ Ceftriaxone Sodium 1 gm/ Dextrose 50 ml @ 100 mls/hr Q24H IV 10/28/17 22:00 11/07/17 21:59 10/28/17 22:18 100 MLS/HR Metoprolol Succinate (Toprol Xl Tab) 12.5 mg QAM PO 10/30/17 09:00 11/29/17 08:59
[2017-10-29] MEDS ORDERED: CEFT1INJ57 IV (14:19)
[2017-10-29] MEDS ORDERED: MRLP17X PO (14:19)
[2017-10-29] MEDS ORDERED: CALC500C3 PO (14:19)
[2017-10-29] MEDS ORDERED: ACET-1256 PO (14:19)
[2017-10-29] MEDS ORDERED: POTA10CA28 PO (14:19)
[2017-10-29] MEDS ORDERED: TPRSR25 PO (14:19)
[2017-10-29] MEDS ORDERED: ERGO500011 PO (14:19)
--- NOTE | 2017-10-29 14:26 | Discharge Instructions ---
Discharge Instructions Date of Service Oct 29, 2017. Admission Reason for Admission: fall, fracture right humeral head . Discharge Discharge Diagnosis / Problem: fall, fracture right humeral head, UTI, possible cellulitis Discharge Goals Goal(s): Decrease discomfort, Improve function, Increase independence, Improve disease control Activity Recommendations Activity Level: Assistance Required Therapies: Physical Therapy, Occupational Therapy no lifting right upper extremity . . Additional Information Patient informed of condition: Yes Advance Directives: No DNR: No Level of Care: Acute Rehab Communicable Disease: No Prognosis: Improving Bell Catheter: No Instructions / Follow-Up Instructions / Follow-Up FOLLOW-UP APPOINTMENTS ORTHOPEDICS Dr. Mullins in 1-2 weeks Please call his office for appointment. FAMILY MEDICINE Dr. Goncalves. Please arrange for appointment about 1 week after discharge from your facility. Thank you for receiving this patient in transfer. Please call if you have any questions. Jhon Gandhi . Current Hospital Diet Patient's current hospital diet: AHA Diet (Heart Healthy) Discharge Diet Recommended Diet: AHA Diet (Heart Healthy) Pending Studies Studies pending at discharge: no Physician Orders On Transfer Special Precautions: fall precautions delirium precautions no lifting / pulling right shoulder . IV Therapy: peripheral IV lock with saline flushes maintain for 4 days discontinue after last dose of ceftriaxone . Vital Signs: routine . Weigh: routine . Additional Orders: Immobilizer right upper extremity. Elevate legs q shift. Please check basic metabolic profile weekly. . Medical Emergencies . Who to Call and When: Medical Emergencies: If at any time you feel your situation is an emergency, please call 911 immediately. . Non-Emergent Contact Non-Emergency issues call your: Primary Care Provider, Finisher Brush, Hospital Doctor . . "Provider Documentation" section prepared by Jhon Gandhi. . Core Measure Problem Core Measures: None
--- NOTE | 2017-10-29 14:31 | Discharge Summary ---
Discharge Summary Date of Service Oct 29, 2017. Discharge Summary Admission Date: Oct 23, 2017 at 02:06 Discharge Date: Oct 29, 2017 Discharge Disposition: Rehab ([facility]) Principal Diagnosis: fracture right humeral head OTHER ACUTE DIAGNOSES: fall(s) urinary tract infection E coli possible cellulitis lower extremities cardiac arrhythmias- paroxysmal atrial tachycardia, paroxysmal atrial fibrillation . Secondary Diagnoses/Problems: Chronic and Resolved Medical Problems: (1) Ambulatory dysfunction Status: Chronic (2) Aortic stenosis Status: Chronic (3) Dementia Status: Chronic (5) Hypertension Status: Chronic (6) Hypothyroidism Status: Chronic (7) Osteoporosis Status: Chronic (9) Vitamin D deficiency Status: Chronic Surgical Problems: (1) Status post cardiac pacemaker procedure Status: Chronic . Procedures: cardiac monitoring CT head CT cervical spine CT upper extremity echo PT OT . Consultations: Cardiology . Medication Reconciliation New Medications: Acetaminophen (Tylenol) 500 Mg Tab 500 MG PO Q6 PRN for Pain for 30 Days, TAB Calcium Carbonate (Tums) 500 Mg Chew 500 MG PO BID for 30 Days, BTL New medication. Will need prescription at time of discharge from [facility] if it is to be continued. Ceftriaxone Sod (Rocephin) 1 Gm Inj 1 GM IV HS for 4 Days, #4 VIAL Discontinue 11/01/17 Ergocalciferol (Vitamin D 67928 Unit) 50,000 Unit Cap 52546 UNITS PO WK for 30 Days, CAP New medication. Will need prescription at time of discharge from [facility] if it is to be continued. Polyethylene (Miralax) 17 Gm Pow 17 GM PO DAILY PRN for Constipation, #1 BTL Potassium Chloride (Micro-K Ext Rel) 10 Meq Capcr 10 MEQ PO DAILY for 30 Days, #30 CAP Take with lunch. New medication. Will need prescription at time of discharge from [facility] if it is to be continued. Metoprolol Succinate (Metoprolol Succinate ER) 25 Mg Tabcr 12.5 MG PO QAM for 30 Days, #15 New medication. Will need prescription at time of discharge from [facility] if it is to be continued. Continued Medications: Donepezil HCl (Aricept) 5 Mg Tab 5 MG PO HS Ezetimibe (Zetia) 10 Mg Tab 10 MG PO DAILY, TAB Levothyroxine Sodium (Levothyroxine Sodium) 100 Mcg Tab 100 MCG PO DAILY Discontinued Medications: Mirabegron (Myrbetriq Er) 50 Mg Tab 50 MG PO, TAB Solifenacin (Vesicare) 10 Mg Tab 10 MG PO DAILY, TAB Admission Information HPI (per Admitting provider): This is a 87 year old female patient who fell. Based on review of the ED notes and conversation with the patient, it is unclear what had preceded the fall whether this was mechanical fall vs other reasons for falling down on her face. Patient does not know whether she lost consciousness of not. Head and cervical CT and negative for fracture per radiology. CT of right upper extremity with comminuted fracture of right femoral head/neck. Physical Exam (per Admitting): General Appearance: no apparent distress Head: normocephalic, atraumatic Eyes: normal inspection, EOMI, sclerae normal ENT: normal ENT inspection, hearing grossly normal, pharynx normal Neck: supple, no JVD, trachea midline Respiratory/Chest: chest non-tender, lungs clear, normal breath sounds, no respiratory distress, no accessory muscle use Cardiovascular: regular rate, rhythm, no edema, no JVD Abdomen/GI: normal bowel sounds, non tender, soft Extremities/Musculoskelatal: no calf tenderness, no pedal edema, + pertinent finding (can squeeze with right hand but cannot life right arm) Neurologic/Psych: alert, normal mood/affect, oriented x 3 Skin: normal color, warm/dry, no rash Hospital Course FALL Nature of fall uncertain. Monitoring for arrhythmias; has had some ectopy and occasional runs of PAT and AF. Pacemaker interrogation requested; device sensing and pacing appropriately. Orthostatic vital signs - no significant BP drop from supine to standing. Echo showed borderline severe . PT / OT. FRACTURE RIGHT HUMERUS Imaging by plain films and CT demonstrated comminuted and slightly displaced fracture involving the lateral aspect of the right humeral head and neck. Ortho consulted. Nonoperative management recommended. OSTEOPOROSIS Vitamin D level = 9. Received vitamin D 50,000 units on 10/26/17. Suggest continuing 50,000 units weekly until levels improve, then transition to daily dose of 1000 units daily. Add calcium in form of TUMS 500 BID. BACTERURIA / POSSIBLE UTI (present on admission) UA showed WBC's, bacteria, epithelial cells. No fever, no dysuria. Urine culture grew E coli. Patient had a fall and is more confused than baseline, so must assume that she is symptomatic from UTI. Initially received ceftriaxone, then transitioned to oral therapy with cephalexin. Experienced nausea after cephalexin started, so it was discontinued and nausea resolved. Resumed ceftriaxone to complete 10 day course of therapy for UTI and possible cellulitis. POSSIBLE CELLULITIS LOWER EXTREMITIES Erythema and warmth bilateral lower extremities at time of admission, worse than baseline per daughter's observation. Afebrile. C-reactive protein slightly elevated. Difficult to determine with certainty if physical findings due to cellulitis or only venous insufficiency. Receiving antibiotics as discussed above for suspected UTI. Follow exam. AORTIC STENOSIS Echo @ [facility] 10/21/10showed mild aortic stenosis (EVELYN 1.4 cm2). Follow-up echo @ [facility] [facility] 09/09/16 showed moderate-severe aortic stenosis. Echo now shows borderline severe . Management per Cardiology. S/P PACEMAKER PLACEMENT Pacemaker interrogation performed. Device sensing and pacing appropriately. ARRHYTHMIA Noted to have runs of AF and PAT. Serum potassium low normal- replace & follow. Started on metoprolol succinate 12.5 mg daily. HYPERTENSION Blood pressures fluctuated. Started on metoprolol succinate 12.5 mg daily. HYPOTHYROIDISM TSH normal. Continue levothyroxine. DYSLIPIDEMIA Continue ezetimibe. URINARY SYMPTOMS Outpatient medication list includes mirabegron and solifenacin. Patient uncertain whether or not she is taking both at this time. Stopped mirabegron because of cardiac issues and solifenacin because of dementia. DEMENTIA Patient and her daughter indicate chronic problems with short-term memory, somewhat worse with current hospitalization. Continue donepezil. Monitor for delirium. Stopped solifenacin due to anticholinergic effects. VTE PROPHYLAXIS SCD' s ordered. Ambulate. DISPOSITION Unable to return home at this time due to fracture right humerus and falls. [facility] has accepted patient for inpatient rehab. Family Medicine follow-up with Dr. Goncalves. Cardiology follow-up with Dr. Caceres. . Total time spent on discharge = 45 min. This includes examination of the patient, discharge planning, medication reconciliation, and communication with other providers. . Discharge Instructions Date of Service Oct 29, 2017. Admission Reason for Admission: fall, fracture right humeral head . Discharge Discharge Diagnosis / Problem: fall, fracture right humeral head, UTI, possible cellulitis Discharge Goals Goal(s): Decrease discomfort, Improve function, Increase independence, Improve disease control Activity Recommendations Activity Level: Assistance Required Therapies: Physical Therapy, Occupational Therapy no lifting right upper extremity . . Additional Information Patient informed of condition: Yes Advance Directives: No DNR: No Level of Care: Acute Rehab Communicable Disease: No Prognosis: Improving Bell Catheter: No Instructions / Follow-Up Instructions / Follow-Up FOLLOW-UP APPOINTMENTS ORTHOPEDICS Dr. Mullins in 1-2 weeks Please call his office for appointment. FAMILY MEDICINE Dr. Goncalves. Please arrange for appointment about 1 week after discharge from your facility. Thank you for receiving this patient in transfer. Please call if you have any questions. Jhon Gandhi . Current Hospital Diet Patient's current hospital diet: AHA Diet (Heart Healthy) Discharge Diet Recommended Diet: AHA Diet (Heart Healthy) Pending Studies Studies pending at discharge: no Physician Orders On Transfer Special Precautions: fall precautions delirium precautions no lifting / pulling right shoulder . IV Therapy: peripheral IV lock with saline flushes maintain for 4 days discontinue after last dose of ceftriaxone . Vital Signs: routine . Weigh: routine . Additional Orders: Immobilizer right upper extremity. Elevate legs q shift. Please check basic metabolic profile weekly. . Medical Emergencies . Who to Call and When: Medical Emergencies: If at any time you feel your situation is an emergency, please call 911 immediately. . Non-Emergent Contact Non-Emergency issues call your: Primary Care Provider, Surgical Instrument Technician, Hospital Doctor . . "Provider Documentation" section prepared by Jhon Gandhi. . Core Measure Problem Core Measures: None . Additional Copies To Dakota Caceres D.O.; China Goncalves D.O.; Fareed Mullins M.D.
[2017-10-30] MEDS ORDERED: METOPROLOL SUCC 25MG EXT REL TAB PO SCH (09:00)
== END 2017-10-29 15:42 | DRG 92 ==
LOC: EDBD 21:21 → C.EDC 21:23 → C.MSICU 10-23 02:06 → ENRESERV 10-23 17:09 → C.MED 10-23 18:18
PROVIDERS: ADMIT Hospitalist; ATTEND Hospitalist
DX: R29.6 Repeated falls (principal); L03.115 Cellulitis of right lower limb; L03.116 Cellulitis of left lower limb; N39.0 Urinary tract infection, site not specified; S42.291A Other displaced fracture of upper end of right humerus, initial encounter for closed fracture; I10 Essential (primary) hypertension; E03.9 Hypothyroidism, unspecified; E78.5 Hyperlipidemia, unspecified; F03.90 Unspecified dementia, unspecified severity, without behavioral disturbance, psychotic disturbance, mood disturbance, and anxiety; B96.20 Unspecified Escherichia coli [E. coli] as the cause of diseases classified elsewhere; Z91.81 History of falling; M81.0 Age-related osteoporosis without current pathological fracture; Z79.899 Other long term (current) drug therapy; Z95.0 Presence of cardiac pacemaker; W18.30XA Fall on same level, unspecified, initial encounter; Y92.008 Other place in unspecified non-institutional (private) residence as the place of occurrence of the external cause

== ENCOUNTER 2018-12-16 18:59 | Inpatient (IN) ==
[2018-12-16] MEDS ORDERED: SODIUM CHLORIDE 0.9% 1000ML 1,000 ML IV ONE (19:19)
[2018-12-16 20:14] LABS: Basophils # (auto) 0.04 K/uL (0-0.2); Basophils % (auto) 0.6 %; Eosinophils # (auto) 0.23 K/uL (0-0.5); Eosinophils % (auto) 3.3 %; Hemoglobin 13.3 g/dL (12.0-16.0); Immature Granulocytes # (auto) 0.01 K/uL (0.00-0.02); Immature Granulocytes % (auto) 0.1 %; Lymphocytes # (auto) 1.65 K/uL (1.2-3.4); Lymphocytes % (auto) 23.5 %; Mean Corpuscular Hgb Conc 32.4 g/dL (32-36); Mean Corpuscular Volume 94.3 fL (80-100); Mean Platelet Volume 10.7 fL (7.4-10.4); Monocytes # (auto) 0.75 K/uL (0.11-0.59); Monocytes % (auto) 10.7 %; Neutrophils # (auto) 4.33 K/uL (1.4-6.5); Neutrophils % (auto) 61.8 %; Platelet Count 241 K/uL (130-400); RDW Coefficient of Variation 14.3 % (11.5-14.5); Red Blood Count 4.35 M/uL (4.2-5.4); White Blood Count 7.01 K/uL (4.8-10.8)
[2018-12-16 20:24] LABS: Partial Thromboplastin Time 26.2 Seconds (21.0-31.0); Prothrombin Time 10.6 Seconds (9.0-12.0)
--- NOTE | 2018-12-16 20:25 | CT Scan Report ---
CT head/brain wo con CLINICAL HISTORY: 88 years-old Female with Stroke evaluation . Acute strokelike symptoms TECHNIQUE: Multiple axial CT images of the head were obtained without contrast. A dose lowering tech nique was utilized adhering to the principles of ALARA. CT DOSE: 638.56 mGycm COMPARISON: CT head 10/22/2017. FINDINGS: No acute intracranial hemorrhage, midline shift, intracranial mass, hydrocephalus, territorial ischem ia or abnormal extra-axial collection. Age-related involutional changes. Moderate white matter hypode nsities suggestive of chronic microvascular ischemic changes. Cerebral vascular calcifications are no hung. The calvarium is intact. Prior bilateral cataract repair. Mastoid air cells and middle ear cavities a re clear. Paranasal sinuses also appear clear. IMPRESSION: No acute intracranial abnormality. The above report was generated using voice recognition software. It may contain grammatical, syntax o r spelling errors. Electronically signed by: Antoni Cohen M.D. 12/16/2018 8:24 PM
[2018-12-16 20:29] LABS: Alanine Aminotransferase 18 U/L (12-78); Albumin Level 3.4 gm/dl (3.4-5.0); Aspartate Aminotransferase 20 U/L (15-37); BUN Creatinine Ratio 31.3 (10-20); Blood Urea Nitrogen 26 mg/dl (7-18); Calcium 8.6 mg/dl (8.5-10.1); Carbon Dioxide 30 mmol/L (21-32); Chloride 105 mmol/L (98-107); Creatinine Clr Calc Pharmacy 46.3 ml/min; Est GFR (African American) 72.5; Est GFR (Non-African American) 62.5; Glucose 111 mg/dl (70-99); Magnesium 2.2 mg/dl (1.8-2.4); Potassium 4.2 mmol/L (3.5-5.1); Sodium 141 mmol/L (136-145)
--- NOTE | 2018-12-16 20:33 | XRay Report ---
XR chest 1V portable HISTORY: 88 years-old Female ? tia acute strokelike symptoms COMPARISON: Chest radiographs 02/24/2017 TECHNIQUE: Portable AP view of the chest FINDINGS: Cardiomediastinal and hilar silhouettes appear unchanged. Stable positioning of the lead left subclav raymond pacer. Calcification of the thoracic aortic arch. Medial lung apices are secured by the patient's chin. There is no pneumothorax, or large pleural effusion, focal airspace consolidation or overt pul monary edema. Hyperinflated lungs with kyphotic flattening. Degenerative changes of the shoulders and spine. IMPRESSION: No acute process. The above report was generated using voice recognition software. It may contain grammatical, syntax o r spelling errors. Electronically signed by: Antoni Cohen M.D. 12/16/2018 8:32 PM
[2018-12-16 20:34] LABS: Albumin Globulin Ratio 0.8 (0.9-2); Alkaline Phosphatase 86 U/L (45-117); Bilirubin,Total 0.3 mg/dl (0.2-1); Globulin 4.4 gm/dl (2.5-4.0); Total Protein 7.8 gm/dl (6.4-8.2); Troponin I < 0.015 ng/ml (0-0.045)
[2018-12-16] MEDS ORDERED: ASPIRIN CHEW 324 MG PO STA (20:43)
[2018-12-16] MEDS ORDERED: NovoLIN-R INSULIN PER UNIT CHARGE IV STA (21:14)
--- NOTE | 2018-12-16 23:30 | Emergency Department Note ---
Entered by Hayden Narvaez acting as a scribe for Juan Diego Garcia DO History of Present Illness General Chief complaint: Visual Disturbance Stated complaint: LOST VISION IN LEFT EYE Source: patient and family History of Present Illness Onset (ago): hour(s) 1 Location: eyes (left) Pain Consistency: + other (persistent) Quality: + other (visual changes) Associated symptoms: + other (dizziness); no chest pain, no cough and no weakness The patient is an 88 year old female who presents to the Emergency Room with complaints of persistent visual changes in the left eye beginning about one hour ago. The patient�s daughter reports that at 18:15 tonight, the patient stopped eating and stated that part of the vision in her left eye was black. The patient states that her vision is not currently black, but the upper visual field of her left eye is blurred and �anthony like a TV.� She states that the bottom visual field is clear. The daughter reports that the patient has been shaking. The patient denies weakness, numbness, cough, chest pain, runny nose, abdominal pain, or urinary symptoms. The daughter states that she had a bowel movement today. The patient notes that she has been feeling dizzy. No other exacerbating or remitting factors. Home Medications Home Medications Medication Instructions Recorded Confirmed Type ezetimibe [Zetia] 10 mg PO DAILY 12/16/18 12/16/18 History levothyroxine 100 mcg PO DAILY 12/16/18 12/16/18 History Allergies Allergy/AdvReac Type Severity Reaction Status Date / Time adhesive Allergy Intermediate SKIN Verified 12/16/18 19:22 IRRITATION morphine Allergy Unknown CAN'T Verified 12/16/18 19:22 REMEMBER Sulfa (Sulfonamide Allergy Unknown CAN'T Verified 12/16/18 19:22 Antibiotics) REMEMBER Past Med/Surg History Medical History Cellulitis of leg, left (Acute) Aortic stenosis (Chronic) Hypertension (Chronic) Hypothyroidism (Chronic) Dementia (Chronic) Osteoporosis (Chronic) Vitamin D deficiency (Chronic) Ambulatory dysfunction (Chronic) Surgical History Status post cardiac pacemaker procedure (Chronic) Family History Other Family history non-contributory Social History Preferred Language: [place] Feels Safe at Home: Yes Smoking Status: Never smoker Review of Systems See HPI for pertinent positives & negatives. and A total of 10 systems reviewed and were otherwise negative Physical Exam Vital Signs Vital Signs - 24 hr 12/16/18 19:03 12/16/18 20:32 12/16/18 21:04 Temperature 36.5 C Temperature Source Oral Sepsis Recent Fever Within 48 Hours No Sepsis Action Taken by Nursing No Action Required Pulse Rate 110 H 87 Pulse Rate [Bilateral] 92 H Pulse Rate from SpO2 Sensor Pulse Rhythm Regular Pulse Rhythm [Bilateral] Regular Pulse Strength Normal Pulse Strength [Bilateral] Normal Respiratory Rate 20 18 20 Respiratory Effort / Characteristics Non-Labored Spontaneous Non-Labored Spontaneous Respiratory Depth Normal Normal Blood Pressure 177/75 H Blood Pressure [Left Arm] Blood Pressure Mean 109 Blood Pressure Mean [Left Arm] Blood Pressure Position Sitting Blood Pressure Position [Left Arm] Sitting Pulse Oximetry 97 96 Oxygen Delivery Method Room Air Room Air 12/16/18 21:05 12/16/18 21:32 12/16/18 21:38 Temperature Temperature Source Sepsis Recent Fever Within 48 Hours Sepsis Action Taken by Nursing Pulse Rate 89 81 Pulse Rate [Bilateral] Pulse Rate from SpO2 Sensor 89 84 Pulse Rhythm Pulse Rhythm [Bilateral] Pulse Strength Pulse Strength [Bilateral] Respiratory Rate 24 19 Respiratory Effort / Characteristics Respiratory Depth Blood Pressure 193/120 H Blood Pressure [Left Arm] 162/76 H Blood Pressure Mean 144 Blood Pressure Mean [Left Arm] 104 Blood Pressure Position Blood Pressure Position [Left Arm] Pulse Oximetry 96 95 Oxygen Delivery Method 12/16/18 22:57 Temperature Temperature Source Sepsis Recent Fever Within 48 Hours Sepsis Action Taken by Nursing Pulse Rate Pulse Rate [Bilateral] 82 Pulse Rate from SpO2 Sensor Pulse Rhythm Pulse Rhythm [Bilateral] Pulse Strength Pulse Strength [Bilateral] Respiratory Rate 20 Respiratory Effort / Characteristics Respiratory Depth Blood Pressure Blood Pressure [Left Arm] 166/97 H Blood Pressure Mean Blood Pressure Mean [Left Arm] 120 Blood Pressure Position Blood Pressure Position [Left Arm] Pulse Oximetry 95 Oxygen Delivery Method Room Air GENERAL: Sitting up in bed, alert, well appearing, well nourished, no distress, non-toxic EYE EXAM: normal conjunctiva. PERRL and EOM's intact. OROPHARYNX: no exudate, no erythema, lips, buccal mucosa, and tongue normal and mucous membranes are moist NECK: supple, no nuchal rigidity, no adenopathy, non-tender LUNGS: Clear to auscultation. Normal chest wall mechanics HEART: no murmurs, S1 normal and S2 normal ABDOMEN: abdomen soft, non-tender, normo-active bowel, sounds, no masses, no rebound or guarding. BACK: Back is symmetrical on inspection and there is no deformity, no midline tenderness, no CVA tenderness. SKIN: no rashes and no bruising UPPER EXTREMITIES: upper extremities are grossly normal. LOWER EXTREMITIES: No pitting edema. Left lower extremity has multiple scabs and some purple streaking without petechiae. NEURO EXAM: Normal sensorium, cranial nerves II-XII intact, normal speech, no weakness of arms, no weakness of legs. No drift. Finger to nose intact. Sensation intact. Procedures Free Text Procedures Slit Lamp Examination Indication:Blurry vision The Left eye was prepped with topical proparacaine. Slit lamp examination was performed in the standard fashion. Cornea appeared clear. Anterior chamber deep/quiet. Scleral injection not present. Discharge present. No foreign bodies noted. The patient tolerated the procedure well without complication. Course ED COURSE: Vital signs were reviewed and showed hypertension and tachycardia The patients medical record was reviewed The above diagnostic studies were performed and reviewed. ED treatments and interventions as stated above. 1909: The patient was evaluated in room D1B. A complete history and physical examination was performed. 2039: I consulted Dr. Jerry Huerta Neurology, who recommends a stroke work-up. 2045: I updated the patient on current results and the plan for hospitalization. 2047: The IOP of the left eye was 13. 2127: I consulted Dr. Felicia Arredondo Hospitalist. The patient will be reevaluated for hospitalization. Based on the patients age, coexisting illnesses, exam and lab findings the decision to treat as an inpatient was made. The patient remained stable while under my care. The patient will be evaluated for further management. Consultations Consultation #1: I consulted Dr. Jerry Huerta Neurology, who recommends a stroke work-up. Time: 20:40 Consultation #2: I consulted Dr. Felicia Arredondo [facility]. The patient will be reevaluated for hospitalization. Time: 21:28 Administered Medications Discontinued Medications Aspirin (Aspirin) 324 mg PO NOW STA Stop: 12/16/18 20:44 Last Admin: 12/16/18 21:00 Dose: 324 mg Documented by: [id number] Sodium Chloride (Nss 1000ml) 1,000 mls @ 999 mls/hr IV .Q1H1M ONE Stop: 12/16/18 20:19 Last Infusion: 12/16/18 21:33 Dose: 0 mls/hr Documented by: [id number] Admin: 12/16/18 20:30 Dose: 999 mls/hr Documented by: [id number] Insulin Human Regular (Novolin R U-100 Per Unit) 5 units IV NOW STA Stop: 12/16/18 21:15 Last Admin: 12/16/18 21:21 Dose: Not Given Documented by: [id number] Medical Decision Making Differential Diagnosis Differential Diagnosis includes but is not limited to ischemic stroke, hemorrhagic stroke, Narvaez's palsy, mass, neoplasm, migraine headache, seizure, subarachnoid hemorrhage, TIA, and transient global amnesia. Medical Records Attestation: I reviewed the patient's medical records. Home Medications Current Medication List: was personally reviewed by me Laboratory Data Attestation: I reviewed the patient's lab results. Result diagrams: 12/16/18 19:50 12/16/18 19:50 Lab Results 12/16/18 12/16/18 12/16/18 Range/Units 19:27 19:50 19:50 WBC 7.01 (4.8-10.8) K/uL RBC 4.35 (4.2-5.4) M/uL Hgb 13.3 (12.0-16.0) g/dL Hct 41.0 (37-47) % MCV 94.3 (80-100) fL MCH 30.6 (25-34) pg MCHC 32.4 (32-36) g/dL RDW Std Deviation 49.0 H (36.4-46.3) fL RDW Coeff of Jordy 14.3 (11.5-14.5) % Plt Count 241 (130-400) K/uL MPV 10.7 H (7.4-10.4) fL Immature Gran % (Auto) 0.1 % Neut % (Auto) 61.8 % Lymph % (Auto) 23.5 % [place] % (Auto) 10.7 % Eos % (Auto) 3.3 % Baso % (Auto) 0.6 % Immature Gran # (Auto) 0.01 (0.00-0.02) K/uL Neut # (Auto) 4.33 (1.4-6.5) K/uL Lymph # (Auto) 1.65 (1.2-3.4) K/uL [place] # (Auto) 0.75 H (0.11-0.59) K/uL Eos # (Auto) 0.23 (0-0.5) K/uL Baso # (Auto) 0.04 (0-0.2) K/uL PT 10.6 (9.0-12.0) Seconds INR 1.0 (0.9-1.1) APTT 26.2 (21.0-31.0) Seconds PTT Ratio 1.0 Sodium (136-145) mmol/L Potassium (3.5-5.1) mmol/L Chloride (98-107) mmol/L Carbon Dioxide (21-32) mmol/L Anion Gap (3-11) BUN (7-18) mg/dl Creatinine (0.6-1.2) mg/dl Est Cr Clr Drug Dosing ml/min Est GFR ( Amer) Est GFR (Non-Af Amer) BUN/Creatinine Ratio (10-20) Glucose (70-99) mg/dl POC Glucose 118 H (70-99) Calcium (8.5-10.1) mg/dl Magnesium (1.8-2.4) mg/dl Total Bilirubin (0.2-1) mg/dl AST (15-37) U/L ALT (12-78) U/L Alkaline Phosphatase (45-117) U/L Troponin I (0-0.045) ng/ml Total Protein (6.4-8.2) gm/dl Albumin (3.4-5.0) gm/dl Globulin (2.5-4.0) gm/dl Albumin/Globulin Ratio (0.9-2) 12/16/18 Range/Units 19:50 WBC (4.8-10.8) K/uL RBC (4.2-5.4) M/uL Hgb (12.0-16.0) g/dL Hct (37-47) % MCV (80-100) fL MCH (25-34) pg MCHC (32-36) g/dL RDW Std Deviation (36.4-46.3) fL RDW Coeff of Jordy (11.5-14.5) % Plt Count (130-400) K/uL MPV (7.4-10.4) fL Immature Gran % (Auto) % Neut % (Auto) % Lymph % (Auto) % [place] % (Auto) % Eos % (Auto) % Baso % (Auto) % Immature Gran # (Auto) (0.00-0.02) K/uL Neut # (Auto) (1.4-6.5) K/uL Lymph # (Auto) (1.2-3.4) K/uL [place] # (Auto) (0.11-0.59) K/uL Eos # (Auto) (0-0.5) K/uL Baso # (Auto) (0-0.2) K/uL PT (9.0-12.0) Seconds INR (0.9-1.1) APTT (21.0-31.0) Seconds PTT Ratio Sodium 141 (136-145) mmol/L Potassium 4.2 (3.5-5.1) mmol/L Chloride 105 (98-107) mmol/L Carbon Dioxide 30 (21-32) mmol/L Anion Gap 6.0 (3-11) BUN 26 H (7-18) mg/dl Creatinine 0.83 (0.6-1.2) mg/dl Est Cr Clr Drug Dosing 46.3 ml/min Est GFR ( Amer) 72.5 Est GFR (Non-Af Amer) 62.5 BUN/Creatinine Ratio 31.3 H (10-20) Glucose 111 H (70-99) mg/dl POC Glucose (70-99) Calcium 8.6 (8.5-10.1) mg/dl Magnesium 2.2 (1.8-2.4) mg/dl Total Bilirubin 0.3 (0.2-1) mg/dl AST 20 (15-37) U/L ALT 18 (12-78) U/L Alkaline Phosphatase 86 (45-117) U/L Troponin I < 0.015 (0-0.045) ng/ml Total Protein 7.8 (6.4-8.2) gm/dl Albumin 3.4 (3.4-5.0) gm/dl Globulin 4.4 H (2.5-4.0) gm/dl Albumin/Globulin Ratio 0.8 L (0.9-2) Imaging Data Radiologist's Impression: Radiology results as stated below per my review and the radiologist's interpretation: XR chest 1V portable HISTORY: 88 years-old Female ? tia acute strokelike symptoms COMPARISON: Chest radiographs 02/24/2017 TECHNIQUE: Portable AP view of the chest FINDINGS: Cardiomediastinal and hilar silhouettes appear unchanged. Stable positioning of the lead left subclavian pacer. Calcification of the thoracic aortic arch. Medi al lung apices are secured by the patient's chin. There is no pneumothorax, or large pleural effusion, focal airspace consolidation or overt pulmonary edema. Hyperinflated lungs with kyphotic flattening. Degenerative changes of the shoulders and spine. IMPRESSION: No acute process. The above report was generated using voice recognition software. It may contain grammatical, syntax or spelling errors. Electronically signed by: Antoni Cohen M.D. 12/16/2018 8:[address] head/brain wo con CLINICAL HISTORY: 88 years-old Female with Stroke evaluation . Acute strokelike symptoms TECHNIQUE: Multiple axial CT images of the head were obtained without contrast. A dose lowering technique was utilized adhering to the principles of ALARA. CT DOSE: 638.56 mGycm COMPARISON: CT head 10/22/2017. FINDINGS: No acute intracranial hemorrhage, midline shift, intracranial mass, hydrocephalu s, territorial ischemia or abnormal extra-axial collection. Age-related involutional changes. Moderate white matter hypodensities suggestive of chronic microvascular ischemic changes. Cerebral vascular calcifications are noted. The calvarium is intact. Prior bilateral cataract repair. Mastoid air cells and middle ear cavities are clear. Paranasal sinuses also appear clear. IMPRESSION: No acute intracranial abnormality. The above report was generated using voice recognition software. It may contain grammatical, syntax or spelling errors. Electronically signed by: Antoni Cohen M.D. 12/16/2018 8:24 PM ECG Data Attestation: I personally reviewed and interpreted this ECG as follows: Indication: other (visual changes) Rate (beats per minute): 100 Rhythm: other (ventricular paced) Findings: + ST depression (high lateral leads), + T-wave inversion (high lateral leads) and + left axis deviation Comparison ECG Date: from (10/28/17) Change: the following changes noted (ST depression and T-wave inversion in high lateral leads are new, ventricular-paced rhythm is old) Blood Pressure Blood Pressure Findings: Elevated blood pressure Blood Pressure Disposition: further management by hospitalist EMELIA Narrative Patient is an 88-year-old female who presents the ER for blurry vision/loss of vision and dizziness. Around 6 PM she notes that she had loss of vision in her left eye in the upper visual field. She notes that it has since then become blurry. She notes that she does feel dizzy. She denies any other focal deficits. Vitals do suggest that she is slightly hypertensive. Labs show no si gnificant leukocytosis or anemia. INR is unremarkable. BMP along with LFTs bilirubin and troponin was unremarkable. She did have some mild erythema of the left lower extremity associated with some scabs. I do question overlying cellulitis versus venous stasis. CT head and chest x-ray were unremarkable. Discussed case with neurology as she had an atypical story. As this include the upper portion of her visual field this would not suggest venous or arterial occlusion. She has no eye pain. IOP was 13 in the left eye. Slit-lamp exam performed by myself was unremarkable. She was dizzy and did question possible occipital infarct. After discussion with neurology we made the decision to bring the patient. Patient and family members were updated at bedside. Patient is not a TPA candidate at this time. Of note the patient also had some high lateral nonspecific ST wave changes without any chest pain or shortness of breath. Impression & Plan Dizziness, Change in vision, Acute electrocardiogram changes, Cellulitis Discharge Plan Visit Data *Final* Discharge Date/Time: 12/16/18 23:09 Chief Complaint: Visual Disturbance Stated Complaint: LOST VISION IN LEFT EYE ED Provider: Juan Diego Garcia Discharge Problem: Dizziness, Change in vision, Acute electrocardiogram changes, Cellulitis Patient Disposition: Admitted As Inpatient Discharge Instructions Interventions: ED Discharge Assessment Last Done: 12/16/18 23:09 Discharge Problem: Cellulitis Qualifiers: Site of cellulitis: extremity Site of cellulitis of extremity: lower extremity Laterality: left Qualified Code(s): L03.116 - Cellulitis of left lower limb The scribe's documentation has been prepared under my direction and personally reviewed by me in its entirety. I confirm that the note above accurately reflects all work, treatment, procedures, and medical decision making performed by me.
[2018-12-17] MEDS ORDERED: POLYETHYLENE (MIRALAX) 17 GM PACK PO PRN (00:29)
[2018-12-17] MEDS ORDERED: PHARMACIST DISCHARGE MED REC CONSULT PRN (00:29)
[2018-12-17] MEDS ORDERED: SODIUM CHLORIDE 0.9% 1000ML 1,000 ML IV SCH (00:29)
[2018-12-17] MEDS ORDERED: ALUMINUM/MAGNESIUM SUSP 30 ML UDC PO PRN (00:29)
[2018-12-17] MEDS ORDERED: ACETAMINOPHEN 325 MG TAB PO PRN (00:29)
[2018-12-17] MEDS ORDERED: NITROGLYCERIN SL 0.4 MG/TAB TAB SL PRN (00:29)
[2018-12-17] MEDS ORDERED: ONDANSETRON INJ 2 MG/ML 2 ML VIAL IV PRN (00:29)
--- NOTE | 2018-12-17 01:38 | History and Physical Report ---
DATE OF ADMISSION: 12/16/2018 CHIEF COMPLAINT: Left vision disturbance. HISTORY OF PRESENT ILLNESS: This is an 88-year-old female with past medical history significant for hypothyroidism, paroxysmal atrial tachycardia, paroxysmal atrial fibrillation, history of aortic stenosis and AV block status post permanent pacemaker, history of cellulitis, presents with left eye vision loss. The patient also some dementia and oriented to name and place only. Lives with her daughter, walks with a cane. Does okay with walking. Today around 6 o'clock during the dinnertime, she complained of some vision loss in the left eye and she was brought to the hospital hospital. One of the grandson is anesthesiologist and he called the ER. Initially stroke alert was not called as symptoms seemed to be improving and she had only vision problem in her 1 eye, but later when went to see the patient her grandson who was a physician was on phone with patient's daughter and was asking whether to do tPA or not, , but by that time this was already close to 4 hours and rechecked with the neurologist on-call and was advised that the episode was mostly retinal artery occlusion, for which tPA was not done or we can call a stroke alert. At that time, when I explained to the grandson about the issue and he seemed ok with the explanation and also by that time 4hrs has elapsed. Patient is alert. Her mental status is baseline. When I asked to close her right eye and see from the left eye, she complains that it is all blurry. She could with both eyes open, . Movements of the eyes, is okay. Denies any headache, no chest pain, no shortness of breath, no difficulty swallowing. No nausea, no cough, no fever or chills, no abdominal pain. Normal bowel and bladder movements. Currently, resting comfortably and hemodynamically stable. No diarrhea. The patient also has erythema in her left lower extremity. The daughter says patient does not allow to check her, apparently patient dresses herself and she did not tell anything about the erythema in her left lower extremity and it was found in the ER. She was treated for cellulitis last year. ALLERGIES: SULFA ANTIBIOTICS. PAST MEDICAL HISTORY: As mentioned above. PAST SURGICAL HISTORY: Status post pacemaker. MEDICATIONS: The patient is on Zetia 10 mg p.o. daily, levothyroxine 100 mcg p.o. daily. FAMILY HISTORY: No family history on file. SOCIAL HISTORY: , lives with her daughter. No smoking, no alcohol. REVIEW OF SYMPTOMS: As per HPI. Rest of review of symptoms negative. PHYSICAL EXAMINATION: GENERAL: The patient is old and frail, not in acute distress. VITAL SIGNS: Temperature 36.5, pulse 81, respiratory rate 19, blood pressure 162/76, oxygen 95% room air. HEENT: No scleral icterus. Pupils equal, round and react to light. NECK: No JVD, no neck masses. CARDIOVASCULAR: S1, S2 heard, ejection systolic murmur present. RESPIRATORY SYSTEM: Clear to auscultation bilaterally. No wheezing, no crackles. ABDOMEN: Soft, bowel sounds present. Nontender. No distention. CENTRAL NERVOUS SYSTEM: Blurred vision on the left eye. Power 5/5 in all extremities. No pronator drift. Coordination of movements normal. Sensation is intact. Alert and oriented x2. EXTREMITIES: Lower extremity edema present. Left lower extremity is erythematous and warm to touch. LABORATORIES: WBC 7, hemoglobin 13.3, hematocrit 41, platelets 241. PT 10.6, INR 1, APTT 26.2. Sodium 141, potassium 4.2, chloride 105, bicarb 30, BUN 26, creatinine 0.8, serum glucose 111, calcium 8.6, magnesium 2.2, total bilirubin 0.3, AST 20, ALT 18, alkaline phosphatase 86, troponin I less than 0.015. CT of the head, no acute intracranial abnormalities seen. Chest x-ray: No acute process seen. EKG: Initial EKG showed ventricular rate of 150, ventricular paced rhythm. ASSESSMENT AND PLAN: This is an 88-year-old female who presents with left vision disturbance. 1. Left vision problem sine around [address] of the head is negative. 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 Family was concerned and asked about TPA Discussed with neurology and was advised it was mostly retinal artery occlusion and also only one eye involved tpa is not suggested for which family was ok at that time. Received aspirin in the Emergency Room. We will continue with aspirin, high dose statin. Follow CTA of the head and neck, echocardiogram. ESR and CRP. Physical therapy, occupation therapy and speech evaluation. Could not get MRI because of pacemaker. Closely monitor on tele floor. Neurology consult. Later also talked with Joan neurologist construction equipment technician. As the patient is already out of window of 4.5hrs no intraarterial tpa can be done but recommended CTA head and neck and ophthalmology consult. Spoke with ophthalmology construction equipment technician and was told no tpa for retinal artery occlusion and to follow with them when discharged and call them for any new changes. 2. History of aortic stenosis and atrioventricular block status post pacemaker. Follows with cardiology. 3. History of atrial tachycardia and atrial fibrillation. Supposed to be on Toprol-XL, but is not on that medication. Started on aspirin and because of the above symptoms, consult cardiology for further recommendations. 4. Hypothyroidism. Continue Synthroid. 5. Hyperlipidemia. We will stop Zetia and place on high dose Lipitor. Follow the fasting lipid profile. 6. Deep venous thrombosis prophylaxis, sequential compression devices for now. DISPOSITION: Closely monitoring in tele floor. PT and OT prior to discharge. Social service to help with discharge planning. Level I full code. MTDD
[2018-12-17] MEDS ORDERED: ANCEF PHARMACY CONSULT IN PROGRESS PRN (02:02)
[2018-12-17] MEDS: CEFAZOLIN 2000MG 2,000 MG/15 ML SYR IV SCH ×3 (02:05→18:05)
[2018-12-17] MEDS: LEVOTHYROXINE SODIUM 100 MCG TABLET PO SCH (06:00)
[2018-12-17 06:39] LABS: Basophils # (auto) 0.02 K/uL (0-0.2); Basophils % (auto) 0.3 %; Eosinophils # (auto) 0.18 K/uL (0-0.5); Eosinophils % (auto) 2.7 %; Hematocrit (blood only) 38.3 % (37-47); Hemoglobin 12.3 g/dL (12.0-16.0); Lymphocytes # (auto) 2.16 K/uL (1.2-3.4); Lymphocytes % (auto) 32.6 %; Mean Corpuscular Hgb Conc 32.1 g/dL (32-36); Mean Corpuscular Volume 93.4 fL (80-100); Mean Platelet Volume 10.6 fL (7.4-10.4); Monocytes # (auto) 0.69 K/uL (0.11-0.59); Monocytes % (auto) 10.4 %; Neutrophils # (auto) 3.57 K/uL (1.4-6.5); Platelet Count 219 K/uL (130-400); RDW Coefficient of Variation 14.3 % (11.5-14.5); RDW Standard Deviation 48.6 fL (36.4-46.3); White Blood Count 6.62 K/uL (4.8-10.8)
--- NOTE | 2018-12-17 06:46 | Hospitalist Progress Note ---
Date of Service December 17, 2018 Assessment & Plan (1) Cellulitis: left lower extremity cellulitis present on admission started on iv ancef. follow doppler follow response for abx. Present on Admission?: Yes Physical Exam Vital Signs (Past 24 Hours): Last Vital Signs Temp 36.3 C L 12/17/18 05:00 Pulse 73 12/17/18 05:00 Resp 18 12/17/18 05:00 BP 147/77 H 12/17/18 05:00 Pulse Ox 95 12/17/18 05:00 (1) Cellulitis Laterality: left Site of cellulitis: extremity Site of cellulitis of extremity: lower extremity Qualified Code(s): L03.116 - Cellulitis of left lower limb
[2018-12-17 07:02] LABS: Estimated Average Glucose 126 mg/dl
[2018-12-17 07:18] LABS: Blood Urea Nitrogen 18 mg/dl (7-18); Calcium 7.9 mg/dl (8.5-10.1); Carbon Dioxide 26 mmol/L (21-32); Chloride 108 mmol/L (98-107); Creatinine Clr Calc Pharmacy 59.6 ml/min; Est GFR (African American) 91.2; Est GFR (Non-African American) 78.7; Glucose 99 mg/dl (70-99); Sodium 140 mmol/L (136-145)
[2018-12-17 07:21] LABS: C Reactive Protein < 0.29 mg/dl (0-0.29); Chol HDL Ratio 3; Cholesterol 181 mg/dl (0-200); HDL Cholesterol 56 mg/dl; LDL Cholesterol Calculated 105 mg/dl; Triglycerides 100 mg/dl (0-150); VLDL Cholesterol 20 mg/dl
[2018-12-17] MEDS: ATORVASTATIN 40 MG TAB PO SCH (08:26)
[2018-12-17] MEDS: ASPIRIN 81 MG ECTAB PO SCH (08:26)
--- NOTE | 2018-12-17 09:25 | Neurology Consultation ---
Date of Consultation December 17, 2018 Assessment & Plan (1) Change in vision: This patient's reported history is potentially suggestive of amaurosis fugax to the left eye. I wonder if she may have a branch retinal artery occlusion. An occipital lobe infarct is possible but would seem less likely given the reported altitudinal monocular vision loss. Of note, this patient denies any acute change in her vision at this time and seems to have no recollection of her assessment in the emergency department yesterday. She appears to have a dementia at baseline which makes her an unreliable historian. Her CT of the head was negative for any acute process. CT angiography is pending. The moderate elevation in her sedimentation rate is probably related to her active cellulitis. She does not have headache or other signs or symptoms suggestive of temporal arteritis. She will be unable to have an MRI completed as she has a permanent cardiac pacemaker. I agree with the addition of daily low-dose aspirin and atorvastatin to her medication regimen. She will need an outpatient ophthalmology consultation. Please contact me if I may be of further assistance the. History of Present Illness Reason for Consultation: Left eye vision loss Requesting Physician: Dr. Duarte Attending Physician: Femi Zhang MD History of Present Illness The patient is an 88-year-old female who presented to the emergency department last night complaining of vision loss to the left eye only which began about 1 hour prior to arrival. The vision loss was painless and affected the upper part of her visual field only. While in the emergency department the patient reported that the upper field of view for her left eye appeared anthony and blurry. She denies experiencing any vision changes with the right eye. She did report some associated dizziness. I discussed her case with the emergency department physician over the phone last night as well as the admitting hospitalist. Her symptoms were not felt to be clearly related to a stroke in the brain but seem more consistent with retinal artery ischemia, possibly a retinal artery branch occlusion or amaurosis fugax. A CT of the head was negative for hemorrhage or any acute process. I reviewed the images as well as the radiologist's interpretation of this test. Electrocardiogram revealed a paced rhythm. I had recommended obtaining a CT angiogram of the head and neck for further assessment as well as a sedimentation rate. The CT angiography is pending at this time. The sedimentation rate is 38 although the patient does have active cellulitis of the left lower extremity. Upon evaluating the patient this morning, she ac tually denies any acute change in her vision and seems to have very poor recollection of her assessment in the emergency department. She complains primarily of her left lower extremity cellulitis and states that she has always had vision problems affecting the left eye. Past medical history notable for dementia and she appears to be a very unreliable historian. Daily low-dose aspirin and Lipitor have been started during this hospitalization. Per the admission history this patient's past medical history is also notable for paroxysmal atrial fibrillation, paroxysmal atrial tachycardia, history of aortic stenosis and AV block, and status post permanent pacemaker. Allergies Allergy/AdvReac Type Severity Reaction Status Date / Time adhesive Allergy Intermediate SKIN Verified 12/16/18 19:22 IRRITATION morphine Allergy Unknown CAN'T Verified 12/16/18 19:22 REMEMBER Sulfa (Sulfonamide Allergy Unknown CAN'T Verified 12/16/18 19:22 Antibiotics) REMEMBER Home Medications Home Medications Medication Instructions Recorded Confirmed Type ezetimibe [Zetia] 10 mg PO DAILY 12/16/18 12/16/18 History levothyroxine 100 mcg PO DAILY 12/16/18 12/16/18 History Patient History Medical History Cellulitis of leg, left (Acute) Aortic stenosis (Chronic) Hypertension (Chronic) Hypothyroidism (Chronic) Dementia (Chronic) Osteoporosis (Chronic) Vitamin D deficiency (Chronic) Ambulatory dysfunction (Chronic) Surgical History Status post cardiac pacemaker procedure (Chronic) Family History Other Family history non-contributory Social History Preferred Language: Greek Communication Ability: Effective Command And Control Specialist Required: No Beliefs That Will Affect Care: None Current Living Situation: Family Other Information That Helps Us Care for You: No Feels Safe at Home: Yes Smoking Status: Unknown if ever smoked Hx Alcohol Use: No Hx Substance Use: No Review of Systems Constitutional: no fever Eyes: as per Subjective / HPI Ear, Nose, Mouth, Throat: no hearing loss Respiratory: no cough and no dyspnea Cardiovascular: no chest pain Gastrointestinal: no abdominal pain and no nausea Genitourinary (Female): no dysuria Musculoskeletal: no myalgia Integumentary: + change in skin color Left lower extremity cellulitis noted Neurologic: as per Subjective / HPI Psychiatric: + behavioral changes Hematologic / Lymphatic: no easy bleeding Physical Exam Vital Signs (Past 24 Hours): Last Vital Signs Temp 36.9 C 12/17/18 07:00 Pulse 74 12/17/18 07:00 Resp 18 12/17/18 07:00 BP 153/80 H 12/17/18 07:00 Pulse Ox 95 12/17/18 07:00 Physical Exam: The patient is a well-developed elderly female. She is sitting up comfortably in bed in no acute distress. She is alert and oriented to person and place only. Recent memory impaired. Remote memory intact. Attention normal. Concentration impaired. Patient exhibits a normal spontaneous speech pattern. She is able to name objects and repeat phrases. She exhibits an age-appropriate fund of knowledge in terms of vocabulary. The visual field for the right eye is grossly full with confrontation testing. The visual field for the left eye is somewhat limited peripherally and superiorly. She also has some difficulty with finger count on the left. Finger counting on the right is intact. Pupils equal round reactive to light and accommodation. Eye movements intact. Facial sensation intact. There is normal facial symmetry and strength. Hearing intact. Palate elevates to midline. Shoulder shrug strength intact. Tongue protrudes to midline. Sensation intact to all modalities in all 4 limbs. Deep tendon reflexes intact and symmetrical for the arms and legs. Plantar responses downgoing. There is no Dysdiadochokinesia or dysmetria of qfoalj-ct-boyf or heel to hall bilaterally. Direct ophthalmoscopic examination was difficult. I was able to visualize the optic nerves as well as the retinal vessels to a limited degree. However, poor patient cooperation limited this examination. I do not appreciate any obvious papilledema or retinal hemorrhages. Carotid pulses normal bilaterally, no bruits to auscultation. Gait and station not tested due to safety concerns. Patient exhibits normal muscle strength and tone for all 4 limbs. No atrophy. No abnormal movements observed.
[2018-12-17] MEDS ORDERED: OPTIRAY 320 125ml IV PRN (11:36)
--- NOTE | 2018-12-17 12:05 | CT Scan Report ---
CT ANGIOGRAM OF THE BRAIN; CT ANGIOGRAM OF THE NECK CLINICAL HISTORY: Strokelike symptoms. COMPARISON STUDY: Unenhanced CT of the brain performed 12/16/2018. CT scan of the cervical spine dated 10/22/2017. TECHNIQUE: Following the IV administration of 123 of Optiray 320, CT angiogram of the head and neck w as performed from the aortic arch to the vertex. Images are reviewed in the axial, sagittal, and redd nal planes. 3-D MIPS images are created and assessed. IV contrast was administered without complicati on. All measurements were calculated based on NASCET criteria. A dose lowering technique was utilize d adhering to the principles of ALARA. CT DOSE: 499.81 mGy.cm FINDINGS: Brain parenchyma: There is age-related involutional change noting moderate subcortical and periventri cular microhepatic disease. There is no hemorrhage, mass effect, or evidence of acute territorial isc hemia by CT criteria. There is no evidence of enhancing mass lesion on the angiogram phase images. Th e ventricles, sulci, and cisterns are prominent secondary to involutional change. Morrison-white matter d ifferentiation is preserved. No extra-axial fluid collection is seen. Thoracic aorta: Visualized portions of the thoracic aorta are normal in caliber. The aortic arch demo nstrates standard 3-vessel anatomy. Right carotid arterial system: The right common carotid artery is widely patent, as are the right int ernal and external carotid arteries. Atherosclerotic plaque is noted in the carotid bulb. Left carotid arterial system: The left common carotid artery is widely patent, as are the left customer operations intern al and external carotid arteries. Atherosclerotic calcification is noted in the carotid bulb. Vertebral arteries: The vertebral arteries are widely patent and codominant. Subclavian arteries: Widely patent bilaterally. Intracranial vasculature: There is atherosclerotic calcification of the cavernous carotid arteries. T here is a large right posterior communicating artery. The internal carotid arteries are patent at the skull base, as are the anterior and middle cerebral arteries bilaterally. The vertebrobasilar system and posterior cerebral arteries are widely patent. The vertebral arteries are codominant. There is n o aneurysm, high-grade stenosis, or focal vessel cut off seen throughout the intracranial circulation . Jugular veins: Widely patent bilaterally. Dural sinuses: Patent. Lung apices: Partially visualized upper lobe lung parenchyma appears clear. A cardiac pacemaker is pa rtially imaged in the left anterior chest wall. Soft tissues: The visualized pharyngeal soft tissues are normal in appearance noting angiographic pha se technique. The oropharyngeal airway appears widely patent. The salivary and thyroid glands are nor mal in appearance. No cervical lymphadenopathy is seen. Orbits: The bony orbits are intact. Orbital contents are normal in appearance noting bilateral ocular lens implants. Skeletal structures: The skeletal structures are osteopenic. The calvarium appears intact. The cervic al spine is maintained noting multilevel spondylosis. No lytic or blastic lesion is identified. Sinuses and mastoids: The paranasal sinuses are clear. The mastoid air cells are well pneumatized. IMPRESSION: 1. There is no hemorrhage, mass effect, or evidence of acute territorial ischemia by CT criteria on t his angiographic phase examination. 2. Unremarkable CT angiogram of the brain. 3. Unremarkable CT angiogram of the neck. Electronically signed by: Cristofer Medina M.D. 12/17/2018 12:03 PM
--- NOTE | 2018-12-17 15:45 | Ultrasound Report ---
BILATERAL LOWER EXTREMITY VENOUS DOPPLER HISTORY: Acute pain and swelling of the lower extremities dvt? COMPARISON STUDY: Duplex venous Doppler study of the left lower extension 09/03/2017. FINDINGS: There is normal compressibility, flow, and augmentation within the bilateral lower extremit y deep venous systems. Suboptimal visualization of the right peroneal vein. Indeterminate conglomerat e adenopathy with internal cystic spaces noted about the left inguinal distribution, 2.9 x 1.0 x 3.0 cm. IMPRESSION: No sonographic evidence of deep venous thrombosis within the right or left lower extremity. Electronically signed by: Antoni Cohen M.D. 12/17/2018 3:44 PM
--- NOTE | 2018-12-17 18:22 | Hospitalist Progress Note ---
Date of Service December 17, 2018 Assessment & Plan (1) Change in vision: This is an 88-year-old female who presents with left vision disturbance. Left vision changes by history the left visual changes was abrupt in onset -admitting nocturnalist had considered stroke but based on overal lack of other neurological deficits and after discussion with neurologists the consensus was that TPA was not needed -admitting nocturnalist spoke with ophthalmology midwife practitioner and was told no TPA for differential of retinal artery occlusion or differential of amaurosis fugax to the left eye -Current hospital imaging without any evidence of stroke or DVT -continue aspirin and atorvastatin -have requested opthamology [facility] Dr. Collins to see patient while in hospital; if this is not possible patient's daughter has arranged for outpatient [facility] followup on 12/18/18 in their clinic around 2 PM Left leg cellulitis -no DVT noted on left leg -continuing cefalzoline q8 hours as started by admitting physician, blood cultures on admission awaiting results -have spoken with patient and patient's daughter and the priority is to make diagnosis in regards for the eye -agree with patient and patient's family member that if prioritizing the symptoms, then the leg cellulitis may be treated as outpatient with trial of oral antibiotics History of atrial tachycardia and atrial fibrillation has pacemaker rate is controlled no noted acute telemetry events to date History of aortic stenosis and atrioventricular block status post pacemaker Hypothyroidism. Continue Synthroid. dyslipidemia stop Zetia and continue atorvastatin Full Code Patient's daughter Jannette [phone] Deep venous thrombosis prophylaxis, heparin subcut Subjective Patient has been a poor historian as she had denied recalling the reason for being brought to the hospital which was apparently for visual changes of the left eye. Patient's daughter at bedside [phone] confirmed that it was the vision problems which was main reason for admission And that incidentally, patient noted also to have swelling and erythema of the left leg On exam patient with both eyes opened and will report that she she sees clearly. She reports she can see clearly with only right eye opened. But with left eye opened she reports blurred vision. It is difficult to perform field of vision testing as she is poor historian Patient denies chest pain or abdominal pain or headache. Patient has been ambulatory Current hospital imaging without any evidence of stroke or DVT Physical Exam Vital Signs (Past 24 Hours): Last Vital Signs Temp 36.7 C 12/17/18 15:32 Pulse 73 12/17/18 15:32 Resp 18 12/17/18 15:32 BP 159/88 H 12/17/18 15:32 Pulse Ox 96 12/17/18 15:32 Constitutional: WD/WN, vitals as above Eyes: On exam patient with both eyes opened and will report that she she sees clearly. She reports she can see clearly with only right eye opened. But with left eye opened she reports blurred vision. Neck: trachea midline, no thyromegaly Cardiovascular: RRR, no murmur, no edema Gastrointestinal (Abdomen): normal bowel sounds, soft, nontender, no hepatosplenomegaly Musculoskeletal: Head/Neck/Chest: normocephalic and head atraumatic swelli ng and erythema of the left leg Neurologic: PERRL, EOMI, accommodation nl, no face palsy, no dysarthria CN's II-XI intact bilaterally Psychiatric: A+Ox3, euthymic affect
[2018-12-17] MEDS: HEPARIN SOD 5,000 UNIT/0.5 ML VIAL SQ SCH (22:03)
--- NOTE | 2018-12-17 22:39 | Consultation Report ---
DATE OF CONSULTATION: 12/17/2018 INDICATIONS: Possible retinal artery thrombosis, acute mental status changes. REFERRING PHYSICIAN: Dr. Femi Zhang PRIMARY CARE PHYSICIAN: Dr. Goncalves. PRIMARY LANDFILL ATTENDANT: Dr. Caceres. HISTORY OF PRESENT ILLNESS: The patient is an 88-year-old female whose history is notable for prior [employer] pacemaker implantation for episodes of recurrent syncope in 2016. She carries an underlying history of calcific aortic valve disease with moderate severe past aortic stenosis, chronic dementia, hypothyroidism, chronic urinary incontinence, past history of paroxysmal atrial tachycardia, question atrial fibrillation. The patient presents this admission noting having been observed by daughter at home with sudden weakness, fatigue. The patient is complaining of left eye visual loss. The patient presented to the Emergency Room with no other focal neurologic abnormalities noted with mental status at baseline. Only complains of blurry vision in left eye. She has undergone a neurologic evaluation without acute findings. She is referred now for further evaluation. Telemetry since admission has demonstrated sinus rhythm and ventricular paced rhythm with 2 short runs of atrial tachycardia. The patient is unable to offer any additional information due to underlying mild dementia. Currently denies acute complaints. Records do not reflect prior history of TIA or stroke. The patient notes no history of rheumatic fever or scarlet fever though is aware of a heart murmur. Notes no tenderness overlying the pacemaker. Exam and history are notable for worsening pain in her left lower extremity with evidence of cellulitis on presentation. She denies fevers, chills, or productive cough. Notes no melena or hematochezia. As noted, patient was a rather poor historian in the past. ALLERGIES: MORPHINE, SULFA, AND ADHESIVES. MEDICATIONS PRIOR TO HOSPITALIZATION: Ezetimibe 10 mg p.o. daily, levothyroxine 100 mcg p.o. every day. PAST SURGICAL HISTORY: Notable for pacemaker insertion in 2016, prior history of cystocele repair, cataract extraction, remote D and C, hemorrhoidectomy, and hysterectomy. FAMILY HISTORY: Not specifically notable for cardiac disease. SOCIAL HISTORY: The patient resides with daughter in [place]. She is a nonsmoker, nondrinker. PHYSICAL EXAMINATION: GENERAL: The patient is a pleasant, age-appropriate female without acute current complaint. VITAL SIGNS: Heart rate is 80, blood pressure is 131/77. HEENT: Normocephalic and atraumatic. Nares without discharge. Throat was clear. NECK: Supple without thyromegaly or lymphadenopathy. There are no carotid bruits audible. LUNGS: Clear to auscultation. CARDIOVASCULAR: Regular with a grade 2/6 to 3/6 systolic murmur. There is no diastolic murmur. PMI is nondisplaced. ABDOMEN: Soft, nontender. EXTREMITIES: Reveal marked tenderness to the left lower extremity with surrounding chronic stasis changes and erythema. NEUROLOGIC: The patient is answering questions with some difficulties with historical reliability. LABORATORY DATA: White cell count on presentation was 7.0, hemoglobin 13.1, hematocrit of 41.1. Sed rate was 38. Sodium is 140, potassium is 4.0, chloride is 108, bicarbonate is 26, BUN is 18, creatinine 0.65, glucose is 99, hemoglobin A1c 6.0. Chest x-ray revealed no acute processes with cardiac silhouette in the upper limits of normal in size. Echocardiogram performed today demonstrates moderate left ventricular hypertrophy with a focal wall motion abnormality consistent with pacemaker activation. EF 60% to 65%. The aortic valve was moderately calcified with borderline severe to severe aortic stenosis. Calculated aortic valve area of 0.9 cm2. There was moderate mitral and trace tricuspid insufficiency. EKG on presentation revealed a sinus rhythm with long first-degree AV block and ventricular paced rhythm, rate 80. Telemetry since admission demonstrates ventricular paced rhythm with 2 episodes of elevated ventricular response rate, possible atrial tachycardia, atrial fibrillation not completely excluded. IMPRESSION: An 88-year-old female who carries an underlying history of past syncope with dual chamber pacemaker in place, chronic dementia, past history of atrial tachycardia, paroxysmal. Presents now with acute mental status changes, question visual loss, superimposed on acute cellulitis of lower extremity. She has undergone extensive neurologic evaluation. Initial findings were unrevealing for acute stroke. The patient is unable to offer additional information regarding acute event. PLAN: Will reintroduce low-dose beta kyree previously administered to the patient for atrial arrhythmias with Toprol-XL 12.5 mg per day. We will follow on telemetry and review pacemaker. If any signs of further atrial tachycardia present, would have low threshold for chronic anticoagulation, likely with Eliquis 2.5 mg twice per day.
[2018-12-18] MEDS: CEFAZOLIN 2000MG 2,000 MG/15 ML SYR IV SCH (00:16)
[2018-12-18 04:58] LABS: Basophils # (auto) 0.03 K/uL (0-0.2); Basophils % (auto) 0.5 %; Eosinophils # (auto) 0.26 K/uL (0-0.5); Eosinophils % (auto) 4.3 %; Hematocrit (blood only) 38.3 % (37-47); Hemoglobin 12.4 g/dL (12.0-16.0); Immature Granulocytes # (auto) 0.01 K/uL (0.00-0.02); Immature Granulocytes % (auto) 0.2 %; Lymphocytes # (auto) 1.05 K/uL (1.2-3.4); Lymphocytes % (auto) 17.5 %; Mean Corpuscular Hgb Conc 32.4 g/dL (32-36); Mean Corpuscular Volume 93.9 fL (80-100); Mean Platelet Volume 10.3 fL (7.4-10.4); Monocytes # (auto) 0.73 K/uL (0.11-0.59); Monocytes % (auto) 12.1 %; Neutrophils # (auto) 3.93 K/uL (1.4-6.5); Neutrophils % (auto) 65.4 %; Platelet Count 205 K/uL (130-400); RDW Coefficient of Variation 14.3 % (11.5-14.5); RDW Standard Deviation 48.7 fL (36.4-46.3); Red Blood Count 4.08 M/uL (4.2-5.4); White Blood Count 6.01 K/uL (4.8-10.8)
[2018-12-18 05:22] LABS: BUN Creatinine Ratio 21.9 (10-20); Creatinine Clr Calc Pharmacy 52.3 ml/min; Est GFR (African American) 83.2; Est GFR (Non-African American) 71.8; Potassium 4.1 mmol/L (3.5-5.1)
[2018-12-18] MEDS: LEVOTHYROXINE SODIUM 100 MCG TABLET PO SCH (06:27)
[2018-12-18] MEDS: ATORVASTATIN 40 MG TAB PO SCH (07:58)
[2018-12-18] MEDS: ASPIRIN 81 MG ECTAB PO SCH (07:59)
[2018-12-18] MEDS: HEPARIN SOD 5,000 UNIT/0.5 ML VIAL SQ SCH (07:59)
[2018-12-18] MEDS ORDERED: cephALEXin 500 MG CAP PO SCH (09:00)
[2018-12-18] MEDS ORDERED: METOPROLOL SUCC 25MG EXT REL TAB PO SCH (09:00)
--- NOTE | 2018-12-18 10:53 | Hospitalist Progress Note ---
Date of Service December 18, 2018 Assessment & Plan (1) Change in vision: This is an 88-year-old female who presents with left vision disturbance. left occular vision changes/blurred left vision by history the left visual changes was abrupt in onset; On exam patient with both eyes opened and will report that she she sees clearly. She reports she can see clearly with only right eye opened. But with left eye opened she reports blurred vision.It is difficult to perform field of vision testing as she is poor historian -admitting nocturnalist had considered stroke but based on overal lack of other neurological deficits and after discussion with neurologists the consensus was that TPA was not needed -admitting nocturnalist spoke with ophthalmology alarm security or surveillance monitor and was told no TPA for differential of retinal artery occlusion or differential of amaurosis fugax to the left eye -Current hospital imaging without any evidence of stroke or DVT -continue aspirin and atorvastatin Discharge medications of aspirin 81 mg daily Discharge medications of atorvastatin 40 mg daily (to replace home medication of Zetia) -outpatient [facility] Ophthalmology followup on 12/18/18 in their clinic around 2 PM Left leg cellulitis -no DVT noted on left leg -was continued on cefalzoline q8 hours as started by admitting physician but patient pulled out IV line at 1 AM on 12/18/18 blood cultures on admission awaiting results -have spoken with patient and patient's daughter and the priority is to make diagnosis in regards for the eye -agree with patient and patient's family member that if prioritizing the symptoms, then the leg cellulitis may be treated as outpatient with trial of oral antibiotics -Discharge antibiotics of Cephalexin twice a day (renally dosed) for 10 days, admission blood culture results can be followed up as outpatient History of atrial tachycardia and atrial fibrillation History of aortic stenosis and History of atrioventricular block has pacemaker heart rate is controlled no noted acute telemetry events to date Discharge medication of Metoprolol Succinate 12.5 mg daily as recommended by inpatient cardiology service Patient had pacemaker interrogated on 12/18/18 in the hospital and no evidence of atrial fibrillation as per cardiology service Hypothyroidism. Continue Synthroid. dyslipidemia continue atorvastatin Full Code Patient's daughter Jannette [phone] Deep venous thrombosis prophylaxis, heparin subcut Discharge Diagnosis left occular vision changes/blurred left vision, Left leg cellulitis, Has pacemaker, Hypothyroidism Discharge Instructions Discharge antibiotics of Cephalexin twice a day (renally dosed) for 10 days. Other Discharge medications of aspirin 81 mg daily Other Discharge medications of atorvastatin 40 mg daily (to replace home medication of Zetia) Other Discharge medication of Metoprolol Succinate 12.5 mg daily as recommended by inpatient cardiology service These medications [facility] Patient had pacemaker interrogated on 12/18/18 in the hospital and no evidence of atrial fibrillation as per cardiology service Discharge appointments Follow up with 12/18/18 [facility] [address], [place] [address] 12/29/2018 1:40 PM Provider China Goncalves, DO Department [facility] 01/07/2019 1:00 PM Provider Pacer Clinic [facility] Department Cardiology, [facility] 01/07/2019 1:30 PM Provider Dakota Caceres Jr. Department Cardiology, [facility] 02/16/2019 1:00 PM Provider Shikha Peng [facility] Department Podiatry [facility] Subjective Patient denies chest pain or abdominal pain or headache. Patient has been ambulatory Patient denies any new changes to the vision Physical Exam Vital Signs (Past 24 Hours): Last Vital Signs Temp 36.5 C 12/18/18 07:21 Pulse 81 12/18/18 07:21 Resp 20 12/18/18 07:21 BP 158/80 H 12/18/18 07:21 Pulse Ox 93 12/18/18 07:21 Constitutional: WD/WN, vitals as above Eyes: PERRL, conjunctivae normal, anicteric sclerae (left eye vision blurred) EOM intact bilaterally Neck: trachea midline, no thyromegaly Respiratory: normal respiratory effort, lungs clear to auscultation Cardiovascular: RRR, no murmur, no edema Gastrointestinal (Abdomen): normal bowel sounds, soft, nontender, no hepatosplenomegaly Musculoskeletal: Head/Neck/Chest: normocephalic and head atraumatic Extremities: + lower extremity abnormal to inspection (left lower extremity swelling and skin changes stable since admission) Neurologic: PERRL, EOMI, accommodation nl, no face palsy, no dysarthria CN's II-XI intact bilaterally Psychiatric: A+Ox3, euthymic affect
--- NOTE | 2018-12-18 11:06 | Discharge Summary ---
Date of Service December 18, 2018 Admission HPI Per Admitting Provider HISTORY OF PRESENT ILLNESS: This is an 88-year-old female with past medical history significant for hypothyroidism, paroxysmal atrial tachycardia, paroxysmal atrial fibrillation, history of aortic stenosis and AV block status post permanent pacemaker, history of cellulitis, presents with left eye vision loss. The patient also some dementia and oriented to name and place only. Lives with her daughter, walks with a cane. Does okay with walking. Today around 6 o'clock during the dinnertime, she complained of some vision loss in the left eye and she was brought to the hospital hospital. One of the grandson is anesthesiologist and he called the ER. Initially stroke alert was not called as symptoms seemed to be improving and she had only vision problem in her 1 eye, but later when went to see the patient her grandson who was a physician was on phone with patient's daughter and was asking whether to do tPA or not, , but by that time this was already close to 4 hours and rechecked with the neurologist on-call and was advised that the episode was mostly retinal artery occlusion, for which tPA was not done or we can call a stroke alert. At that time, when I explained to the grandson about the issue and he seemed ok with the explanation and also by that time 4hrs has elapsed. Patient is alert. Her mental status is baseline. When I asked to close her right eye and see from the left eye, she complains that it is all blurry. She could with both eyes open, . Movements of the eyes, is okay. Denies any headache, no chest pain, no shortness of breath, no difficulty swallowing. No nausea, no cough, no fever or chills, no abdominal pain. Normal bowel and bladder movements. Currently, resting comfortably and hemodynamically stable. No diarrhea. The patient also has erythema in her left lower extremity. The daughter says patient does not allow to check her, apparently patient dresses herself and she did not tell anything about the erythema in her left lower extremity and it was found in the ER. She was treated for cellulitis last year. ALLERGIES: SULFA ANTIBIOTICS. PAST MEDICAL HISTORY: As mentioned above. PAST SURGICAL HISTORY: Status post pacemaker. MEDICATIONS: The patient is on Zetia 10 mg p.o. daily, levothyroxine 100 mcg p.o. daily. FAMILY HISTORY: No family history on file. SOCIAL HISTORY: , lives with her daughter. No smoking, no alcohol. REVIEW OF SYMPTOMS: As per HPI. Rest of review of symptoms negative. Admission Exam Per Admitting Provider PHYSICAL EXAMINATION: GENERAL: The patient is old and frail, not in acute distress. VITAL SIGNS: Temperature 36.5, pulse 81, respiratory rate 19, blood pressure 162/76, oxygen 95% room air. HEENT: No scleral icterus. Pupils equal, round and react to light. NECK: No JVD, no neck masses. CARDIOVASCULAR: S1, S2 heard, ejection systolic murmur present. RESPIRATORY SYSTEM: Clear to auscultation bilaterally. No wheezing, no crackles. ABDOMEN: Soft, bowel sounds present. Nontender. No distention. CENTRAL NERVOUS SYSTEM: Blurred vision on the left eye. Power 5/5 in all extremities. No pronator drift. Coordination of movements normal. Sensation is intact. Alert and oriented x2. EXTREMITIES: Lower extremity edema present. Left lower extremity is erythematous and warm to touch. Principal Diagnosis left occular vision changes/blurred left vision, Left leg cellulitis, Has pacemaker, Hypothyroidism Discharge Exam Constitutional WD/WN, vitals as above Eyes PERRL, conjunctivae normal, anicteric sclerae (left eye vision blurred) EOM intact bilaterally Neck trachea midline, no thyromegaly Respiratory normal respiratory effort, lungs clear to auscultation Cardiovascular RRR, no murmur, no edema Gastrointestinal (Abdomen) normal bowel sounds, soft, nontender, no hepatosplenomegaly Musculoskeletal Head/Neck/Chest: normocephalic and head atraumatic Extremities: + lower extremity abnormal to inspection (left lower extremity swelling and skin changes stable since admission) Neurologic PERRL, EOMI, accommodation nl, no face palsy, no dysarthria CN's II-XI intact bilaterally Psychiatric A+Ox3, euthymic affect Discharge Data Allergies Allergy/AdvReac Type Severity Reaction Status Date / Time adhesive Allergy Intermediate SKIN Verified 12/16/18 19:22 IRRITATION morphine Allergy Unknown CAN'T Verified 12/16/18 19:22 REMEMBER Sulfa (Sulfonamide Allergy Unknown CAN'T Verified 12/16/18 19:22 Antibiotics) REMEMBER Consultations 12/16/18 21:13 ED Decision to Admit Stat 12/17/18 00:29 Consult Case Management - Discharge Planning Routine Consult Case Management - Discharge Planning Routine 12/17/18 08:00 Consult Cardiology Routine Consult Neurology Routine 12/17/18 12:57 Consult Ophthalmology Routine Ordered Studies 12/16/18 19:18 CT head/brain wo con Stat 12/17/18 00:29 US venous doppler LE BI Urgent 12/17/18 03:13 CT angio head w con Stat CT angio neck with con Stat Hospital Course (1) Change in vision: This is an 88-year-old female who presents with left vision disturbance. left occular vision changes/blurred left vision by history the left visual changes was abrupt in onset; On exam patient with both eyes opened and will report that she she sees clearly. She reports she can see clearly with only right eye opened. But with left eye opened she reports blurred vision.It is difficult to perform field of vision testing as she is poor historian -admitting nocturnalist had considered stroke but based on overal lack of other neurological deficits and after discussion with neurologists the consensus was that TPA was not needed -admitting nocturnalist spoke with ophthalmology monument letterer and was told no TPA for differential of retinal artery occlusion or differential of amaurosis fugax to the left eye -Current hospital imaging without any evidence of stroke or DVT -continue aspirin and atorvastatin Discharge medications of aspirin 81 mg daily Discharge medications of atorvastatin 40 mg daily (to replace home medication of Zetia) -outpatient [facility] Ophthalmology followup on 12/18/18 in their clinic around 2 PM Left leg cellulitis -no DVT noted on left leg -was continued on cefalzoline q8 hours as started by admitting physician but patient pulled out IV line at 1 AM on 12/18/18 blood cultures on admission awaiting results -have spoken with patient and patient's daughter and the priority is to make diagnosis in regards for the eye -agree with patient and patient's family member that if prioritizing the symptoms, then the leg cellulitis may be treated as outpatient with trial of oral antibiotics -Discharge antibiotics of Cephalexin twice a day (renally dosed) for 10 days, admission blood culture results can be followed up as outpatient History of atrial tachycardia and atrial fibrillation History of aortic stenosis and History of atrioventricular block has pacemaker heart rate is controlled no noted acute telemetry events to date Discharge medication of Metoprolol Succinate 12.5 mg daily as recommended by inpatient cardiology service Patient had pacemaker interrogated on 12/18/18 in the hospital and no evidence of atrial fibrillation as per cardiology service Hypothyroidism. Continue Synthroid. dyslipidemia continue atorvastatin Full Code Patient's daughter Jannette [phone] Deep venous thrombosis prophylaxis, heparin subcut Discharge Diagnosis left occular vision changes/blurred left vision, Left leg cellulitis, Has pacemaker, Hypothyroidism Discharge Instructions Discharge antibiotics of Cephalexin twice a day (renally dosed) for 10 days. Other Discharge medications of aspirin 81 mg daily Other Discharge medications of atorvastatin 40 mg daily (to replace home medication of Zetia) Other Discharge medication of Metoprolol Succinate 12.5 mg daily as recommended by inpatient cardiology service These medications [facility] Patient had pacemaker interrogated on 12/18/18 in the hospital and no evidence of atrial fibrillation as per cardiology service Discharge appointments Follow up with 12/18/18 [facility] [address] [place] [address] [address], [place] [address] 12/29/2018 1:40 PM Provider China Goncalves DO Department [facility] 01/07/2019 1:00 PM Provider Pacer Clinic [facility] Department Cardiology, [facility] 01/07/2019 1:30 PM Provider Dakota Caceres Jr., DO Department Cardiology, [facility] 02/16/2019 1:00 PM Provider Shikha Peng DPM Department Podiatry [facility] Total Time Total Time Spent Total Time Spent (In Minutes): 40 minutes Total Time Includes: Examination of the Patient, Discharge Planning and Medication Reconciliation Discharge Plan Discharge Items Patient Disposition: Home - Self-Care Reason For Visit: LEFT EYE VISION LOSS? Discharge Diagnosis: left occular vision changes/blurred left vision, Left leg cellulitis, Has pacemaker, Hypothyroidism Condition: Good Discharge Goals: Diagnostic testing and Improve disease control Activity: Resume your previous activity Non-emergency contact: Primary Care Provider, Specialist and Software Licensing Analyst Call non-emergency contact if: you have any medication questions Follow-up/Referrals: China Goncalves [Primary Care Provider] - Diet: Heart Healthy Diet Texture: Dental soft (bite-sized) Addtl Provider Instructions: Discharge antibiotics of Cephalexin twice a day (renally dosed) for 10 days. Other Discharge medications of aspirin 81 mg daily Other Discharge medications of atorvastatin 40 mg daily (to replace home medication of Zetia) Other Discharge medication of Metoprolol Succinate 12.5 mg daily as recommended by inpatient cardiology service These medications were [facility] Patient had pacemaker interrogated on 12/18/18 in the hospital and no evidence of atrial fibrillation as per cardiology service Discharge appointments Follow up with 12/18/18 [facility] [address], [place] [address] 12/29/2018 1:40 PM Provider China Goncalves, Department [facility] 01/07/2019 1:00 PM Provider Pacer Clinic [facility] Department Cardiology, [facility] 01/07/2019 1:30 PM Provider Dakota Caceres Jr. Department Cardiology, [facility] 02/16/2019 1:[address] PM [address] Shikha Peng [facility] Department Podiatry [facility] Prescriptions: New aspirin 81 mg tablet,chewable 81 mg PO QAM 30 Days Qty: 30 RF: 0 atorvastatin 40 mg Tablet 40 mg PO QAM 30 Days Qty: 30 RF: 0 cephalexin 500 mg Capsule 500 mg PO BID 10 Days Qty: 20 RF: 0 metoprolol succinate 25 mg Tablet Extended Release 24 Hr 12.5 mg PO QAM 30 Days Qty: 15 RF: 0 Continued levothyroxine 100 mcg Tablet 100 mcg PO DAILY RF: 0 Discontinued ezetimibe [Zetia] 10 mg Tablet 10 mg PO DAILY RF: 0 Stand-Alone Forms: [facility] Discharge Orders: Discharge Order (Routine); Ordered 12/18/18 Ordered By: Femi Zhang Admission Data Admit Date/Time: 12/16/18 22:40 Attending Provider: Femi Zhang Admit Provider: Marcell Duarte Primary Care Provider: China Goncalves Other Providers: Marcell Duarte ; Dakota Caceres ; Gabe Mcneal ; Kam Lacey ; Jesús Roger ; Donnell Henry ; Kang Delatorre ; Lawanda Palacios ; Emma Hyman ; Mike Edwards ; Pastor Collins Service: Telemetry Other Pending Studies at Discharge: Yes (blood cultures awaiting results)
--- NOTE | 2018-12-18 11:52 | Cardiology Progress Note ---
Date of Service December 18, 2018 Assessment & Plan (1) Change in vision: Ophthalmology appointment later today (2) Cellulitis of leg, left: Planned outpatient treatment (3) Status post cardiac pacemaker procedure: Pacemaker interrogation finds it functioning appropriately no episodes of atrial fibrillation since at least June 2018 No prior episodes of atrial fibrillation on outpatient interrogations Would not anticoagulation Would begin low-dose Toprol-XL 12.5 mg p.o. daily as previously ordered (4) Aortic stenosis: Borderline severe, plan follow-up with cardiology as per routine (5) Hypertension: Subjective Patient seen and examined, chart medications telemetry reviewed. Patient Anticipates discharge for outpatient management, no focal complaint this morning. At baseline with poor short-term memory mild disorientation Physical Exam Vital Signs (Past 24 Hours): Last Vital Signs Temp 36.5 C 12/18/18 11:13 Pulse 73 12/18/18 11:13 Resp 20 12/18/18 11:13 BP 131/77 12/18/18 11:13 Pulse Ox 93 12/18/18 11:13 Constitutional: WD/WN, vitals as above ENMT: external ear and nose normal, oropharynx normal Respiratory: normal respiratory effort, lungs clear to auscultation Cardiovascular: Rate/Rhythm: regular rate and regular rhythm Heart Sounds: + murmur (Grade 3/6 systolic no diastolic); no gallop Chest (Breasts): Chest: + pacemaker (Pocket site without inflammation) Gastrointestinal (Abdomen): normal bowel sounds, soft, nontender, no he patosplenomegaly Skin: Cellulitis left lower extremity less inflamed wreath machine tender to touch Results & Data Laboratory Results Laboratory Results - last 24 hr 12/18/18 12/18/18 04:47 04:47 WBC 6.01 RBC 4.08 L Hgb 12.4 Hct 38.3 MCV 93.9 MCH 30.4 MCHC 32.4 RDW Std Deviation 48.7 H RDW Coeff of Jordy 14.3 Plt Count 205 MPV 10.3 Immature Gran % (Auto) 0.2 Neut % (Auto) 65.4 Lymph % (Auto) 17.5 Mora % (Auto) 12.1 Eos % (Auto) 4.3 Baso % (Auto) 0.5 Immature Gran # (Auto) 0.01 Neut # (Auto) 3.93 Lymph # (Auto) 1.05 L Mora # (Auto) 0.73 H Eos # (Auto) 0.26 Baso # (Auto) 0.03 Sodium 140 Potassium 4.1 Chloride 108 H Carbon Dioxide 29 Anion Gap 3.0 BUN 16 Creatinine 0.74 Est Cr Clr Drug Dosing 52.3 Est GFR ( Amer) 83.2 Est GFR (Non-Af Amer) 71.8 BUN/Creatinine Ratio 21.9 H Glucose 100 H Calcium 8.0 L Diagnostic Findings Pacemaker interrogation today reveals no atrial or ventricular arrhythmias specifically no atrial fibrillation with normal device function
== END 2018-12-18 12:24 | disposition home or self-care (01) | DRG 125 ==
LOC: ED 18:59 → 2S 22:40

== ENCOUNTER 2018-12-20 12:59 | Inpatient (IN) ==
[2018-12-20] MEDS ORDERED: VANCOMYCIN CONSULT ACTIVE PRN (13:11)
[2018-12-20] MEDS ORDERED: VANCOMYCIN HCL 2,000 MG in SODIUM CHLORIDE 0.9% 500 ML IV ONE (13:17)
--- NOTE | 2018-12-20 13:38 | XRay Report ---
XR chest 1V portable CLINICAL HISTORY: weak eval for pna chest pain. Dyspnea. COMPARISON STUDY: 12/16/2018 FINDINGS: Small developing patchy parenchymal infiltrate left base. Lungs otherwise appear clear. No significant cardiac enlargement. IMPRESSION: Early developing interstitial infiltrate left base. The above report was generated using voice recognition software. It may contain grammatical, syntax or spelling errors. Electronically signed by: Kang Mann M.D. 12/20/2018 1:36 PM
[2018-12-20 13:44] LABS: Basophils # (auto) 0.01 K/uL (0-0.2); Basophils % (auto) 0.1 %; Eosinophils # (auto) 0.24 K/uL (0-0.5); Eosinophils % (auto) 2.9 %; Hematocrit (blood only) 38.4 % (37-47); Immature Granulocytes # (auto) 0.01 K/uL (0.00-0.02); Immature Granulocytes % (auto) 0.1 %; Lymphocytes # (auto) 0.75 K/uL (1.2-3.4); Mean Corpuscular Hgb Conc 31.3 g/dL (32-36); Mean Corpuscular Volume 95.3 fL (80-100); Mean Platelet Volume 11.1 fL (7.4-10.4); Monocytes % (auto) 10.8 %; Neutrophils # (auto) 6.46 K/uL (1.4-6.5); Neutrophils % (auto) 77.1 %; Platelet Count 219 K/uL (130-400); RDW Coefficient of Variation 14.5 % (11.5-14.5); RDW Standard Deviation 51.1 fL (36.4-46.3); Red Blood Count 4.03 M/uL (4.2-5.4); White Blood Count 8.37 K/uL (4.8-10.8)
[2018-12-20 13:51] LABS: Albumin Level 2.9 gm/dl (3.4-5.0); BUN Creatinine Ratio 22.8 (10-20); Creatinine Clr Calc Pharmacy 44.4 ml/min; Est GFR (African American) 62.3; Est GFR (Non-African American) 53.8; Potassium 4.2 mmol/L (3.5-5.1)
[2018-12-20 13:54] LABS: Albumin Globulin Ratio 0.7 (0.9-2); Bilirubin,Total 0.7 mg/dl (0.2-1); Globulin 4.4 gm/dl (2.5-4.0); Total Protein 7.3 gm/dl (6.4-8.2)
[2018-12-20] MEDS ORDERED: cefTRIAXone SODIUM 1,000 MG/50 ML BAG IV STA (14:39)
--- NOTE | 2018-12-20 15:24 | History & Physical Report ---
Date of Service December 20, 2018 Assessment & Plan (1) Bilateral lower leg cellulitis: This is an 88-year-old female with a PMH of paroxysmal atrial fibrillation, hypothyroidism, history of aortic stenosis and AV block s/p permanent pacemaker, recent diagnosis of macular degeneration and recent LLE cellulitis who presents with worsening bilateral cellulitis x 3 days. -Worsening bilateral cellulitis of lower extremities -Afebrile, no leukocytosis, non-toxic appearance -No growth on blood cultures from previous admission -Ddx worsening infection vs allergic reaction to Keflex (received 3 days of antibiotic) -Blood cultures obtained. Started on vancomycin -Applying ice, PO benadryl for inflammation (2) Abnormal CXR: CXR with early developing interstitial infiltrate left base -Patient is at respiratory baseline, no respiratory distress. Saturating at 90% on room air -Monitor for now, consider repeat CXR if symptoms worsen (3) Hypertension: Normotensive. Continue Toprol (4) Aortic stenosis: Severe valvular disease on echo (5) Hypothyroidism: Continue levothyroxine DVT Ppx: SQ heparin Code status:FULL PCP: Ivanna Dispo: Admitted to [facility]. Plan to return home once medically stable. Patient seen in collaboration with Dr. Zhang. Please see addendum. History of Present Illness Chief Complaint: Bilateral leg cellulitis Primary Care Provider: China Goncalves This is an 88-year-old female with a PMH of paroxysmal atrial fibrillation, hy pothyroidism, history of aortic stenosis and AV block s/p permanent pacemaker, recent diagnosis of macular degeneration and recent LLE cellulitis who presents with worsening bilateral cellulitis times 3 days. Patient was recently admitted to service from 12/16-12/18 for visual changes and left lower extremity cellulitis. Patient was discharged on p.o. Keflex. Blood cultures from previous admission show no growth. Over the weekend, according to family, patient developed redness and warmth to left lower extremity as well as right lower extremity. Also complaining of dry cough, chills and frequent urination. Has completed 3 days of Keflex antibiotic but due to marketed increase in redness of legs, family brought back to ED for further evaluation. Denies fever, chills, lightheadedness, headache, chest pain, palpitations, shortness of breath, nausea, vomiting, abdominal pain, dysuria, diarrhea or constipation. Patient is afebrile and hemodynamically stable. No leukocytosis. Blood cult ures were obtained and patient was started on vancomycin and ceftriaxone. Allergies Allergy/AdvReac Type Severity Reaction Status Date / Time adhesive Allergy Intermediate SKIN Verified 12/20/18 13:20 IRRITATION morphine Allergy Unknown CAN'T Verified 12/20/18 13:20 REMEMBER Sulfa (Sulfonamide Allergy Unknown CAN'T Verified 12/20/18 13:20 Antibiotics) REMEMBER Home Medications Home Medications Medication Instructions Recorded Confirmed Type levothyroxine 100 mcg PO DAILY 12/16/18 12/20/18 History aspirin 81 mg PO QAM 30 Days #30 tab 12/18/18 12/20/18 Rx atorvastatin 40 mg PO QAM 30 Days #30 tab 12/18/18 12/20/18 Rx cephalexin 500 mg PO BID 10 Days #20 cap 12/18/18 12/20/18 Rx metoprolol succinate 12.5 mg PO QAM 30 Days #15 tab 12/18/18 12/20/18 Rx ondansetron HCl [Zofran] 4 mg PO Q6H PRN 5 Days #20 tab 12/18/18 12/20/18 Rx Past Med/Surg History Medical History Cellulitis of leg, left (Acute) Aortic stenosis (Chronic) Hypertension (Chronic) Hypothyroidism (Chronic) Dementia (Chronic) Osteoporosis (Chronic) Vitamin D deficiency (Chronic) Ambulatory dysfunction (Chronic) Macular degeneration (Chronic) Surgical History Status post cardiac pacemaker procedure (Chronic) Social History Preferred Language: Lao Communication Ability: Effective Yield Loss Inspector Required: No Beliefs That Will Affect Care: None and Lutheran Current Living Situation: Family Other Information That Helps Us Care for You: No Feels Safe at Home: Yes Safety Concerns: Feels Safe At This Time Smoking Status: Never smoker Hx Alcohol Use: No Hx Substance Use: No Review of Systems All systems reviewed & are unremarkable except as noted in HPI & below Physical Exam Vital Signs (Past 24 Hours): Last Vital Signs Temp 37.0 C 12/20/18 13:09 Pulse 70 12/20/18 14:50 Resp 18 12/20/18 14:50 BP 115/74 12/20/18 14:50 Pulse Ox 98 12/20/18 14:50 Physical Exam: General Appearance: WD/WN, no apparent distress, resting comfortably Head: normocephalic, atraumatic Eyes: normal inspection, PERRL, EOMI ENT: hearing grossly normal, pharynx normal (moist mucous membranes) Neck: supple, no JVD, no adenopathy Respiratory/Chest: lungs clear to auscultation. No wheezes, rales or rhonci. No respiratory distress or accessory muscle use Cardiovascular: regular rate, rhythm, no murmur, normal peripheral pulses Abdomen/GI: normal bowel sounds, soft, non-tender to palpation Extremities/Musculoskelatal: normal inspection, no calf tenderness, normal capillary refill, no pedal edema Neurologic/Psych: alert, normal mood/affect, oriented x 3 Skin: normal color, warm/dry. BLE erythema with edema distal to knees. No blistering or drainage noted. Tender to palpation. Results & Data Laboratory Results Short CBC 12/20/18 Range/Units 12:20 WBC 8.37 (4.8-10.8) K/uL Hgb 12.0 (12.0-16.0) g/dL Hct 38.4 (37-47) % Plt Count 219 (130-400) K/uL BMP 12/20/18 12:20 Sodium 140 Potassium 4.2 Chloride 104 Carbon Dioxide 32 BUN 21 H Creatinine 0.94 Glucose 103 H Calcium 8.0 L Liver Function 12/20/18 Range/Units 12:20 Total Bilirubin 0.7 (0.2-1) mg/dl AST 38 H (15-37) U/L ALT 22 (12-78) U/L Alkaline Phosphatase 73 (45-117) U/L Albumin 2.9 L (3.4-5.0) gm/dl Diagnostic Findings CXR: IMPRESSION: Early developing interstitial infiltrate left base. Supervising Physician Co-Signing Physician Notes I have seen and examined the patient with physician assistant professor of english and would like to comment in addition that patient returns to hospital after previous hospitalization primarily for left eye visual changes for which patient was discharged on 12/18/18 to see ophthalmology doctor in clinic and as per patients daughter the diagnosis was macular degeneration. At the time patient had left leg cellulitis for which she is initially got cefazolin IV and then discharged on oral renally dosed BID Keflex. Although the blood cultures from that admission returned as no growth, the patient returns to the emergency room with daughter for worsening erythema and tenderness of bilaterally lower extremities. Patients daughter concerned whether these skin changes are reactions to previous hospital or outpatient medications. Alternatively patient could have had worsening cellulitis. It is somewhat atypical for cellulitis to have spread to both legs. Blood cultures have been sent in the ED. ESR has been elevated and CRP is much more elevated compared to previous admission. Patient started on vancomycin in the ED and will continue. The ceftriaxone as ordered by emergency room physician have by discontinued by hospitalist in case patient if having skin reactions to beta-lactams. Patient given IV Benadryl and will monitor whether there are some benefits of having antihistamine. History of atrial tachycardia and atrial fibrillation History of aortic stenosis and History of atrioventricular block has pacemaker Patient had pacemaker interrogated on 12/18/18 in the hospital and no evidence of atrial fibrillation as per cardiology serviceon Metoprolol Succinate 12.5 mg daily Hypothyroidism. Continue Synthroid. Otherwise agree with other assessment and plan for medical conditions as docum ented by physician assistant professor of english
[2018-12-20] MEDS ORDERED: DiphenhydrAMINE HCL 50 MG/ML VIAL IV STA (15:47)
[2018-12-20] MEDS ORDERED: ONDANSETRON INJ 2 MG/ML 2 ML VIAL IV PRN (17:44)
[2018-12-20] MEDS ORDERED: SODIUM CHLORIDE 0.9% 1000ML 1,000 ML IV SCH (17:44)
[2018-12-20] MEDS ORDERED: POLYETHYLENE (MIRALAX) 17 GM PACK PO PRN (17:44)
[2018-12-20] MEDS ORDERED: ACETAMINOPHEN 325 MG TAB PO PRN (17:44)
[2018-12-20 19:24] LABS: Prothrombin Time 10.7 Seconds (9.0-12.0)
--- NOTE | 2018-12-20 19:32 | Emergency Department Note ---
Entered by Simone Galvez acting as a scribe for Jesús Garzon MD History of Present Illness General Chief complaint: Infection Stated complaint: cellulitis/lower legs Time Seen by Provider: 12/20/18 13:01 Source: patient History of Present Illness Onset (ago): day(s) 4 Location: lower extremity (leg cellulitus) Radiation: other (leg cellulitus started on left leg but has now spread to right leg) Pain Consistency: + other (worsening) Exacerbated By: + other (standing or touching area of cellulitis) Associated symptoms: + denies other symptoms (diarrhea, cold symptoms) and + weakness (leg weakness); no cough, no fever/chills, no nausea/vomiting and no shortness of breath The patient is a 88 year old F who presents to the Emergency Room with complaints of worsening leg cellulitis starting 4 days ago. She states that her cellulitis started on her left leg but now has spread to her right leg. She adds that her pain is worsened when she stands or touches it. She states that she is currently experiencing leg weakness. She denies currently experiencing a fever, vomiting, chest pain, shortness of breath, diarrhea, cold symptoms, and coughing. The patients daughter notes that the patient was discharged from the ED 4 days ago to go see an mold sander for visual loss and was diagnosed with macular degeneration. She adds that the patients vision has now improved. The patient had cellulitis while she was in the hospital. Because they were unable to diagnose her visual loss with the equipment in the hospital she was discharged to see the mold sander with the understanding that she may have to return because of her cellulitis. Home Medications Home Medications Medication Instructions Recorded Confirmed Type levothyroxine 100 mcg PO DAILY 12/16/18 12/20/18 History aspirin 81 mg PO QAM 30 Days #30 tab 12/18/18 12/20/18 Rx atorvastatin 40 mg PO QAM 30 Days #30 tab 12/18/18 12/20/18 Rx cephalexin 500 mg PO BID 10 Days #20 cap 12/18/18 12/20/18 Rx metoprolol succinate 12.5 mg PO QAM 30 Days #15 tab 12/18/18 12/20/18 Rx ondansetron HCl [Zofran] 4 mg PO Q6H PRN 5 Days #20 tab 12/18/18 12/20/18 Rx Allergies Allergy/AdvReac Type Severity Reaction Status Date / Time adhesive Allergy Intermediate SKIN Verified 12/20/18 13:20 IRRITATION morphine Allergy Unknown CAN'T Verified 12/20/18 13:20 REMEMBER Sulfa (Sulfonamide Allergy Unknown CAN'T Verified 12/20/18 13:20 Antibiotics) REMEMBER Past Med/Surg History Medical History Cellulitis of leg, left (Acute) Aortic stenosis (Chronic) Hypertension (Chronic) Hypothyroidism (Chronic) Dementia (Chronic) Osteoporosis (Chronic) Vitamin D deficiency (Chronic) Ambulatory dysfunction (Chronic) Macular degeneration (Chronic) Surgical History Status post cardiac pacemaker procedure (Chronic) Family History Other Family history non-contributory Social History Preferred Language: Botswanan Communication Ability: Effective Master Merchandiser Required: No Beliefs That Will Affect Care: None and Jew Current Living Situation: Family Other Information That Helps Us Care for You: No Feels Safe at Home: Yes Safety Concerns: Feels Safe At This Time Smoking Status: Never smoker Hx Alcohol Use: No Hx Substance Use: No Review of Systems See HPI for pertinent positives & negatives. and A total of 10 systems reviewed and were otherwise negative Physical Exam Vital Signs Vital Signs - 24 hr 12/20/18 13:09 12/20/18 14:50 12/20/18 16:23 Temperature 37.0 C Temperature Source Oral Sepsis Recent Fever Within 48 Hours Yes Sepsis Action Taken by Nursing No Action Required Pulse Rate 86 Pulse Rate [Left] 70 84 Pulse Rhythm [Left] Regular Respiratory Rate 18 18 20 Respiratory Effort / Characteristics Non-Labored Non-Labored Non-Labored Respiratory Depth Normal Normal Normal Blood Pressure 140/60 Blood Pressure [Left Arm] 115/74 150/78 H Blood Pressure [Right Arm] Blood Pressure Mean 86 Blood Pressure Mean [Left Arm] 87 102 Blood Pressure Mean [Right Arm] Blood Pressure Position [Right Arm] Pulse Oximetry 96 98 97 Oxygen Delivery Method Nasal Cannula Room Air Room Air Oxygen Flow Rate 2 12/20/18 16:30 12/20/18 18:11 Temperature 36.7 C Temperature Source Oral Sepsis Recent Fever Within 48 Hours Sepsis Action Taken by Nursing Pulse Rate Pulse Rate [Left] 81 Pulse Rhythm [Left] Respiratory Rate 16 Respiratory Effort / Characteristics Respiratory Depth Blood Pressure Blood Pressure [Left Arm] Blood Pressure [Right Arm] 137/71 Blood Pressure Mean Blood Pressure Mean [Left Arm] Blood Pressure Mean [Right Arm] 93 Blood Pressure Position [Right Arm] Lying Pulse Oximetry 90 Oxygen Delivery Method Room Air Room Air Oxygen Flow Rate Constitutional: Vital signs reviewed. Eyes: Pupils are equal round reactive to light. Conjunctiva are noninjected. ENT: Pharynx is clear without erythema or exudate. Mucous membranes are moist. Neck supple without meningeal signs. Respiratory: Clear to auscultation bilaterally. Breath sounds are equal bilaterally. Cardiovascular: Regular rate and rhythm. No rubs or gallops. GI: Soft, nondistended and nontender. Bowel sounds are present. Musculoskeletal: Bilateral lower extremity edema with significant erythema to lower extremities bilaterally. Increased warmth and tenderness extending up to lateral aspect of left leg and mid-thigh with multiple excoriations. Integumentary: No cyanosis. Neurological: The patient is awake and alert. No focal deficits. Psychiatric: Normal affect. Course 1313: Past medical records reviewed. The patient was evaluated in room A12B, and a complete history and physical examination were performed. 1438: I reviewed the patient's case with Dr. Janice Dumont PA-C. She will evalua te the patient for further management. She has requested that I administer the patient ceftriaxone. 1441: I re-evaluated the patient and discussed her test results with the patient and her daughter. The patient denies any cold or cough symptoms. Consultations Consultation #1: I reviewed the patient's case with Dr. Janice Dumont PA-C. She will evaluate the patient for further management. She has requested that I administer the patient ceftriaxone. Time: 14:38 Administered Medications Discontinued Medications Diphenhydramine HCl (Benadryl) 25 mg IV NOW STA Stop: 12/20/18 15:48 Last Admin: 12/20/18 16:18 Dose: 25 mg Documented by: [id number] Vancomycin HCl 2,000 mg/ (Sodium Chloride) 540 mls @ 200 mls/hr IV NOW ONE Stop: 12/20/18 15:58 Last Infusion: 12/20/18 16:20 Dose: 0 mls/hr Documented by: [id number] Admin: 12/20/18 13:26 Dose: 200 mls/hr Documented by: [id number] Ceftriaxone Sodium (Rocephin) 1,000 mg in 50 mls @ 100 mls/hr IV NOW STA Stop: 12/20/18 15:08 Last Admin: 12/20/18 15:52 Dose: Not Given Documented by: [id number] Medical Decision Making Differential Diagnosis Differential Diagnosis includes: cellulitis, bacteremia, outpatient treatment failure, lymph edema, MRSA Medical Records Attestation: I reviewed the patient's medical records. Home Medications Current Medication List: was personally reviewed by me Laboratory Data Attestation: I reviewed the patient's lab results. Result diagrams: 12/20/18 12:20 12/20/18 12:20 Lab Results 12/20/18 12/20/18 12/20/18 Range/Units 12:20 12:20 12:20 WBC 8.37 (4.8-10.8) K/uL RBC 4.03 L (4.2-5.4) M/uL Hgb 12.0 (12.0-16.0) g/dL Hct 38.4 (37-47) % MCV 95.3 (80-100) fL MCH 29.8 (25-34) pg MCHC 31.3 L (32-36) g/dL RDW Std Deviation 51.1 H (36.4-46.3) fL RDW Coeff of Jordy 14.5 (11.5-14.5) % Plt Count 219 (130-400) K/uL MPV 11.1 H (7.4-10.4) fL Immature Gran % (Auto) 0.1 % Neut % (Auto) 77.1 % Lymph % (Auto) 9.0 % [place] % (Auto) 10.8 % Eos % (Auto) 2.9 % Baso % (Auto) 0.1 % Immature Gran # (Auto) 0.01 (0.00-0.02) K/uL Neut # (Auto) 6.46 (1.4-6.5) K/uL Lymph # (Auto) 0.75 L (1.2-3.4) K/uL [place] # (Auto) 0.90 H (0.11-0.59) K/uL Eos # (Auto) 0.24 (0-0.5) K/uL Baso # (Auto) 0.01 (0-0.2) K/uL ESR 73 H (0-21) mm/hr PT (9.0-12.0) Seconds INR (0.9-1.1) Sodium 140 (136-145) mmol/L Potassium 4.2 (3.5-5.1) mmol/L Chloride 104 (98-107) mmol/L Carbon Dioxide 32 (21-32) mmol/L Anion Gap 4.0 (3-11) BUN 21 H (7-18) mg/dl Creatinine 0.94 (0.6-1.2) mg/dl Est Cr Clr Drug Dosing 44.4 ml/min Est GFR ( Amer) 62.3 Est GFR (Non-Af Amer) 53.8 BUN/Creatinine Ratio 22.8 H (10-20) Glucose 103 H (70-99) mg/dl Calcium 8.0 L (8.5-10.1) mg/dl Total Bilirubin 0.7 (0.2-1) mg/dl AST 38 H (15-37) U/L ALT 22 (12-78) U/L Alkaline Phosphatase 73 (45-117) U/L C-Reactive Protein (0-0.29) mg/dl Total Protein 7.3 (6.4-8.2) gm/dl Albumin 2.9 L (3.4-5.0) gm/dl Globulin 4.4 H (2.5-4.0) gm/dl Albumin/Globulin Ratio 0.7 L (0.9-2) Procalcitonin (0-0.5) ng/ml 12/20/18 12/20/18 12/20/18 Range/Units 12:20 12:20 12:20 WBC (4.8-10.8) K/uL RBC (4.2-5.4) M/uL Hgb (12.0-16.0) g/dL Hct (37-47) % MCV (80-100) fL MCH (25-34) pg MCHC (32-36) g/dL RDW Std Deviation (36.4-46.3) fL RDW Coeff of Jordy (11.5-14.5) % Plt Count (130-400) K/uL MPV (7.4-10.4) fL Immature Gran % (Auto) % Neut % (Auto) % Lymph % (Auto) % [place] % (Auto) % Eos % (Auto) % Baso % (Auto) % Immature Gran # (Auto) (0.00-0.02) K/uL Neut # (Auto) (1.4-6.5) K/uL Lymph # (Auto) (1.2-3.4) K/uL [place] # (Auto) (0.11-0.59) K/uL Eos # (Auto) (0-0.5) K/uL Baso # (Auto) (0-0.2) K/uL ESR (0-21) mm/hr PT 10.7 (9.0-12.0) Seconds INR 1.0 (0.9-1.1) Sodium (136-145) mmol/L Potassium (3.5-5.1) mmol/L Chloride (98-107) mmol/L Carbon Dioxide (21-32) mmol/L Anion Gap (3-11) BUN (7-18) mg/dl Creatinine (0.6-1.2) mg/dl Est Cr Clr Drug Dosing ml/min Est GFR ( Amer) Est GFR (Non-Af Amer) BUN/Creatinine Ratio (10-20) Glucose (70-99) mg/dl Calcium (8.5-10.1) mg/dl Total Bilirubin (0.2-1) mg/dl AST (15-37) U/L ALT (12-78) U/L Alkaline Phosphatase (45-117) U/L C-Reactive Protein 10.10 H (0-0.29) mg/dl Total Protein (6.4-8.2) gm/dl Albumin (3.4-5.0) gm/dl Globulin (2.5-4.0) gm/dl Albumin/Globulin Ratio (0.9-2) Procalcitonin 0.19 (0-0.5) ng/ml Imaging Data Radiologist's Impression: Radiology results as stated below per my review and the radiologist's interpretation: XR chest 1V portable CLINICAL HISTORY: weak eval for pna chest pain. Dyspnea. COMPARISON STUDY: 12/16/2018 FINDINGS: Small developing patchy parenchymal infiltrate left base. Lungs otherwise appear clear. No significant cardiac enlargement. IMPRESSION: Early developing interstitial infiltrate left base. The above report was generated using voice recognition software. It may contain grammatical, syntax or spelling errors. Electronically signed by: Kang Mann M.D. 12/20/2018 1:36 PM ECG Data Attestation: I personally reviewed and interpreted this ECG as follows: Indication: weakness Rate (beats per minute): 107 Rhythm: other (paced) Findings: + other (QRS 148 milliseconds); no acute ischemic change Blood Pressure Blood Pressure Findings: Elevated blood pressure Blood Pressure Disposition: Referred to patients primary care provider MDM Narrative I did perform a limited focused review of portions of the patient's old chart on the electronic medical record. The patient was here on December 19 for visual loss and was admitted. She also had left leg cellulitis. There was no DVT on ultrasound and blood cultures were negative. The patient was discharged with Keflex for 10 days and was sent to see ophthalmology because the equipment in the ED was not appropriate and could not properly asses her condition. She was told that she may need to return. I did evaluate the patient as noted above. The patient is presenting with worsening cellulitis of the left leg which has now spread to the right leg. She denies any fever or vomiting. Her visual symptoms are improved. She has been on antibiotics at home for her cellulitis. I did obtain history from the patient as well as her daughter who is at the bedside. IV access was established. The patient was placed on a continuous protective signal operations supervisor. I did order and personally review the patient's 12-lead EKG and chest x-ray as described above. EKG does not show any acute ischemia. Her chest x-ray shows left lower lobe infiltrate. The patient denies having any cough or cold symptoms. I did order and review the patient's blood work as noted in the electronic medical record. Her white blood cell count is not elevated. Labs are unremarkable. I did treat the patient with vancomycin 2 g IV after blood cultures were obtained. To cover the pneumonia she was also given ceftriaxone 1 g IV. I did discuss the case with the hospitalist and manager of case. I did discuss the test results with the patient and her daughter. Impression & Plan Bilateral lower leg cellulitis, Failure of outpatient treatment, Left lower lobe pneumonia Discharge Plan Visit Data *Final* Discharge Date/Time: 12/20/18 17:03 Chief Complaint: Infection Stated Complaint: cellulitis/lower legs ED Provider: Jesús Garzon Discharge Problem: Bilateral lower leg cellulitis, Failure of outpatient treatment, Left lower lobe pneumonia Patient Disposition: Admitted As Inpatient Discharge Instructions Interventions: ED Discharge Assessment Last Done: 12/20/18 17:03 The mattiibe's documentation has been prepared under my direction and personally reviewed by me in its entirety. I confirm that the note above accurately reflects all work, treatment, procedures, and medical decision making performed by me.
[2018-12-20] MEDS: HEPARIN SOD 5,000 UNIT/0.5 ML VIAL SQ SCH (21:32)
[2018-12-20] MEDS ORDERED: HEPARIN SOD 5,000 UNIT/0.5 ML VIAL SQ SCH (22:00)
[2018-12-20 22:03] LABS: Appearance Urine Cloudy (Clear); Bacteria Urine Automated Negative (Negative); Bilirubin Urine Negative (Negative); Blood Urine Trace (Negative); Color Urine Yellow; Epithelial Cell Urine Auto >30 /lpf (0-5); Glucose Urine UA Negative (Negative); Ketones Urine Negative (Negative); Leukocyte Esterase Urine Negative (Negative); Nitrite Urine Negative (Negative); Protein Urine Trace (Negative); RBC Urine Automated 0-4 /hpf (0-4); Specific Gravity Urine 1.024 (1.000-1.030); Urobilinogen Urine Negative (Negative)
[2018-12-21] MEDS: LEVOTHYROXINE SODIUM 100 MCG TABLET PO SCH (06:08)
[2018-12-21 06:09] LABS: Hematocrit (blood only) 36.4 % (37-47); Hemoglobin 11.3 g/dL (12.0-16.0); Mean Corpuscular Volume 96.8 fL (80-100); Mean Platelet Volume 10.8 fL (7.4-10.4); Platelet Count 196 K/uL (130-400); RDW Coefficient of Variation 14.5 % (11.5-14.5); RDW Standard Deviation 51.8 fL (36.4-46.3); Red Blood Count 3.76 M/uL (4.2-5.4); White Blood Count 7.98 K/uL (4.8-10.8)
[2018-12-21 06:44] LABS: BUN Creatinine Ratio 28.2 (10-20); Calcium 7.6 mg/dl (8.5-10.1); Creatinine Clr Calc Pharmacy 52.2 ml/min; Est GFR (African American) 75.8; Est GFR (Non-African American) 65.4; Potassium 4.5 mmol/L (3.5-5.1)
[2018-12-21] MEDS: METOPROLOL SUCC 25MG EXT REL TAB PO SCH (08:22)
[2018-12-21] MEDS: ATORVASTATIN 40 MG TAB PO SCH (08:23)
[2018-12-21] MEDS: ASPIRIN 81 MG ECTAB PO SCH (08:23)
[2018-12-21] MEDS: HEPARIN SOD 5,000 UNIT/0.5 ML VIAL SQ SCH ×2 (08:24→20:14)
[2018-12-21] MEDS ORDERED: VANCOMYCIN HCL 1,250 MG in SODIUM CHLORIDE 0.9% 250 ML IV SCH (09:00)
--- NOTE | 2018-12-21 12:56 | Pharmacy Report ---
Pharmacy Abx Dose Short Note - Date of Service December 21, 2018 - Assessment & Plan Assessment * Ms Adams is an 88 year old F receiving Vancomycin for empiric treatment of B/L LE cellulitis. * Patient was taking oral Keflex as an outpatient prior to admission. Pt is being evaluated for SSTI vs allergic rxn to Keflex. * Blood and urine cultures are pending. * Procalcitonin (0.19 ng/mL) and WBC are WNL. Patient has been afebrile. Plan Vancomycin * Loading dose: Vanc 2000mg (~25mg/kg) IV x1 dose, given in the ED last evening * Maintenance dose: Vanc 1250mg (~15mg/kg) IV every 18 hours * Estimated p'kinetic parameters (based on CrCl ~52mL/min): * Sam ~ 0.048/hr t1/2 ~ 14.4hr Vd ~ 0.7L/kg * Goal trough level for SSTI: ~15 mcg/mL * Will assess a vanc level prior to the 3rd or 4th maintenance dose (or sooner if renal function changes significantly) Pharmacy will continue to follow and will adjust dose/frequency as necessary. Thank you.
--- NOTE | 2018-12-21 16:24 | Hospitalist Progress Note ---
Date of Service December 21, 2018 Assessment & Plan (1) Bilateral lower leg cellulitis: -Patient returns to hospital on 12/20/18 after previous hospitalization primarily for left eye visual changes for which patient was discharged on 12/18/18 to see ophthalmology doctor in clinic and as per patients daughter the diagnosis was macular degeneration. At the time patient had left leg cellulitis for which she is initially got cefazolin IV and then discharged on oral renally dosed BID Keflex. -Although the blood cultures from the previous admission returned as no growth, the patient returns to the emergency room with daughter for worsening erythema and tenderness of bilaterally lower extremities; Patients daughter concerned whether these skin changes are reactions to previous hospital or outpatient medications. Alternatively patient could have had worsening cellulitis; Blood cultures have been sent in the ED. ESR has been elevated and CRP is much more elevated compared to previous admission. -Patient started on vancomycin in the ED and will continue. The ceftriaxone as ordered by emergency room physician have by discontinued by hospitalist in case patient if having skin reactions to beta-lactams. Patient given IV Benadryl and will monitor whether there are some benefits of having antihistamine. -as of 12/21/18 patient continuing to receive Vancomycin alone and appears to be having some decrease in erythema and swelling, will await 12/20/18 blood culture results, no sloughing of the skin suggestive of allergic reactions but will continue Benadryl daily for now, continue with cold compresses as tolerated -Applying ice, PO benadryl for inflammation (2) Abnormal CXR: admission CXR with early developing interstitial infiltrate left base -procalcitonin level is no -breathing on room air. afebrile. unlikely that patient has pneumonia -will give incentive spirometry to prevent atelectasis (3) Hypertension: Continue metoprolol (4) Aortic stenosis: History of aortic stenosis and History of atrioventricular block History of atrial tachycardia and atrial fibrillation has pacemaker Patient had pacemaker interrogated on 12/18/18 in the hospital and no evidence of atrial fibrillation as per cardiology serviceon Metoprolol Succinate 12.5 mg daily Left eye Macular degeneration diagnosed since hospital discharge day on 12/18/18 to go see ophthalmology clinic as per patient's daughter patient has other ophthalmology follow ups as outpatient (5) Hypothyroidism: Continue Levothyroxine DVT Ppx: SQ heparin Code status:FULL PCP: Ivanna Subjective bilateral lower extremity erythema and swelling between knees and ankles appears improved in appearance compared to yesterday patient has been afebrile on room air denies chest pain or shortness of breath denies abdominal pain or vomiting Physical Exam Vital Signs (Past 24 Hours): Last Vital Signs Temp 37.0 C 12/21/18 15:59 Pulse 75 12/21/18 15:59 Resp 18 12/21/18 15:59 BP 125/72 12/21/18 15:59 Pulse Ox 96 12/21/18 15:59 Constitutional: WD/WN, vitals as above Eyes: PERRL, conjunctivae normal, anicteric sclerae EOM intact bilaterally ENMT: external ear and nose normal, oropharynx normal Neck: normal visual inspection and trachea midline Respiratory: normal respiratory effort, lungs clear to auscultation Cardiovascular: Rate/Rhythm: regular rate and regular rhythm Heart Sounds: + murmur Gastrointestinal (Abdomen): normal bowel sounds, soft, nontender, no hepatosplenomegaly Musculoskeletal: Extremities: + lower extremity abnormal to inspection (bilateral lower extremity erythema and swelling between knees and ankles) Neurologic: PERRL, EOMI, accommodation nl, no face palsy, no dysarthria CN's II-XI intact bilaterally Psychiatric: A+Ox3, euthymic affect
[2018-12-22] MEDS ORDERED: VANCOMYCIN HCL 1,250 MG in SODIUM CHLORIDE 0.9% 250 ML IV SCH (02:00)
[2018-12-22] MEDS: LEVOTHYROXINE SODIUM 100 MCG TABLET PO SCH (05:38)
[2018-12-22 07:01] LABS: Hematocrit (blood only) 35.5 % (37-47); Mean Corpuscular Volume 95.7 fL (80-100); Mean Platelet Volume 10.9 fL (7.4-10.4); Platelet Count 210 K/uL (130-400); RDW Coefficient of Variation 14.4 % (11.5-14.5); RDW Standard Deviation 50.5 fL (36.4-46.3); Red Blood Count 3.71 M/uL (4.2-5.4); White Blood Count 6.29 K/uL (4.8-10.8)
[2018-12-22 07:35] LABS: BUN Creatinine Ratio 28.1 (10-20); Calcium 7.6 mg/dl (8.5-10.1); Creatinine Clr Calc Pharmacy 63.7 ml/min; Est GFR (African American) 91.2; Est GFR (Non-African American) 78.7; Potassium 4.2 mmol/L (3.5-5.1)
[2018-12-22] MEDS: METOPROLOL SUCC 25MG EXT REL TAB PO SCH (08:20)
[2018-12-22] MEDS: ATORVASTATIN 40 MG TAB PO SCH (08:21)
[2018-12-22] MEDS: ASPIRIN 81 MG ECTAB PO SCH (08:22)
[2018-12-22] MEDS: HEPARIN SOD 5,000 UNIT/0.5 ML VIAL SQ SCH ×2 (08:23→21:23)
[2018-12-22] MEDS: CLINDAMYCIN 600 MG in DEXTROSE 5% 50 ML IV SCH ×2 (13:25→21:22)
--- NOTE | 2018-12-22 17:52 | Hospitalist Progress Note ---
Date of Service December 22, 2018 Assessment & Plan (1) Bilateral lower leg cellulitis: -Patient returns to hospital on 12/20/18 after previous hospitalization primarily for left eye visual changes for which patient was discharged on 12/18/18 to see ophthalmology doctor in clinic and as per patients daughter the diagnosis was macular degeneration. At the time patient had left leg cellulitis for which she is initially got cefazolin IV and then discharged on oral renally dosed BID Keflex. -Although the blood cultures from the previous admission returned as no growth, the patient returns to the emergency room with daughter for worsening erythema and tenderness of bilaterally lower extremities; Patients daughter concerned whether these skin changes are reactions to previous hospital or outpatient medications. Alternatively patient could have had worsening cellulitis; Blood cultures have been sent in the ED. ESR has been elevated and CRP is much more elevated compared to previous admission. -Patient started on vancomycin in the ED then continued. The ceftriaxone as ordered by emergency room physician have by discontinued by hospitalist in case patient if having skin reactions to beta-lactams. Patient given IV Benadryl and will monitor whether there are some benefits of having antihistamine. - 12/21/18 patient continuing to receive Vancomycin alone and appears to be having some decrease in erythema and swelling, will await 12/20/18 blood culture results, no sloughing of the skin suggestive of allergic reactions but will continue Benadryl daily for now, continue with cold compresses as tolerated -12/22/18: the 12/20/18 blood cultures with no growth to date and IV vancomycin has been switched to IV clindamycin q8 hours -Applying ice, PO benadryl for inflammation (2) Abnormal CXR: admission CXR with early developing interstitial infiltrate left base -procalcitonin level is no -breathing on room air. afebrile. unlikely that patient has pneumonia -incentive spirometry to prevent atelectasis (3) Hypertension: Continue metoprolol (4) Aortic stenosis: History of aortic stenosis and History of atrioventricular block History of atrial tachycardia and atrial fibrillation has pacemaker Patient had pacemaker interrogated on 12/18/18 in the hospital and no evidence of atrial fibrillation as per cardiology serviceon Metoprolol Succinate 12.5 mg daily Left eye Macular degeneration diagnosed since hospital discharge day on 12/18/18 to go see ophthalmology clinic as per patient's daughter patient has other ophthalmology follow ups as outpati ent (5) Hypothyroidism: Continue Levothyroxine DVT Ppx: SQ heparin Code status:FULL PCP: Ivanna Subjective bilateral lower extremity erythema and swelling between knees and ankles appears stable to somewhat improved in appearance compared to yesterday patient has been afebrile on room air denies chest pain or shortness of breath denies abdominal pain or vomiting no apparent current reactions to changes in IV antibiotics Physical Exam Vital Signs (Past 24 Hours): Last Vital Signs Temp 36.5 C 12/22/18 15:00 Pulse 75 12/22/18 15:00 Resp 21 12/22/18 15:00 BP 116/71 12/22/18 15:00 Pulse Ox 96 12/22/18 15:00 Constitutional: WD/WN, vitals as above Eyes: PERRL, conjunctivae normal, anicteric sclerae EOM intact bilaterally ENMT: external ear and nose normal, oropharynx normal Neck: normal visual inspection and trachea midline Respiratory: normal respiratory effort, lungs clear to auscultation Cardiovascular: Rate/Rhythm: regular rate and regular rhythm Heart Sounds: + murmur Gastrointestinal (Abdomen): normal bowel sounds, soft, nontender, no hepatosplenomegaly Musculoskeletal: Extremities: + lower extremity abnormal to inspection (bilateral lower extremity erythema and swelling between knees and ankles) Neurologic: PERRL, EOMI, accommodation nl, no face palsy, no dysarthria CN's II-XI intact bilaterally Psychiatric: A+Ox3, euthymic affect
[2018-12-23] MEDS: LEVOTHYROXINE SODIUM 100 MCG TABLET PO SCH (05:44)
[2018-12-23] MEDS: CLINDAMYCIN 600 MG in DEXTROSE 5% 50 ML IV SCH ×4 (05:44→22:13)
[2018-12-23 07:00] LABS: Basophils # (auto) 0.03 K/uL (0-0.2); Basophils % (auto) 0.5 %; Eosinophils # (auto) 0.54 K/uL (0-0.5); Eosinophils % (auto) 8.3 %; Hematocrit (blood only) 36.1 % (37-47); Hemoglobin 11.3 g/dL (12.0-16.0); Immature Granulocytes # (auto) 0.01 K/uL (0.00-0.02); Immature Granulocytes % (auto) 0.2 %; Lymphocytes # (auto) 1.17 K/uL (1.2-3.4); Lymphocytes % (auto) 17.9 %; Mean Corpuscular Hgb Conc 31.3 g/dL (32-36); Mean Corpuscular Volume 95.3 fL (80-100); Mean Platelet Volume 10.7 fL (7.4-10.4); Monocytes # (auto) 0.83 K/uL (0.11-0.59); Monocytes % (auto) 12.7 %; Neutrophils # (auto) 3.94 K/uL (1.4-6.5); Neutrophils % (auto) 60.4 %; Platelet Count 237 K/uL (130-400); RDW Coefficient of Variation 14.1 % (11.5-14.5); Red Blood Count 3.79 M/uL (4.2-5.4); White Blood Count 6.52 K/uL (4.8-10.8)
[2018-12-23 07:34] LABS: Albumin Level 2.6 gm/dl (3.4-5.0); BUN Creatinine Ratio 29.6 (10-20); Calcium 7.9 mg/dl (8.5-10.1); Creatinine Clr Calc Pharmacy 66.3 ml/min; Est GFR (African American) 92.2; Est GFR (Non-African American) 79.5; Potassium 4.2 mmol/L (3.5-5.1)
[2018-12-23 07:37] LABS: Albumin Globulin Ratio 0.6 (0.9-2); Bilirubin,Total 0.5 mg/dl (0.2-1); Globulin 4.1 gm/dl (2.5-4.0); Total Protein 6.7 gm/dl (6.4-8.2)
[2018-12-23] MEDS: ATORVASTATIN 40 MG TAB PO SCH (07:48)
[2018-12-23] MEDS: METOPROLOL SUCC 25MG EXT REL TAB PO SCH (07:48)
[2018-12-23] MEDS: ASPIRIN 81 MG ECTAB PO SCH (07:48)
[2018-12-23] MEDS: HEPARIN SOD 5,000 UNIT/0.5 ML VIAL SQ SCH ×2 (07:48→20:58)
--- NOTE | 2018-12-23 17:30 | Hospitalist Progress Note ---
Date of Service December 23, 2018 Assessment & Plan (1) Bilateral lower leg cellulitis: -Patient returns to hospital on 12/20/18 after previous hospitalization primarily for left eye visual changes for which patient was discharged on 12/18/18 to see ophthalmology doctor in clinic and as per patients daughter the diagnosis was macular degeneration. At the time patient had left leg cellulitis for which she is initially got cefazolin IV and then discharged on oral renally dosed BID Keflex. -Although the blood cultures from the previous admission returned as no growth, the patient returns to the emergency room with daughter for worsening erythema and tenderness of bilaterally lower extremities; Patients daughter concerned whether these skin changes are reactions to previous hospital or outpatient medications. Alternatively patient could have had worsening cellulitis; Blood cultures have been sent in the ED. ESR has been elevated and CRP is much more elevated compared to previous admission. -Patient started on vancomycin in the ED then continued. The ceftriaxone as ordered by emergency room physician have by discontinued by hospitalist in case patient if having skin reactions to beta-lactams. Patient given IV Benadryl and will monitor whether there are some benefits of having antihistamine. - 12/21/18 patient continuing to receive Vancomycin alone and appears to be having some decrease in erythema and swelling, will await 12/20/18 blood culture results, no sloughing of the skin suggestive of allergic reactions but continued Benadryl -12/22/18: the 12/20/18 blood cultures with no growth to date and IV vancomycin has been switched to IV clindamycin q8 hours -12/23/18 continue IV clindamycin for now; will stop benadryl as no allergic reactions to the clindamycin (2) Abnormal CXR: admission CXR with early developing interstitial infiltrate left base -procalcitonin level is normal -breathing on room air. afebrile. unlikely that patient has pneumonia -incentive spirometry to prevent atelectasis (3) Hypertension: Continue metoprolol (4) Aortic stenosis: History of aortic stenosis and History of atrioventricular block History of atrial tachycardia and atrial fibrillation has pacemaker Patient had pacemaker interrogated on 12/18/18 in the hospital and no evidence of atrial fibrillation as per cardiology service on Metoprolol Succinate 12.5 mg daily Left eye Macular degeneration diagnosed since hospital discharge day on 12/18/18 to go see ophthalmology clinic as per patient's daughter patient has other ophthalmology follow ups as outpatient (5) Hypothyroidism: Continue Levothyroxine DVT Ppx: SQ heparin Code status:FULL PCP: Ivanna Subjective patient has been afebrile on room air denies chest pain or shortness of breath denies abdominal pain or vomiting no apparent current allergic reactions IV clindamycin. Spoke with patient and family and plans to continue IV clindamycin as the leg swelling and erythema has gotten significantly better compare to this hospital admission day Physical Exam Vital Signs (Past 24 Hours): Last Vital Signs Temp 36.5 C 12/23/18 11:37 Pulse 76 12/23/18 11:37 Resp 18 12/23/18 11:37 BP 123/72 12/23/18 11:37 Pulse Ox 95 12/23/18 11:37 Constitutional: WD/WN, vitals as above Eyes: PERRL, conjunctivae normal, anicteric sclerae EOM intact bilaterally ENMT: external ear and nose normal, oropharynx normal Neck: normal visual inspection and trachea midline Respiratory: normal respiratory effort, lungs clear to auscultation Cardiovascular: Rate/Rhythm: regular rate and regular rhythm Heart Sounds: + murmur Gastrointestinal (Abdomen): normal bowel sounds, soft, nontender, no hepatosplenomegaly Musculoskeletal: Extremities: + lower extremity abnormal to inspection (bilateral lower extremity swelling between knees and ankles) Neurologic: PERRL, EOMI, accommodation nl, no face palsy, no dysarthria CN's II-XI intact bilaterally Psychiatric: A+Ox3, euthymic affect
[2018-12-24] MEDS: CLINDAMYCIN 600 MG in DEXTROSE 5% 50 ML IV SCH ×3 (05:54→21:57)
[2018-12-24] MEDS: LEVOTHYROXINE SODIUM 100 MCG TABLET PO SCH (05:55)
[2018-12-24] MEDS: HEPARIN SOD 5,000 UNIT/0.5 ML VIAL SQ SCH ×2 (08:06→21:57)
[2018-12-24] MEDS: ASPIRIN 81 MG ECTAB PO SCH (08:06)
[2018-12-24] MEDS: METOPROLOL SUCC 25MG EXT REL TAB PO SCH (08:41)
[2018-12-24] MEDS: ATORVASTATIN 40 MG TAB PO SCH (08:42)
--- NOTE | 2018-12-24 11:36 | Hospitalist Progress Note ---
Date of Service December 24, 2018 Assessment & Plan (1) Bilateral lower leg cellulitis: This referral to Dr. Zhang's notes previously Improved with IV clindamycin day #2 Continue for now Monitor closely (2) Abnormal CXR: admission CXR with early developing interstitial infiltrate left base No signs of pneumonia Continue to monitor (3) Hypertension: Continue metoprolol (4) Aortic stenosis: Per Dr. Zhang's notes History of aortic stenosis and History of atrioventricular block History of atrial tachycardia and atrial fibrillation has pacemaker Patient had pacemaker interrogated on 12/18/18 in the hospital and no evidence of atrial fibrillation as per cardiology service on Metoprolol Succinate 12.5 mg daily Left eye Macular degeneration diagnosed since hospital discharge day on 12/18/18 to go see ophthalmology clinic as per patient's daughter patient has other ophthalmology follow ups as outpatient (5) Hypothyroidism: Continue Levothyroxine DVT Ppx: SQ heparin Code status:FULL PCP: Ivanna Disposition pending Anticipate discharge to home with home health service medically stable Subjective Follow-up for leg cellulitis Seen resting in bed, comfortable, patient's caregiver was at bedside Denies pain in her legs Denies fever chills No chest pain, shortness of breath, palpitations, dizziness Patient was given given reports that her leg redness and swelling has improved at least 60% now Denies other symptoms Physical Exam Vital Signs (Past 24 Hours): Last Vital Signs Temp 36.7 C 12/24/18 11:34 Pulse 74 12/24/18 11:34 Resp 20 12/24/18 11:34 BP 125/80 12/24/18 11:34 Pulse Ox 96 12/24/18 11:34 Physical Exam: General- oriented x 3, not in distress, speaks in sentences with no effort or accessory muscle use Eyes- anicteric Neck- no JVD Lungs- clear breath sounds bilaterally, no rales/wheezes Heart- normal rate, regular rhythm; no murmurs Abdomen- normal bowel sounds, nondistended, soft, nontender Extremities-grade 1 lower leg edema, mild to moderate erythema, no warmth, no tenderness; no calf tenderness Neuro- alert, oriented x 3; no gross focal neurologic deficits Skin- warm & dry
[2018-12-25] MEDS: CLINDAMYCIN 600 MG in DEXTROSE 5% 50 ML IV SCH ×2 (06:05→13:50)
[2018-12-25] MEDS: LEVOTHYROXINE SODIUM 100 MCG TABLET PO SCH (06:07)
[2018-12-25] MEDS: HEPARIN SOD 5,000 UNIT/0.5 ML VIAL SQ SCH (07:43)
[2018-12-25] MEDS: METOPROLOL SUCC 25MG EXT REL TAB PO SCH (07:43)
[2018-12-25] MEDS: ASPIRIN 81 MG ECTAB PO SCH (07:43)
[2018-12-25] MEDS: ATORVASTATIN 40 MG TAB PO SCH (07:43)
--- NOTE | 2018-12-25 10:45 | Hospitalist Progress Note ---
Date of Service December 25, 2018 Assessment & Plan (1) Bilateral lower leg cellulitis: Improved with IV clindamycin Discharged on clindamycin p.o. x4 more days to complete 10 days total treatment Follow-up with primary care physician next week Discharge to home with home services Discussed with patient and her daughter at bedside They are agreeable and comfortable with plan of care (2) Abnormal CXR: admission CXR with early developing interstitial infiltrate left base No signs of pneumonia Continue to monitor (3) Hypertension: Continue metoprolol (4) Aortic stenosis: Per Dr. Zhang's notes History of aortic stenosis and History of atrioventricular block History of atrial tachycardia and atrial fibrillation has pacemaker Patient had pacemaker interrogated on 12/18/18 in the hospital and no evidence of atrial fibrillation as per cardiology service on Metoprolol Succinate 12.5 mg daily --Patient is euvolemic, continue usual medications Left eye Macular degeneration diagnosed since hospital discharge day on 12/18/18 to go see ophthalmology clinic as per patient's daughter patient has other ophthalmology follow ups as outpatient (5) Hypothyroidism: Continue Levothyroxine DVT Ppx: SQ heparin Code status:FULL PCP: Ivanna Disposition discharged to home with home health services Follow-up with primary care physician in 1 week Subjective Follow-up for leg cellulitis Resting in bed, comfortable at the bedside States she feels fine overall Denies leg pain Denies shortness of breath, chest pain, dizziness, headache No fever chills states She is ready would like to be discharged today Physical Exam Vital Signs (Past 24 Hours): Last Vital Signs Temp 36.8 C 12/25/18 07:52 Pulse 80 12/25/18 08:00 Resp 20 12/25/18 07:52 BP 133/76 12/25/18 07:52 Pulse Ox 92 12/25/18 07:52 Physical Exam: General- oriented x 2, not in distress, speaks in sentences with no effort or accessory muscle use Eyes- anicteric Neck- no JVD Lungs- clear breath sounds bilaterally no crackles/wheezing Heart- normal rate, regular rhythm; no murmurs Abdomen- normal bowel sounds, nondistended, soft, nontender Extremities-mild lower leg edema with mild erythema on the distal lower leg, no warmth, no calf tenderness Neuro- alert, oriented x 2; no gross focal neurologic deficits Skin- warm & dry
--- NOTE | 2018-12-25 11:13 | Discharge Summary ---
Date of Service December 25, 2018 Admission HPI Per Admitting Provider This is an 88-year-old female with a PMH of paroxysmal atrial fibrillation, hypothyroidism, history of aortic stenosis and AV block s/p permanent pacemaker, recent diagnosis of macular degeneration and recent LLE cellulitis who presents with worsening bilateral cellulitis times 3 days. Patient was recently admitted to service from 12/16-12/18 for visual changes and left lower extremity cellulitis. Patient was discharged on p.o. Keflex. Blood cultures from previous admission show no growth. Over the weekend, according to family, patient developed redness and warmth to left lower extremity as well as right lower extremity. Also complaining of dry cough, chills and frequent urination. Has completed 3 days of Keflex antibiotic but due to marketed increase in redness of legs, family brought back to ED for further evaluation. Denies fever, chills, lightheadedness, headache, chest pain, palpitations, shortness of breath, nausea, vomiting, abdominal pain, dysuria, diarrhea or constipation. Patient is afebrile and hemodynamically stable. No leukocytosis. Blood cultures were obtained and patient was started on vancomycin and ceftriaxone. Admission Exam Per Admitting Provider Vital Signs (Past 24 Hours): Last Vital Signs Temp 37.0 C 12/20/18 13:09 Pulse 70 12/20/18 14:50 Resp 18 12/20/18 14:50 BP 115/74 12/20/18 14:50 Pulse Ox 98 12/20/18 14:50 Physical Exam: General Appearance: WD/WN, no apparent distress, resting comfortably Head: normocephalic, atraumatic Eyes: normal inspection, PERRL, EOMI ENT: hearing grossly normal, pharynx normal (moist mucous membranes) Neck: supple, no JVD, no adenopathy Respiratory/Chest: lungs clear to auscultation. No wheezes, rales or rhonci. No respiratory distress or accessory muscle use Cardiovascular: regular rate, rhythm, no murmur, normal peripheral pulses Abdomen/GI: normal bowel sounds, soft, non-tender to palpation Extremities/Musculoskelatal: normal inspection, no calf tenderness, normal capillary refill, no pedal edema Neurologic/Psych: alert, normal mood/affect, oriented x 3 Skin: normal color, warm/dry. BLE erythema with edema distal to knees. No blistering or drainage noted. Tender to palpation. Principal Diagnosis BILATERAL LOWER LEG CELLULITIS Discharge Exam Vital Signs (Past 24 Hours): Last Vital Signs Temp 36.8 C 12/25/18 07:52 Pulse 80 12/25/18 08:00 Resp 20 12/25/18 07:52 BP 133/76 12/25/18 07:52 Pulse Ox 92 12/25/18 07:52 Physical Exam: General- oriented x 2, not in distress, speaks in sentences with no effort or accessory muscle use Eyes- anicteric Neck- no JVD Lungs- clear breath sounds bilaterally no crackles/wheezing Heart- normal rate, regular rhythm; no murmurs Abdomen- normal bowel sounds, nondistended, soft, nontender Extremities-mild lower leg edema with mild erythema on the distal lower leg, no warmth, no calf tenderness Neuro- alert, oriented x 2; no gross focal neurologic deficits Skin- warm & dry Discharge Data Allergies Allergy/AdvReac Type Severity Reaction Status Date / Time adhesive Allergy Intermediate SKIN Verified 12/20/18 13:20 IRRITATION morphine Allergy Unknown CAN'T Verified 12/20/18 13:20 REMEMBER Sulfa (Sulfonamide Allergy Unknown CAN'T Verified 12/20/18 13:20 Antibiotics) REMEMBER Consultations 12/20/18 14:39 ED Decision to Admit Stat Hospital Course (1) Bilateral lower leg cellulitis: per Dr. Zhang's notes: -Patient returns to hospital on 12/20/18 after previous hospitalization primarily for left eye visual changes for which patient was discharged on 12/18/18 to see ophthalmology doctor in clinic and as per patients daughter the diagnosis was macular degeneration. At the time patient had left leg cellulitis for which she is initially got cefazolin IV and then discharged on oral renally dosed BID Keflex. -Although the blood cultures from the previous admission returned as no growth, the patient returns to the emergency room with daughter for worsening erythema and tenderness of bilaterally lower extremities; Patients daughter concerned whether these skin changes are reactions to previous hospital or outpatient medications. Alternatively patient could have had worsening cellulitis; Blood cultures have been sent in the ED. ESR has been elevated and CRP is much more elevated compared to previous admission. -Patient started on vancomycin in the ED then continued. The ceftriaxone as ordered by emergency room physician have by discontinued by hospitalist in case patient if having skin reactions to beta-lactams. Patient given IV Benadryl and will monitor whether there are some benefits of having antihistamine. - given IV Vancomycin, showed improvement transitioned to IV Clindamycin, further improved --Discharged on clindamycin p.o. x4 more days to complete 10 days total treatment Follow-up with primary care physician next week Discharge to home with home services Discussed with patient and her daughter at bedside They are agreeable and comfortable with plan of care (2) Abnormal CXR: admission CXR with early developing interstitial infiltrate left base No signs of pneumonia (3) Hypertension: Continue metoprolol (4) Aortic stenosis: Per Dr. Zhang's notes History of aortic stenosis and History of atrioventricular block History of atrial tachycardia and atrial fibrillation has pacemaker Patient had pacemaker interrogated on 12/18/18 in the hospital and no evidence of atrial fibrillation as per cardiology service --on Metoprolol Succinate 12.5 mg daily --Patient is euvolemic, continue usual medications Left eye Macular degeneration diagnosed since hospital discharge day on 12/18/18 to go see ophthalmology clinic as per patient's daughter patient has other ophthalmology follow ups as outpatient (5) Hypothyroidism: Continue Levothyroxine Disposition discharged to home with home health services Follow-up with primary care physician in 1 week Total Time Total Time Spent Total Time Spent (In Minutes): 30 minutes Discharge Plan Discharge Items Patient Disposition: Home - Home Health Services Reason For Visit: BLE CELLULITIS, LLL PNEUMONIA Discharge Diagnosis: Cellulitis of the bilateral lower extremities Discharge Goals: Diagnostic testing and Therapeutic intervention Activity: As commented below Activity Comment: Resume activity gradually as tolerated Non-emergency contact: Primary Care Provider Call non-emergency contact if: you have any medication questions, your symptoms worsen, your pain is not controlled, your pain is worsening, your pain is unusual for you, your pain is concerning for you and you have a fever Diet: Heart Healthy Addtl Provider Instructions: Follow-up with primary care physician at the [facility] Dr. Roger on Friday, December 28, 2018 at 12:55 PM. Please call primary care physician immediately or return to the immediate increasing leg redness, warmth, swelling or if with fevers or chills, diarrhea. Take a probiotic daily while taking antibiotics and at least 1 week after. Always stay well hydrated. Prescriptions: New clindamycin HCl 300 mg capsule 300 mg PO QID 4 Days Qty: 16 RF: 0 Continued levothyroxine 100 mcg Tablet 100 mcg PO DAILY RF: 0 aspirin 81 mg tablet,chewable 81 mg PO QAM 30 Days Qty: 30 RF: 0 atorvastatin 40 mg Tablet 40 mg PO QAM 30 Days Qty: 30 RF: 0 metoprolol succinate 25 mg Tablet Extended Release 24 Hr 12.5 mg PO QAM 30 Days Qty: 15 RF: 0 Discontinued cephalexin 500 mg Capsule 500 mg PO BID 10 Days Qty: 20 RF: 0 Stand-Alone Forms: [facility] Discharge Orders: Discharge Order (Routine); Ordered 12/25/18 Ordered By: Tong Grimaldo Admission Data Admit Date/Time: 12/21/18 07:53 Attending Provider: Tong Grimaldo Admit Provider: Femi Zhang Primary Care Provider: China Goncalves Other Providers: Phyllis Navarro ; Femi Zhang Service: Telemetry Other Interventions: Discharge Summary Assessment (RN) Last Done: 12/25/18 11:12 DC Date/Time DO NOT enter until pt leaves facility: 12/25/18 15:18
== END 2018-12-25 15:18 | disposition home health service (06) | DRG 603 ==
LOC: 2N 12:59 → ED 12:59 → 2N 17:03 → SUATTDRO 12-21 07:53